=== PATIENT | male | born 1995 ===

== ENCOUNTER 2019-06-23 15:45 | Inpatient (IN) | payer BC ==
[~2019-06-23] VITALS: Ht 190.5 cm; Wt 93.1 kg
[2019-06-23] MEDS ORDERED: acetaminophen 325mg tablet PO PRN (18:25)
[2019-06-23] MEDS ORDERED: LORazepam 1 MG tablet PO PRN (18:25)
[2019-06-23] MEDS ORDERED: loperamide 2mg capsule PO PRN (18:25)
[2019-06-23] MEDS ORDERED: diphenhydrAMINE 25mg capsule PO PRN (18:25)
[2019-06-23] MEDS ORDERED: haloperidol 5mg tablet PO PRN (18:25)
[2019-06-23] MEDS ORDERED: mag hydrox/Alum hydrox/simeth 30ml oral suspension PO PRN (18:25)
[2019-06-23 19:04] VITALS: BP 134/78
[2019-06-23] MEDS ORDERED: TRAM50TA2 PO (19:26)
[2019-06-23] MEDS ORDERED: LURA60TA2 PO (19:26)
[2019-06-23] MEDS ORDERED: TRAZ-256 PO (19:26)
[2019-06-23] MEDS ORDERED: IBUP-1984 PO (19:26)
[2019-06-23] MEDS: acetaminophen 325mg tablet PO PRN (19:33)
[2019-06-23] MEDS ORDERED: traMADol 50MG tablet PO PRN (20:00)
[2019-06-23] MEDS: traZODone 50mg tablet PO SCH ×2 (20:42→21:25)
[2019-06-23] MEDS: lurasidone 60mg tablet PO SCH (20:42)
[2019-06-23] MEDS ORDERED: oxyCODONE IR 5mg (immed. release) tablet PO ONE (22:20)
--- NOTE | 2019-06-23 23:59 | NUR ---
Admission note: Pt admitted to [facility] on 5150 for DTS at 1800. Pt was transferred from [facility] where he was in the ICU for several days due to overdose on Wellbutrin. Apparently he took about 3000mg of this medication. He also has self-inflected lacerations to his wrists bilaterally. According to notes from [facility] medical records, they had to be surgically repaired and there was some nerve and tendon damage. Dressing has been changed and pictures are in his chart. Pt states that this is his first suicidal attempt but was diagnosed with depression in 2016. Pt states feeling "out of it, and just very depressed and hopeless." Pt also states he believes he is bipolar but no diagnoses has been made. There is no other medical history. Pt was oriented to the unit and his personal belonging were inventoried and stored by Mario COLON.
[2019-06-24] MEDS ORDERED: ibuprofen tablet 400 MG TABLET PO SCH
[2019-06-24] MEDS: lurasidone 60mg tablet PO SCH (07:38)
[2019-06-24] MEDS: oxyCODONE IR 5mg (immed. release) tablet PO PRN ×2 (07:39→21:08)
[2019-06-24 07:40] LABS: HEMOGLOBIN A1C 5.1 % (4.5-6.2)
[2019-06-24 07:54] LABS: CHOL/HDL RATIO 4.1 (0.00-4.99); CHOLESTEROL 128 MG/DL (0-200); HDL CHOLESTEROL 31 MG/DL (35-60); LDL CHOLESTEROL 86 MG/DL (50-100); TRIGLYCERIDES 101 MG/DL (20-135)
[2019-06-24 08:00] VITALS: BP 153/57
[2019-06-24] MEDS ORDERED: ondansetron 4mg rapidly disintigrating tab PO PRN (08:20)
[2019-06-24] MEDS: traMADol 50MG tablet PO PRN (10:36)
[2019-06-24] MEDS: ibuprofen tablet 400 MG TABLET PO PRN (14:33)
[2019-06-24] MEDS: LORazepam 1 MG tablet PO PRN (14:33)
[2019-06-24] MEDS: acetaminophen 325mg tablet PO PRN (14:33)
--- NOTE | 2019-06-24 15:55 | NUR ---
PSYCHOSOCIAL ASSESSMENT Pascual is a 24 y/o single male who was placed on 5150 for danger to self. He had been visiting his uncle and cousins in [facility] and began to experience extreme anxiety which led to suicidal ideation. He cut both wrists laterally which resulted in nerve and ligament damage which required surgery. He also overdosed on Wellbutrin. He reported he cut himself and overdosed in an attempt to end his life. He reported he called 911 himself. He ended up in the ICU due to the overdose. Pascual reported he was hospitalized at [facility] for 11 days in 2018 due to a psychotic episode. He described this episode as he was hearing voices, was paranoid, not sleeping, and was struggling with living on his own and going to college. He reported he was hospitalized again at [facility] 3-4 months ago for 3 days due to erratic behavior. He presented as significantly depressed and hopeless. He indicated feeling hopeless about his current physical limitations due to injuries to both arms. He reported he is still having suicidal ideation. He currently sees a psychiatrist, Dr Zaragoza, at [facility] and sees a therapist, [facility], weekly. TERRENCE Resendiz Addendum: 06/24/19 at 1556 by Milagros Lai Amended: Links added.
--- NOTE | 2019-06-24 16:10 | NUR ---
NURSING PROGRESS NOTE Legal hold: 5150 Client on involuntary status for DTS Report received from BARAK Mahoney with use of SBAR Why are they here: Pt admitted to [facility] on 5150 for DTS. Pt was transferred from [facility] where he was in the ICU for several days due to overdose on 3000mg Wellbutrin. He also has self-inflicted lacerations with sutures to bilateral wrists with tendon and nerve damage. Pt states that this is his first suicidal attempt and was diagnosed with depression in 2016. Pt states feeling "out of it, and just very depressed and hopeless." Assessment What has happened this shift: Asleep at change of shift. Depressed mood, flat affect. Bilateral forearms in splints/wraps. Has multiple LAC's with suturing per wound pictures and c/o pain, burning and some numbness to left fingers. Medicated for pain with Oxy ER, Ultram, Motrin and Tylenol. C/O nausea and obtained order for Zofran. The patient also was given Ativan 1mg for anxiety. He was up on the unit and watching TV briefly. Was able to lay down in afternoon and fall asleep. States he feels severely depressed and hopeless and is having suicidal thoughts. Wound consult was ordered and hospitalist visited patient today. Medication compliant and eating meals. Due to difficulty in cutting food diet order changed to chopped foods. Needs help with ADL's and positioning support pillows due to wounds. S/I, H/I: suicidal thoughts A/VH: denies Sleep: napped ADL's: needs assistance due to splints Group attendance: N/A Were meds taken: yes Any med S/E: none Mental Status Exam Appearance: street clothes, disheveled Eye contact: fair Behavior: cooperative Speech: slow, soft Mood: depressed Affect: flat, hopeless Thought process: linear Thought Content: hopelessness Cognition: alert Insight: poor Judgment: poor Interventions PRN's used: Oxy ER, Zofran, Ultram, Motrin, Tylenol, Ativan Therapeutic interventions: 1:1 assessment, established rapport, active listening, medication administration/education/monitoring, encouragement to participate in milieu, maintained q15m safety checks. Restraints/seclusion/emergency medication: None Justification of Continued Inpatient Treatment: Requires interruption of current crisis, medication adjustments, and a safe and supportive environment to prevent readmission.
[2019-06-24] MEDS ORDERED: gabapentin 300mg capsule PO STA (20:00)
[2019-06-24 20:19] VITALS: BP 118/79
[2019-06-24] MEDS ORDERED: lurasidone 60mg tablet PO ONE (20:45)
[2019-06-24] MEDS: traZODone 50mg tablet PO SCH (21:01)
--- NOTE | 2019-06-25 00:30 | NUR ---
NURSING PROGRESS NOTE Legal hold: 5150 Client on involuntary status for DTS Report received from BARAK Mixon with use of SBAR Why are they here: Pt admitted to [facility] on 5150 for DTS. Pt was transferred from [facility] where he was in the ICU for several days due to overdose on 3000mg Wellbutrin. He also has self-inflicted lacerations with sutures to bilateral wrists with tendon and nerve damage. Pt states that this is his first suicidal attempt and was diagnosed with depression in 2016. Pt states feeling "out of it, and just very depressed and hopeless." Assessment What has happened this shift: Pt was in his room during shift change and appeared to be sleeping comfortably. He is till complaining of significant pain to his hands. He was started on Gabapentin and per provider order, first dose was given today and his dose of midnight will be held. He also received Oxy IR 5mg for a 6/10 pain. Pt states that this helps him sleep as well and reports some pain relief from this medication. There was other medication adjustment made, including some changes with his Latuda. He was cooperative during 1:1 physical assessment and took his HS meds. He states that he feels better and his main complain is his pain. He denies any anxiety however, still appears pretty hopeless and depressed. Pt is still endorsing some suicidal thoughts. He remains isolative to his room for most of the evening and night. S/I, H/I: passive S/I, denies H/I A/VH: Denies Sleep: Currently sleeping, see sleep assessment for total hours ADL's: mostly independent, needs some assistance due to splints Group attendance: None during tax analyst Were meds taken: yes Any med S/E: none observed or reported Mental Status Exam Appearance: Appropriate, wearing personal clothing Eye contact: Direct Behavior: cooperative, guarded, isolative Speech: Normal rate and rhythm Mood: pt states he is feeling better but still appears very depressed Affect: Flat Thought process: linear Thought Content: Managing his pain, medication, being able to sleep at night Cognition: Alert and oriented X4 Insight: poor Judgment: poor Interventions PRN's used: Oxy IR 5mg X1 Therapeutic interventions: 1:1 assessment, established rapport, active listening, medication administration/education/monitoring, encouragement to participate in milieu, maintained q15m safety checks. Restraints/seclusion/emergency medication: None Justification of Continued Inpatient Treatment: Requires interruption of current crisis, medication adjustments, and a safe and supportive environment to prevent readmission.
[2019-06-25 08:00] VITALS: BP 101/55
[2019-06-25] MEDS: ibuprofen tablet 400 MG TABLET PO PRN ×2 (08:09→16:14)
[2019-06-25] MEDS: gabapentin 300mg capsule PO SCH ×3 (08:09→16:14)
[2019-06-25] MEDS: oxyCODONE IR 5mg (immed. release) tablet PO PRN ×2 (08:10→17:35)
[2019-06-25] MEDS: docusate sod 100mg capsule PO SCH ×2 (08:12→20:19)
[2019-06-25] MEDS: lurasidone 60mg tablet PO SCH ×2 (12:17→17:35)
[2019-06-25] MEDS: traMADol 50MG tablet PO PRN ×2 (12:45→20:27)
--- NOTE | 2019-06-25 14:31 | NUR ---
NURSING PROGRESS NOTE Legal hold: 5150 Client on involuntary status for DTS Report received from ROSALBA Man, with use of SBAR Why are they here: Pt admitted to [facility] on 5150 for DTS. Pt was transferred from [facility] where he was in the ICU for several days due to overdose on 3000mg Wellbutrin. He also has self-inflicted lacerations with sutures to bilateral wrists with tendon and nerve damage. Pt states that this is his first suicidal attempt and was diagnosed with depression in 2016. Pt states feeling "out of it, and just very depressed and hopeless." Assessment What has happened this shift: Asleep at change of shift. Depressed mood, flat affect. Eating meals and medication compliant. Pain to bilat wrists injuries. Given OXY ER, Ultram and Motrin. also now has order for gabapentin which seems to be helping. Wound care nurse evaluated patient today and placed new wound care orders. Splints are to stay on for 6-8 weeks. Patient was up to shower with assist and had BM today. Education provided regarding disease process ad managing and living with mental illness which was well received. Smiling a bit today. Wounds cleansed and dressed today, splints remain in place. S/I, H/I: denies A/VH: denies Sleep: napped ADL's: needs assistance due to splints Group attendance: N/A Were meds taken: yes Any med S/E: none Mental Status Exam Appearance: Eye contact: fair Behavior: cooperative Speech: slow, soft Mood: depressed Affect: flat Thought process: linear Thought Content: the past and future Cognition: alert Insight: poor Judgment: poor Interventions PRN's used: Oxy ER, Ultram, Motrin Therapeutic interventions: 1:1 assessment, established rapport, active listening, medication administration/education/monitoring, encouragement to participate in milieu, maintained q15m safety checks. Restraints/seclusion/emergency medication: None Justification of Continued Inpatient Treatment: Requires interruption of current crisis, medication adjustments, and a safe and supportive environment to prevent readmission.
--- NOTE | 2019-06-25 15:17 | NUR ---
PHONE CALL W/MOM Spoke to Pascual's mom, Joycelyn (ph# [phone]) multiple times. Answered questions and requested she bring Pascual a few clothing items and books that he requested. [employer] Offbearer encouraged Pascual to call his therapist, [facility], to schedule a time to talk to him next week. Joycelyn requested we talk to Pascual's psychiatrist Dr Zaragoza to coordinate care. Dr Zaragoza: ph# [phone] (6 to reach minute clerk) ext: [phone] Zaragoza's respiratory care assistant, TERRENCE Monreal
[2019-06-25] MEDS: acetaminophen 325mg tablet PO PRN (16:15)
[2019-06-25] MEDS ORDERED: ondansetron 4mg rapidly disintigrating tab PO PRN (18:30)
[2019-06-25 20:05] VITALS: BP 124/67
[2019-06-25] MEDS: traZODone 50mg tablet PO SCH (20:19)
--- NOTE | 2019-06-26 00:42 | NUR ---
NURSING PROGRESS NOTE Legal hold: 5150 Client on involuntary status for DTS Report received from BARAK Mixon with use of SBAR Why are they here: Pt admitted to [facility] on 5150 for DTS. Pt was transferred from [facility] where he was in the ICU for several days due to overdose on 3000mg Wellbutrin. He also has self-inflicted lacerations with sutures to bilateral wrists with tendon and nerve damage. Pt states that this is his first suicidal attempt and was diagnosed with depression in 2016. Pt states feeling "out of it, and just very depressed and hopeless." Assessment What has happened this shift: Pt was in his room during shift change wearing green unit scrubs. He says he had a good day as he talked to his therapist a and his mom so that was nice. Pt is still complaining of a 7/10 pain, even after taking Oxy. He states that it doesnt really help much with the pain it just makes him not care as much. Pt states that he would like to go to bed early. There was no wound dressing change done as this is a once a day order. Pt states that he feels a little bit better but still not too good. He is endorsing S/I not right now but often times through out the day. When asked about anxiety he states that he is having a little bit, just from being here. Although there has been some improvement in patients mood, as he was socializing and smiling with other patients, he still presents as depressed. Tramadol was given at patients request with good effect. S/I, H/I: passive S/I, denies H/I A/VH: Denies Sleep: Currently sleeping, see sleep assessment for total hours ADL's: mostly independent, needs some assistance due to splints Group attendance: None during night auditor Were meds taken: yes Any med S/E: none observed or reported Mental Status Exam Appearance: Appropriate, green unit scrubs Eye contact: Direct Behavior: cooperative, calm, interacting with other patients in the unit Speech: Normal rate and rhythm Mood: Depressed Affect: Flat Thought process: linear Thought Content: Managing his pain, depression and anxiety. Cognition: Alert and oriented X4 Insight: poor Judgment: poor Interventions PRN's used: Tramadol X1 Therapeutic interventions: 1:1 assessment, established rapport, active listening, medication administration/education/monitoring, encouragement to participate in milieu, maintained q15m safety checks. Restraints/seclusion/emergency medication: None Justification of Continued Inpatient Treatment: Requires interruption of current crisis, medication adjustments, and a safe and supportive environment to prevent readmission.
[2019-06-26 07:25] VITALS: BP 135/66
[2019-06-26] MEDS: gabapentin 300mg capsule PO SCH ×3 (08:06→16:01)
[2019-06-26] MEDS: docusate sod 100mg capsule PO SCH ×2 (08:06→20:19)
[2019-06-26] MEDS: lurasidone 60mg tablet PO SCH ×2 (12:27→17:39)
[2019-06-26] MEDS: oxyCODONE IR 5mg (immed. release) tablet PO PRN ×2 (12:40→20:19)
--- NOTE | 2019-06-26 16:33 | NUR ---
PT here for consult with pt. Per PT pt should keep Right wrist as straight as possible at all times. With his Left hand he should do simple finger stretches through the day. PT will come every day to work with him as well.
--- NOTE | 2019-06-26 17:24 | NUR ---
NURSING PROGRESS NOTE Legal hold: 5150 Client on involuntary status for DTS Report received from ROSALBA Man with use of SBAR Why are they here: Pt admitted to [facility] on 5150 for DTS. Pt was transferred from [facility] where he was in the ICU for several days due to overdose on 3000mg Wellbutrin. He also has self-inflicted lacerations with sutures to bilateral wrists with tendon and nerve damage. Pt states that this is his first suicidal attempt and was diagnosed with depression in 2016. Pt states feeling "out of it, and just very depressed and hopeless." Assessment What has happened this shift: Pt was in bed at beginning of shift. He ate breakfast and took medications. He denies SI/HI/ AH/VH, states ok for now and when asked about anxiety and depression he states not yet. Pt bilateral splints in tact. He then slept for the morning. Bilateral Dressing changes and wound care as per instruction done after lunch. Cap refill <3 with + motion. Decreased sensation bilaterally but Left more than right. He remained in bed most of the day sleeping. PT came for consult. S/I, H/I: Denies A/VH: Denies Sleep: 8.5h per noc assessment ADL's: Independent with some assist for bilateral splints Group attendance: No groups at this time. Were meds taken: Yes Any med S/E: None Mental Status Exam Appearance: Wearing his own shirt and green scrub pants. Eye contact: Direct Behavior: Quiet, depressed Speech: WNL Mood: Ok Affect: Congruent to mood Thought process: Circumstantial Thought Content: Concerned about extent of damage to upper extremities Cognition: Alert and oriented X4 Insight: poor Judgment: poor Interventions PRN's used: Oxy IR Therapeutic interventions: 1:1 assessment, established rapport, active listening, medication administration/education/monitoring, encouragement to participate in milieu, maintained q15m safety checks. Restraints/seclusion/emergency medication: None Justification of Continued Inpatient Treatment: Requires interruption of current crisis, medication adjustments, and a safe and supportive environment to prevent readmission.
[2019-06-26] MEDS: ibuprofen tablet 400 MG TABLET PO PRN (18:48)
[2019-06-26 19:36] VITALS: BP 138/89
[2019-06-26] MEDS: traZODone 50mg tablet PO SCH (20:18)
--- NOTE | 2019-06-27 00:01 | NUR ---
NURSING PROGRESS NOTE Legal hold: 5150 Client on involuntary status for DTS Report received from ROSALBA Mixon with use of SBAR Why are they here: Pt admitted to [facility] on 5150 for DTS. Pt was transferred from [facility] where he was in the ICU for several days due to overdose on 3000mg Wellbutrin. He also has self-inflicted lacerations with sutures to bilateral wrists with tendon and nerve damage. Pt states that this is his first suicidal attempt and was diagnosed with depression in 2016. Pt states feeling "out of it, and just very depressed and hopeless." Assessment: What has happened this shift: Pt in room at start of shift. A+Ox4 Guarded, affect blunted, minimal answers to questions. Does not volunteer information. Given Motrin for pain per request, also given Oxy IR when due at 21:00. Pt declined Dressing change "done already today only supposed to be done once a day" States he is depressed which he rates 6/10 which he says is better than he has been. Admits to , asked if he has a plan "Not really" Pt came briefly to group room sat in the corner interacted with another pt who approached him then returned to room. S/I, H/I: Denies A/VH: Denies Sleep: asleep ADL's: Independent with some assist for bilateral splints Group attendance: No groups at this time. Were meds taken: Yes Any med S/E: None Mental Status Exam Appearance: Wearing his own shirt and green scrub pants. Eye contact: Direct Behavior: Quiet, depressed Speech: WNL Mood: Ok Affect: Congruent to mood Thought process: Circumstantial Thought Content: Concerned about extent of damage to upper extremities Cognition: Alert and oriented X4 Insight: poor Judgment: poor Interventions PRN's used: Oxy IR, Motrin Therapeutic interventions: 1:1 assessment, established rapport, active listening, medication administration/education/monitoring, encouragement to participate in milieu, maintained q15m safety checks. Restraints/seclusion/emergency medication: None Justification of Continued Inpatient Treatment: Requires interruption of current crisis, medication adjustments, and a safe and supportive environment to prevent readmission.
[2019-06-27] MEDS: gabapentin 300mg capsule PO SCH ×4 (07:39→20:22)
[2019-06-27] MEDS: docusate sod 100mg capsule PO SCH ×2 (07:39→20:21)
[2019-06-27 07:49] VITALS: BP 105/63
[2019-06-27] MEDS: oxyCODONE IR 5mg (immed. release) tablet PO PRN ×2 (07:57→20:21)
[2019-06-27] MEDS: ibuprofen tablet 400 MG TABLET PO PRN (13:14)
[2019-06-27] MEDS: lurasidone 60mg tablet PO SCH ×2 (13:14→18:06)
--- NOTE | 2019-06-27 16:13 | NUR ---
NURSING PROGRESS NOTE Legal hold: 5150 Client on involuntary status for DTS Report received from Alexandra Maharaj RN with use of SBAR Why are they here: Pt admitted to [facility] on 5150 for DTS. Pt was transferred from [facility] where he was in the ICU for several days due to overdose on 3000mg Wellbutrin. He also has self-inflicted lacerations with sutures to bilateral wrists with tendon and nerve damage. Pt states that this is his first suicidal attempt and was diagnosed with depression in 2016. Pt states feeling "out of it, and just very depressed and hopeless." Assessment What has happened this shift: Pt was resting in bed peacefully at change of shift. He denies SI/HI/ AH/VH, states "I regret what I did. I am in pain". PRN pain medication and scheduled gabapentin were administered. He took his medications without incident and ate his meals in his room. He was seen up and socializing with peers periodically throughout the day. Bilateral Dressing changes and wound care as per instruction done after lunch. Cap refill <3 with + motion. Decreased sensation bilaterally but Left more than right. Right hand and fingers cold to the touch, but no cyanosis or discoloration noted. He is pleasant and cooperative with care. S/I, H/I: Denies A/VH: Denies, does not appear to be responding to internal stimuli Sleep: naps intermittently before lunch ADL's: Independent with some assist for bilateral splints and covering dressings to bathe Group attendance: No groups at this time. Were meds taken: Yes Any med S/E: None Mental Status Exam Appearance: Wearing his own shirt and shorts Eye contact: Direct Behavior: withdrawn, depressed Speech: normal rate and cyn Mood: "I am alright", appears depressed Affect: Congruent to mood Thought process: Circumstantial Thought Content: Concerned about extent of damage to upper extremities, wondering if PT will visit today. in pain Cognition: Alert and oriented X4 Insight: poor Judgment: poor Interventions PRN's used: Oxy IR, motrin Therapeutic interventions: 1:1 assessment, established rapport, active listening, medication administration/education/monitoring, encouragement to participate in milieu, maintained q15m safety checks. Restraints/seclusion/emergency medication: None Justification of Continued Inpatient Treatment: Requires interruption of current crisis, medication adjustments, and a safe and supportive environment to prevent readmission.
[2019-06-27 19:50] VITALS: BP 134/68
[2019-06-27] MEDS: traZODone 50mg tablet PO SCH (20:21)
--- NOTE | 2019-06-27 23:24 | NUR ---
NURSING PROGRESS NOTE Legal hold: 5150 Client on involuntary status for DTS Report received from Alexandra Mixon RN with use of SBAR Why are they here: Pt admitted to [facility] on 5150 for DTS. Pt was transferred from [facility] where he was in the ICU for several days due to overdose on 3000mg Wellbutrin. He also has self-inflicted lacerations with sutures to bilateral wrists with tendon and nerve damage. Pt states that this is his first suicidal attempt and was diagnosed with depression in 2016. Pt states feeling "out of it, and just very depressed and hopeless." Assessment What has happened this shift: Pt up on unit at change of shift. He watched a movie in group room with other pts. PRN pain medication and scheduled gabapentin for bilateral arm pain rated 7 by pt. He is pleasant and cooperative with care. Pt affect is depressed he reports his depression has improved since admit he says he has "occasional" suicidal thoughts but no plan. Bilateral Dressings CD+I . Decreased sensation bilaterally but Left more than right. Right hand and fingers cooler than left to the touch, but pink with good capillary refill. S/I, H/I: Denies A/VH: Denies, does not appear to be responding to internal stimuli Sleep: asleep at this time ADL's: Independent with some assist for bilateral splints and covering dressings to bathe Group attendance: No groups at this time. Were meds taken: Yes Any med S/E: None Mental Status Exam Appearance: Wearing his own shirt and shorts Eye contact: Direct Behavior: withdrawn, depressed Speech: normal rate and cyn Mood: "I am alright", appears depressed Affect: Congruent to mood Thought process: Circumstantial Thought Content: Concerned about extent of damage to upper extremities, wondering if PT will visit today. in pain Cognition: Alert and oriented X4 Insight: poor Judgment: poor Interventions PRN's used: Oxy IR, motrin Therapeutic interventions: 1:1 assessment, established rapport, active listening, medication administration/education/monitoring, encouragement to participate in milieu, maintained q15m safety checks. Restraints/seclusion/emergency medication: None Justification of Continued Inpatient Treatment: Requires interruption of current crisis, medication adjustments, and a safe and supportive environment to prevent readmission.
[2019-06-28 08:00] VITALS: BP 118/66
[2019-06-28] MEDS: docusate sod 100mg capsule PO SCH ×2 (08:03→19:30)
[2019-06-28] MEDS: ibuprofen tablet 400 MG TABLET PO PRN (08:03)
[2019-06-28] MEDS: gabapentin 300mg capsule PO SCH ×3 (08:03→19:31)
[2019-06-28] MEDS: oxyCODONE IR 5mg (immed. release) tablet PO PRN ×2 (10:29→17:35)
--- NOTE | 2019-06-28 11:05 | NUR ---
Initial: Pt admit on 5150 w/ SI, bilateral wrist lacerations currently sutured and intact without signs of infection per WOC, and r/o schizoaffective bipolar disorder per PA note. S/p L median nerve repair since laceration damage from SI per EMR. PO 75-100% avg regular diet meeting needs; Edward shake BIDBD added to meals given wounds. PA notified. LBM 06/25. No nutrition concerns at this time. Will continue to monitor. Rec: 1. continue regular diet 2. Edward shake BIDBD 3. routine bowel care 4. wt per rx Addendum: 06/28/19 at [address] Amended: Links added.
[2019-06-28] MEDS: lurasidone 60mg tablet PO SCH ×2 (12:15→17:31)
[2019-06-28] MEDS: traMADol 50MG tablet PO PRN ×2 (12:15→19:31)
[2019-06-28] MEDS: magnesium hydroxide 30ml (MOM) UD suspension PO PRN (13:01)
--- NOTE | 2019-06-28 14:44 | NUR ---
NURSING PROGRESS NOTE Legal hold: 5150 Client on involuntary status for DTS Report received from Alexandra Maharaj RN with use of SBAR Why are they here: Pt admitted to [place] [facility] on 5150 for DTS. Pt was transferred from [facility] where he was in the ICU for several days due to overdose on 3000mg Wellbutrin. He also has self-inflicted lacerations with sutures to bilateral wrists with tendon and nerve damage. Pt states that this is his first suicidal attempt and was diagnosed with depression in 2016. Pt states feeling "out of it, and just very depressed and hopeless." Assessment What has happened this shift: Pt was resting in bed peacefully at change of shift. He is pleasant and cooperative with care and takes his medications without incident. Patient reports that his pain in his arms, especially in his right are getting worse since his surgery. Patient was seen by Dr. He and per Dr. He, patient will now need assistance with feeding to rest his bilateral upper extremities. He received PRN Motrin, Tramadol and oxycodone. Dressings changed and are currently CDI with bilateral splints in place to limit ROM and usage. He currently denies SI/HI, A/VH and has had some moments of brightening, smiling at this RN during conversation, however, he remains distant and blunted. Spoke to patient's mother, Joycelyn ([phone]), who is very supportive of patient and states that the patient was becoming increasingly more depressed as he was tapering off of the olanzapine. She reports that the patient was on Wellbutrin for approximately 5 days when he had his attempt. Patient's mother is hoping to speak to Dr. He at some point, but Dr. He had left the unit prior to the conversation with patient's mother. S/I, H/I: Denies A/VH: Denies, does not appear to be responding to internal stimuli Sleep: naps intermittently before lunch ADL's: Independent with some assist for bilateral splints and covering dressings to bathe Group attendance: No groups at this time. Were meds taken: Yes Any med S/E: None Mental Status Exam Appearance: Wearing his own shirt and shorts Eye contact: Direct Behavior: withdrawn, depressed Speech: normal rate and cyn Mood: "I am alright", appears depressed Affect: Congruent to mood Thought process: Circumstantial Thought Content: Concerned about extent of damage to upper extremities, wondering if PT will visit today. in pain Cognition: Alert and oriented X4 Insight: poor Judgment: poor Interventions PRN's used: Oxy IR, motrin Therapeutic interventions: 1:1 assessment, established rapport, active listening, medication administration/education/monitoring, encouragement to participate in milieu, maintained q15m safety checks. Restraints/seclusion/emergency medication: None Justification of Continued Inpatient Treatment: Requires interruption of current crisis, medication adjustments, and a safe and supportive environment to prevent readmission.
[2019-06-28] MEDS: JUVEN Shake w/Arg/Glut/Ca2+Bmb (Juven 19.3gm) pkt 240ml PO SCH (17:30)
[2019-06-28 20:00] VITALS: BP 131/80
[2019-06-28] MEDS: traZODone 50mg tablet PO SCH (20:03)
--- NOTE | 2019-06-28 21:25 | NUR ---
NURSING PROGRESS NOTE Legal hold: 5150 Client on involuntary status for DTS Report received from Alexandra Maharaj RN with use of SBAR Why are they here: Pt admitted to [place] [facility] on 5150 for DTS. Pt was transferred from [facility] where he was in the ICU for several days due to overdose on 3000mg Wellbutrin. He also has self-inflicted lacerations with sutures to bilateral wrists with tendon and nerve damage. Pt states that this is his first suicidal attempt and was diagnosed with depression in 2016. Pt states feeling "out of it, and just very depressed and hopeless." Assessment What has happened this shift: Pt was in the sutton at change of shift, reports he just finished dinner and appetite is good. pt requested assistance with brushing his teeth and changing his rubber bands on his braces. Pt continues to have pain in his arms and ultram was provided with evening meds. He states he would like to go to bed early and was assisted with getting into bed. S/I, H/I: Denies A/VH: Denies, does not appear to be responding to internal stimuli Sleep: reports sleeping well at night ADL's: Independent with some assist for bilateral splints and covering dressings to bathe, also needs help brushing teeth, getting into bed and eating Group attendance: No groups at this time. Were meds taken: Yes Any med S/E: None Mental Status Exam Appearance: Wearing his own shirt and shorts Eye contact: Direct Behavior: withdrawn, depressed Speech: normal rate and rhythm Mood: pt reports hes feeling "better" Affect: Congruent to mood Thought process: Circumstantial Thought Content: Pain and wanting to go to sleep early Cognition: Alert and oriented X4 Insight: poor Judgment: poor Interventions PRN's used: ultram Therapeutic interventions: 1:1 assessment, established rapport, active listening, medication administration/education/monitoring, encouragement to participate in milieu, maintained q15m safety checks. Restraints/seclusion/emergency medication: None Justification of Continued Inpatient Treatment: Requires interruption of current crisis, medication adjustments, and a safe and supportive environment to prevent readmission.
[2019-06-29] MEDS: JUVEN Shake w/Arg/Glut/Ca2+Bmb (Juven 19.3gm) pkt 240ml PO SCH ×2 (07:30→17:30)
[2019-06-29 08:00] VITALS: BP 116/83
[2019-06-29] MEDS: gabapentin 300mg capsule PO SCH ×2 (08:26→13:31)
[2019-06-29] MEDS: docusate sod 100mg capsule PO SCH ×2 (08:26→20:04)
[2019-06-29] MEDS: traMADol 50MG tablet PO PRN ×2 (08:34→19:02)
[2019-06-29] MEDS: oxyCODONE IR 5mg (immed. release) tablet PO PRN ×2 (12:11→20:04)
[2019-06-29] MEDS: lurasidone 60mg tablet PO SCH ×2 (12:49→17:53)
[2019-06-29] MEDS: ibuprofen tablet 400 MG TABLET PO PRN (13:31)
--- NOTE | 2019-06-29 17:39 | NUR ---
NURSING PROGRESS NOTE Legal hold: 5150 Client on involuntary status for DTS Report received from ROSALBA Mahoney with use of SBAR Why are they here: Pt admitted to [place] [facility] on 5150 for DTS. Pt was transferred from [facility] where he was in the ICU for several days due to overdose on 3000mg Wellbutrin. He also has self-inflicted lacerations with sutures to bilateral wrists with tendon and nerve damage. Pt states that this is his first suicidal attempt and was diagnosed with depression in 2016. Pt states feeling "out of it, and just very depressed and hopeless." Assessment What has happened this shift: Pt sleeping at start of shift. Pt awoke for breakfast. During his morning assessment pt c/o pain 7/10 bilateral wrists. Provided Tylenol then followed up w/Oxycodone. Pt later given Motrin. Pt came out and joined peers for a movie socializing some w/both staff and peers. Provided assistance with drinking, eating and brushing his teeth. S/I, H/I: Denies A/VH: Denies Sleep: Napped in AM ADL's: Max assist Group attendance: N/A. Were meds taken: Yes Any med S/E: None Mental Status Exam Appearance: Wears his own clothing Eye contact: Direct Behavior: withdrawn, depressed Speech: Clear, normal rate and rhythm Mood: Appears depressed Affect: Congruent to mood Thought process: Circumstantial Thought Content: He is concerned about the damage to his arms Cognition: A/Ox4 Insight: Fair Judgment: Poor Interventions PRN's used: Oxy IR, Motrin, Tylenol Therapeutic interventions: 1:1 assessment, established rapport, active listening, medication administration/education/monitoring, encouragement to participate in milieu, maintained q15m safety checks. Restraints/seclusion/emergency medication: None Justification of Continued Inpatient Treatment: Requires interruption of current crisis, medication adjustments, and a safe and supportive environment to prevent readmission.
[2019-06-29] MEDS: LORazepam 1 MG tablet PO PRN (18:00)
[2019-06-29 20:00] VITALS: BP 147/81
[2019-06-29] MEDS: gabapentin 400mg capsule PO SCH ×2 (20:04→21:00)
[2019-06-29] MEDS: traZODone 50mg tablet PO SCH (20:04)
--- NOTE | 2019-06-29 23:46 | NUR ---
NURSING PROGRESS NOTE Legal hold: 5150 Client on involuntary status for DTS Report received from ROSALBA Spear with use of SBAR Why are they here: Pt admitted to [place] [facility] on 5150 for DTS. Pt was transferred from [facility] where he was in the ICU for several days due to overdose on 3000mg Wellbutrin. He also has self-inflicted lacerations with sutures to bilateral wrists with tendon and nerve damage. Pt states that this is his first suicidal attempt and was diagnosed with depression in 2016. Pt states feeling "out of it, and just very depressed and hopeless." Assessment What has happened this shift: Pt was sitting in his room at change of shift. He c/o breakthrough pain 8/10 in bilateral wrists. Pt was given ultram PRN but states it doesn't help much with his pain and he would like his meds as early as possible because he wants to go to sleep. Pt requested more pain meds about an hour later. Pt took prn oxy with evening meds. Pt reports feeling depressed about 4/10, he explains that during the late afternoon of most days his depression increases to a 7/10 before it goes back down. Pt reports appetite is good. Pt did not want his dressing changed tonight states he is tired. Dressings are currently CDI. S/I, H/I: Denies A/VH: Denies Sleep: states he is tired and wants to go to bed. ADL's: Needs assistance with eating, brushing his teeth, due to arm pain. Group attendance: N/A. Were meds taken: Yes Any med S/E: None Mental Status Exam Appearance: Wears his own clothing Eye contact: Direct Behavior: withdrawn, depressed Speech: Clear, normal rate and rhythm Mood: Depressed Affect: Congruent to mood Thought process: Circumstantial Thought Content: He is concerned about the damage to his arms Cognition: A/Ox4 Insight: Fair Judgment: Poor Interventions PRN's used: Oxy IR, ultram Therapeutic interventions: 1:1 assessment, established rapport, active listening, medication administration/education/monitoring, encouragement to participate in milieu, maintained q15m safety checks. Restraints/seclusion/emergency medication: None Justification of Continued Inpatient Treatment: Requires interruption of current crisis, medication adjustments, and a safe and supportive environment to prevent readmission.
[2019-06-30] MEDS: JUVEN Shake w/Arg/Glut/Ca2+Bmb (Juven 19.3gm) pkt 240ml PO SCH ×2 (07:30→17:30)
[2019-06-30 08:00] VITALS: BP 122/70
[2019-06-30] MEDS: docusate sod 100mg capsule PO SCH ×2 (08:00→20:06)
[2019-06-30] MEDS: gabapentin 400mg capsule PO SCH ×4 (08:00→20:06)
[2019-06-30] MEDS: acetaminophen 325mg tablet PO PRN ×2 (08:27→20:08)
[2019-06-30] MEDS: oxyCODONE IR 5mg (immed. release) tablet PO PRN ×2 (10:39→17:36)
[2019-06-30] MEDS: lurasidone 60mg tablet PO SCH ×2 (12:27→17:44)
--- NOTE | 2019-06-30 15:27 | NUR ---
NURSING PROGRESS NOTE Legal hold: 5150 Client on involuntary status for DTS Report received from ROSALBA Mahoney with use of SBAR Why are they here: Pt admitted to [place] [facility] on 5150 for DTS. Pt was transferred from [facility] where he was in the ICU for several days due to overdose on 3000mg Wellbutrin. He also has self-inflicted lacerations with sutures to bilateral wrists with tendon and nerve damage. Pt states that this is his first suicidal attempt and was diagnosed with depression in 2016. Pt states feeling "out of it, and just very depressed and hopeless." Assessment What has happened this shift: Provided 1:1 assessment at bedside. Pt stresses he does not want his parents to provide personal care for him when he goes home. He shared he would prefer to go to a rehab or have a home health nurse come in his home to help with his care. Pt given PRN's for pain as requested. He was observed watching TV and walking in the halls socializing w/peers a few times today. S/I, H/I: Denies A/VH: Denies Sleep: Napped in AM ADL's: Max assist Group attendance: N/A Were Meds taken: Yes Any med S/E: None Mental Status Exam Appearance: Wears his own clothing Eye contact: Direct Behavior: Calm, cooperative w/treatment Speech: Clear, normal rate and rhythm Mood: Appears depressed Affect: dysphoric, restricted Thought process: Linear Thought Content: Shared thoughts of his grandfather Cognition: A/Ox4 Insight: Fair Judgment: Poor Interventions PRN's used: Oxy IR, Tylenol Therapeutic interventions: Provided 1:1 assessment w/therapeutic communication and active listening, medication administration/education/monitoring, encouragement to participate in milieu, maintained q15m safety checks. Restraints/seclusion/emergency medication: None Justification of Continued Inpatient Treatment: Requires interruption of current crisis, medication adjustments, and a safe and supportive environment to prevent readmission.
[2019-06-30] MEDS: ibuprofen tablet 400 MG TABLET PO PRN (16:26)
[2019-06-30] MEDS: LORazepam 1 MG tablet PO PRN (17:36)
[2019-06-30 20:00] VITALS: BP 125/67
[2019-06-30] MEDS: traZODone 50mg tablet PO SCH (20:07)
[2019-06-30] MEDS: traMADol 50MG tablet PO PRN (20:09)
--- NOTE | 2019-07-01 00:28 | NUR ---
NURSING PROGRESS NOTE Legal hold: 5250 Client on involuntary status for DTS Report received from ROSALBA Spear with use of SBAR Why are they here: Pt admitted to [place] [facility] on 5150 for DTS. Pt was transferred from [facility] where he was in the ICU for several days due to overdose on 3000mg Wellbutrin. He also has self-inflicted lacerations with sutures to bilateral wrists with tendon and nerve damage. Pt states that this is his first suicidal attempt and was diagnosed with depression in 2016. Pt states feeling "out of it, and just very depressed and hopeless." Assessment What has happened this shift: Pt sitting in room and reading majority if shift. Pt states recent attempt was stresses from the pandemic and school. Pt vela snot elaborate much on his condition but states he has a good family and sees a therapist. "I don't like talking to my parents about my problems." Pt states depression is 6/10. Pt having breakthrough pain and given additional PRNs per mar to good effect. Pt compliant with medications. S/I, H/I: Denies "not really" A/VH: Denies Sleep: See Sleep Assessment ADL's: Needs assistance with eating, brushing his teeth, due to arm pain. Group attendance: N/A Were meds taken: Yes Any med S/E: None Mental Status Exam Appearance: Clean, wearing personal clothing Eye contact: Direct Behavior: Withdrawn, depressed, reading the bible Speech: Clear, normal rate and rhythm Mood: Depressed Affect: Flat Thought process: Linear Thought Content: wanting to sleep Cognition: A/Ox4 Insight: Fair Judgment: Poor Interventions PRN's used: Ultram, Tylenol Therapeutic interventions: 1:1 assessment, established rapport, active listening, medication administration/education/monitoring, encouragement to participate in milieu, maintained q15m safety checks. Restraints/seclusion/emergency medication: None Justification of Continued Inpatient Treatment: Requires interruption of current crisis, medication adjustments, and a safe and supportive environment to prevent readmission.
[2019-07-01] MEDS: JUVEN Shake w/Arg/Glut/Ca2+Bmb (Juven 19.3gm) pkt 240ml PO SCH ×2 (07:30→17:36)
[2019-07-01] MEDS: docusate sod 100mg capsule PO SCH ×2 (07:56→20:07)
[2019-07-01] MEDS: gabapentin 400mg capsule PO SCH ×4 (07:56→20:09)
[2019-07-01 09:18] VITALS: BP 108/65
[2019-07-01] MEDS: oxyCODONE IR 5mg (immed. release) tablet PO PRN ×2 (10:45→19:30)
[2019-07-01] MEDS: lurasidone 60mg tablet PO SCH (12:31)
[2019-07-01] MEDS: traMADol 50MG tablet PO PRN (12:32)
--- NOTE | 2019-07-01 16:45 | NUR ---
RN left a Message for Ortho Surgeon Kolby Robertson in [place] to find out when patients' sutures need to be removed. RN left the office phone number to call back and ask for charge nurse since RN is not working tomorrow. RN spoke to Physical Therapist who is working with patient. Patient's right splint needs to stay on for 4-5 weeks. Patient's left splint for 2 weeks.
--- NOTE | 2019-07-01 17:00 | NUR ---
NURSING PROGRESS NOTE Legal hold: 5150 Client on involuntary status for DTS Report received from ROSALBA Mahoney with use of SBAR Why are they here: Pt admitted to [place] [facility] on 5150 for DTS. Pt was transferred from [place] where he was in the ICU for several days due to overdose on 3000mg Wellbutrin. He also has self-inflicted lacerations with sutures to bilateral wrists with tendon and nerve damage. Pt states that this is his first suicidal attempt and was diagnosed with depression in 2016. Pt states feeling "out of it, and just very depressed and hopeless." Assessment What has happened this shift: Patient was asleep at change of shift and up for breakfast. Patient still needs help with eating and cleaning himself. Patient states to RN in Community room that he has been depressed for a while. Patient denies trauma in his life and says he has made some bad choices and is depressed. Patient states his depression gets worse in the afternoon. Patient is also having a lot of break through pain. Patient is an introvert and said he doesn't have a lot of maximiliano in his life. Patient lives with his parents, brothers and cousin in [place]. His konstantin has helped him. Patient feels bad/guilty for making such a mess of his life with the damage he has done to both of his wrists. Patient said the quarantine contributed to his depression. [facility] S/I, H/I: Denies A/VH: Denies Sleep: Napped in AM ADL's: Max assist Group attendance: N/A Were Meds taken: Yes Any med S/E: None Mental Status Exam Appearance: Wears his own clothing Eye contact: Direct Behavior: Calm, cooperative w/treatment Speech: Clear, normal rate and rhythm Mood: Appears depressed Affect: depressed Thought process: Linear Thought Content: feeling overwhelmed with his injuries Cognition: A/Ox4 Insight: Fair Judgment: Poor Interventions PRN's used: Oxy IR, Tylenol, Motrin Therapeutic interventions: Provided 1:1 assessment w/therapeutic communication and active listening, medication administration/education/monitoring, encouragement to participate in milieu, maintained q15m safety checks. Restraints/seclusion/emergency medication: None Justification of Continued Inpatient Treatment: Requires interruption of current crisis, medication adjustments, and a safe and supportive environment to prevent readmission.
[2019-07-01] MEDS: ibuprofen tablet 400 MG TABLET PO PRN (17:14)
--- NOTE | 2019-07-01 18:15 | NUR ---
Sutures need to be removed on 07/02/19 by RN. Message left from Dr. Kolby Robertson, Ortho Surgeon.
[2019-07-01] MEDS: acetaminophen 325mg tablet PO PRN (19:30)
[2019-07-01] MEDS: traZODone 50mg tablet PO SCH (20:05)
[2019-07-01] MEDS: lithium carbonate 150mg capsule PO SCH (20:08)
[2019-07-01] MEDS ORDERED: lurasidone 20mg tablet PO ONE (21:00)
[2019-07-01] MEDS ORDERED: lurasidone 20mg tablet PO SCH (21:00)
--- NOTE | 2019-07-02 01:20 | NUR ---
NURSING PROGRESS NOTE Legal hold: 5250 Client on involuntary status for DTS Report received from ROSALBA Maharaj with use of SBAR Why are they here: Pt admitted to [place] [facility] on 5150 for DTS. Pt was transferred from [facility] where he was in the ICU for several days due to overdose on 3000mg Wellbutrin. He also has self-inflicted lacerations with sutures to bilateral wrists with tendon and nerve damage. Pt states that this is his first suicidal attempt and was diagnosed with depression in 2016. Pt states feeling "out of it, and just very depressed and hopeless." Assessment What has happened this shift: Pt outside of his room majority of this shift and observed to be watching a movie. Pt still wanting to go to sleep, and wanted information regarding his medication changes. Pt endorses depression and anxiety, but denies SI. RN and pt discussed the state of his arms, and RN encouraged pt to seek help for his feelings before he reaches a critical peak, pt looked away teary eyed and then said "yes". Pt is guarded when discussing his mental health and minimizes the situation, redirecting the conversation or providing only minimal answers.Pt discussed prognosis being up in the air for his arms, but that he is managing okay and looking forward to the sutures being removed. Pt compliant with medications. S/I, H/I: Denies A/VH: Denies Sleep: See Sleep Assessment ADL's: Needs assistance with eating, brushing his teeth, due to arm pain. Group attendance: N/A Were meds taken: Yes Any med S/E: None reported nor observed Mental Status Exam Appearance: Clean, wearing personal clothing Eye contact: Intermittent Behavior: attended snack, watched a movie, pleasant, cooperative Speech: Clear, normal rate and rhythm Mood: Depressed and anxious Affect: Flat Thought process: Linear Thought Content: wanting to sleep, questions about medication changes Cognition: A/Ox4 Insight: Fair Judgment: Poor Interventions PRN's used: Oxy IR, Tylenol Therapeutic interventions: 1:1 assessment, established rapport, active listening, medication administration/education/monitoring, encouragement to participate in milieu, maintained q15m safety checks. Restraints/seclusion/emergency medication: None Justification of Continued Inpatient Treatment: Requires interruption of current crisis, medication adjustments, and a safe and supportive environment to prevent readmission.
[2019-07-02 07:30] VITALS: BP 130/61
[2019-07-02] MEDS: JUVEN Shake w/Arg/Glut/Ca2+Bmb (Juven 19.3gm) pkt 240ml PO SCH ×2 (08:12→17:53)
[2019-07-02] MEDS: venlafaxine XR 37.5mg cap (Q24H) PO SCH (08:12)
[2019-07-02] MEDS: lithium carbonate 150mg capsule PO SCH ×2 (08:13→20:04)
[2019-07-02] MEDS: docusate sod 100mg capsule PO SCH ×2 (08:13→20:04)
[2019-07-02] MEDS: gabapentin 400mg capsule PO SCH ×2 (08:13→12:54)
[2019-07-02] MEDS: oxyCODONE IR 5mg (immed. release) tablet PO PRN ×2 (10:31→20:05)
[2019-07-02] MEDS: traMADol 50MG tablet PO PRN (12:54)
--- NOTE | 2019-07-02 17:39 | NUR ---
NURSING PROGRESS NOTE Legal hold: 525 Client on involuntary status for DTS Report received from ROSALBA Wheatley with use of SBAR Why are they here: Pt admitted to [place] [facility] on 5150 for DTS. Pt was transferred from [facility] where he was in the ICU for several days due to overdose on 3000mg Wellbutrin. He also has self-inflicted lacerations with sutures to bilateral wrists with tendon and nerve damage. Pt states that this is his first suicidal attempt and was diagnosed with depression in 2016. Pt states feeling "out of it, and just very depressed and hopeless." Assessment What has happened this shift: Pt. asleep at start of shift. Pt. awake for medications and breakfast. Pt. took all medications and ate all meals with assistance from staff due to inability to grasp silverware. 1:1 done ate bedside. Pt. states, "I feel much more awake this morning. I think it might be the medication." Pt. denies SI/HI, A/V hallucinations. Pt. reports 05/03 depression. Pt. states, "I'm depressed because I know the depression will come back". Pt. seen out in milieu watching TV in community room. Pt. seen talking with staff and peers in hallway. Wounds cleansed and rinsed with NS, sutures removed and steri-strips applied and wound wrapped with kerlex and KAY bandage. Wound is well approximated with scant dry sero-sangeounous drainage. No S&S of infection Pt. received Oxy IR and Ultram x1 for bilateral arms pain with moderate effect. noted. S/I, H/I: Denies A/VH: Denies Sleep: Pt. did not nap during day shift. ADL's: Needs assistance with eating, brushing his teeth, due to bandaged arms Group attendance: N/A Were meds taken: Yes Any med S/E: None reported nor observed Mental Status Exam Appearance: Clean, wearing personal clothing Eye contact: Intermittent Behavior: less-isolative, watched a movie, cooperative, more social with staff and peers Speech: Clear, normal rate and rhythm Mood: Depressed and anxious Affect: Flat Thought process: Linear Thought Content: Depression Cognition: A/Ox4 Insight: Fair Judgment: Poor Interventions PRN's used: Oxy IR, Ultram x1 Therapeutic interventions: 1:1 assessment, established rapport, active listening, medication administration/education/monitoring, encouragement to participate in milieu, maintained q15m safety checks. Restraints/seclusion/emergency medication: None Justification of Continued Inpatient Treatment: Requires interruption of current crisis, medication adjustments, and a safe and supportive environment to prevent readmission.
[2019-07-02] MEDS: gabapentin 100mg capsule PO SCH ×2 (17:49→20:04)
[2019-07-02] MEDS ORDERED: lurasidone 20mg tablet PO SCH ×3 (18:00→21:00)
[2019-07-02] MEDS: LORazepam 1 MG tablet PO PRN (18:28)
[2019-07-02 19:44] VITALS: BP 161/91
[2019-07-02] MEDS: traZODone 50mg tablet PO SCH (20:03)
--- NOTE | 2019-07-03 04:55 | NUR ---
NURSING PROGRESS NOTE Legal hold: 5250 Client on involuntary status for DTS Report received from BARAK Maharaj with use of SBAR Why are they here: Pt admitted to [place] [facility] on 5150 for DTS. Pt was transferred from [facility] where he was in the ICU for several days due to overdose on 3000mg Wellbutrin. He also has self-inflicted lacerations with sutures to bilateral wrists with tendon and nerve damage. Pt states that this is his first suicidal attempt and was diagnosed with depression in 2016. Pt states feeling "out of it, and just very depressed and hopeless." Assessment What has happened this shift: Patient laying in bed awake at the beginning of shift. Briefly came out of his bedroom to request pain medication. PRN Oxycodone provided; compliant with all scheduled medication. Pleasant and cooperative with care. Patient denies SI, HI, A/VH this shift. Bandages to bilateral arms remain CDI; no s/s of infection. S/I, H/I: Denies A/VH: Denies Sleep: Refer to sleep assessment ADL's: Needs assistance with eating, brushing his teeth, d/t bilateral arm injury. Group attendance: N/A Were meds taken: Yes Any med S/E: None reported nor observed Mental Status Exam Appearance: Clean, wearing personal clothing Eye contact: Fair Behavior: Pleasant, cooperative, isolative to room Speech: Clear, normal rate and rhythm, minimal Mood: Depressed Affect: Constricted Thought process: Linear Thought Content: Wants to sleep Cognition: A/Ox4 Insight: Fair Judgment: Poor Interventions PRN's used: Oxy IR Therapeutic interventions: 1:1 assessment, established rapport, active listening, medication administration/education/monitoring, encouragement to participate in milieu, maintained q15m safety checks. Restraints/seclusion/emergency medication: None Justification of Continued Inpatient Treatment: Requires interruption of current crisis, medication adjustments, and a safe and supportive environment to prevent readmission.
[2019-07-03 08:00] VITALS: BP 122/79
[2019-07-03] MEDS: venlafaxine XR 37.5mg cap (Q24H) PO SCH (08:12)
[2019-07-03] MEDS: lithium carbonate 150mg capsule PO SCH ×2 (08:12→20:20)
[2019-07-03] MEDS: docusate sod 100mg capsule PO SCH ×2 (08:13→20:20)
[2019-07-03] MEDS: gabapentin 100mg capsule PO SCH ×4 (08:24→20:20)
[2019-07-03] MEDS: JUVEN Shake w/Arg/Glut/Ca2+Bmb (Juven 19.3gm) pkt 240ml PO SCH ×2 (08:30→17:34)
[2019-07-03] MEDS: traMADol 50MG tablet PO PRN ×2 (08:31→15:01)
[2019-07-03] MEDS: oxyCODONE IR 5mg (immed. release) tablet PO PRN ×2 (12:30→20:28)
--- NOTE | 2019-07-03 17:35 | NUR ---
NURSING PROGRESS NOTE Legal hold: 5250 Client on involuntary status for DTS Report received from ROSALBA Rose with use of SBAR Why are they here: Pt admitted to [place] [facility] on 5150 for DTS. Pt was transferred from [facility] where he was in the ICU for several days due to overdose on 3000mg Wellbutrin. He also has self-inflicted lacerations with sutures to bilateral wrists with tendon and nerve damage. Pt states that this is his first suicidal attempt and was diagnosed with depression in 2016. Pt states feeling "out of it, and just very depressed and hopeless." Assessment What has happened this shift: Patient was asleep at change of shift and up for breakfast. Patient has flat affect and looks depressed though patient denies depression and suicidal ideation. Patient denies hearing voices. Patient says he is feeling better today. Patient had physical therapy today. RN changed patient's dressings. No drainage Patient has good approximation. Steri-strips in place. Patient had some pain when RN changed dressings. Patient isolates most of the day but did spend some time in the T.V. room with a peer. Patient naps and spends time reading his Bible. S/I, H/I: Denies A/VH: Denies Sleep: Napped ADL's: Max assist Group attendance: N/A Were Meds taken: Yes Any med S/E: None Mental Status Exam Appearance: Wears his own clothing, showered today Eye contact: Direct Behavior: Calm, cooperative w/treatment Speech: Clear, normal rate and rhythm Mood: Appears depressed Affect: Flat Thought process: Linear Thought Content: feeling overwhelmed with his injuries Cognition: A/Ox4 Insight: Fair Judgment: Fair Interventions PRN's used: Oxy IR, Tramadol. Therapeutic interventions: Provided 1:1 assessment w/therapeutic communication and active listening, medication administration/education/monitoring, encouragement to participate in milieu, maintained q15m safety checks. Restraints/seclusion/emergency medication: None Justification of Continued Inpatient Treatment: Requires interruption of current crisis, medication adjustments, and a safe and supportive environment to prevent readmission.
[2019-07-03 20:00] VITALS: BP 121/88
[2019-07-03] MEDS: lurasidone 20mg tablet PO SCH (20:20)
[2019-07-03] MEDS: traZODone 50mg tablet PO SCH (20:22)
--- NOTE | 2019-07-04 04:33 | NUR ---
NURSING PROGRESS NOTE Legal hold: 525 Client on involuntary status for DTS Report received from BARAK Maharaj with use of SBAR Why are they here: Pt admitted to [place] [facility] on 5150 for DTS. Pt was transferred from [facility] where he was in the ICU for several days due to overdose on 3000mg Wellbutrin. He also has self-inflicted lacerations with sutures to bilateral wrists with tendon and nerve damage. Pt states that this is his first suicidal attempt and was diagnosed with depression in 2016. Pt states feeling "out of it, and just very depressed and hopeless." Assessment What has happened this shift: Patient on the unit and socializing with peers at the beginning of shift. Pleasant and cooperative with all care; compliant with all medication. PRN Oxy for pain with positive effect. Patient denies SI, HI, A/VH and does not appear internally preoccupied. Patient reports feeling, "much better," with a grin. 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 CBC,/DIFF, CMP, and [place] levels ordered for 07/07. S/I, H/I: Denies A/VH: Denies Sleep: Refer to sleep assessment ADL's: Needs assistance d/t bilateral arm injury. Group attendance: N/A Were meds taken: Yes Any med S/E: None reported nor observed Mental Status Exam Appearance: Neat, clean, wearing personal clothing Eye contact: Fair Behavior: Pleasant, cooperative, socializing Speech: Clear, normal rate and rhythm Mood: "much better" Affect: Constricted Thought process: Linear Thought Content: Increased ROM Cognition: A/Ox4 Insight: Fair Judgment: Poor Interventions PRN's used: Oxy IR Therapeutic interventions: 1:1 assessment, established rapport, active listening, medication administration/education/monitoring, encouragement to participate in milieu, maintained q15m safety checks. Restraints/seclusion/emergency medication: None Justification of Continued Inpatient Treatment: Requires interruption of current crisis, medication adjustments, and a safe and supportive environment to prevent readmission.
[2019-07-04] MEDS: JUVEN Shake w/Arg/Glut/Ca2+Bmb (Juven 19.3gm) pkt 240ml PO SCH ×2 (08:25→17:36)
[2019-07-04] MEDS: gabapentin 100mg capsule PO SCH ×4 (08:28→20:12)
[2019-07-04] MEDS: lithium carbonate 150mg capsule PO SCH ×2 (08:29→20:13)
[2019-07-04] MEDS: venlafaxine XR 37.5mg cap (Q24H) PO SCH (08:29)
[2019-07-04] MEDS: docusate sod 100mg capsule PO SCH ×2 (08:29→20:13)
[2019-07-04 08:46] VITALS: BP 131/66
[2019-07-04] MEDS: oxyCODONE IR 5mg (immed. release) tablet PO PRN ×2 (12:15→20:14)
[2019-07-04] MEDS: traMADol 50MG tablet PO PRN (16:26)
--- NOTE | 2019-07-04 17:47 | NUR ---
NURSING PROGRESS NOTE Legal hold: 5250 Client on involuntary status for DTS Report received from ROSALBA Collins with use of SBAR Why are they here: Pt admitted to [place] for [facility] on 5150 for DTS. Pt was transferred from [facility] where he was in the ICU for several days due to overdose on 3000mg Wellbutrin. He also has self-inflicted lacerations with sutures to bilateral wrists with tendon and nerve damage. Pt states that this is his first suicidal attempt and was diagnosed with depression in 2016. Pt states feeling "out of it, and just very depressed and hopeless." Assessment What has happened this shift: Pt. asleep at start of shift. Pt. took medications and ate all meals. 1:1 done at bedside. Pt. reports feeling unsure about the future. Pt. reports wanting to get and have a family but feels lost with moving forward regarding school and work. Pt. 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 Pt. discussed how his family is very competitive when it comes to sports and school and that his father and siblings are successful. Pt. states, I hope things work out in the future for me. Pt. appears depressed but affect is brightening. Pt. given Oxy IR x1 and Ultram x1 with minimal effect. S/I, H/I: Denies A/VH: Denies Sleep: Napped ADL's: Max assist Group attendance: N/A Were Meds taken: Yes Any med S/E: None Mental Status Exam Appearance: Wears his own clothing, disheveled, clean. Eye contact: Direct Behavior: Calm, cooperative w/treatment, withdrawn. Speech: Clear, normal rate and rhythm Mood: depressed Affect: Flat Thought process: Linear Thought Content: Overwhelmed regarding future. Cognition: A/Ox4 Insight: Fair Judgment: Fair Interventions PRN's used: Oxy IR, Tramadol. Therapeutic interventions: Provided 1:1 assessment w/therapeutic communication and active listening, medication administration/education/monitoring, encouragement to participate in milieu, maintained q15m safety checks. Restraints/seclusion/emergency medication: None Justification of Continued Inpatient Treatment: Requires interruption of current crisis, medication adjustments, and a safe and supportive environment to prevent readmission.
[2019-07-04 20:00] VITALS: BP 132/80
[2019-07-04] MEDS: lurasidone 20mg tablet PO SCH (20:12)
[2019-07-04] MEDS: traZODone 50mg tablet PO SCH (20:14)
--- NOTE | 2019-07-04 23:50 | NUR ---
NURSING PROGRESS NOTE Legal hold: 5250 Client on involuntary status for DTS Report received from ROSALBA Maharaj with use of SBAR Why are they here: Pt admitted to [place] [facility] on 5150 for DTS. Pt was transferred from [facility] where he was in the ICU for several days due to overdose on 3000mg Wellbutrin. He also has self-inflicted lacerations with sutures to bilateral wrists with tendon and nerve damage. Pt states that this is his first suicidal attempt and was diagnosed with depression in 2016. Pt states feeling "out of it, and just very depressed and hopeless." Assessment What has happened this shift: Pt was awake sitting in his room at the start of the shift. He was reading and had a gimmes of pain. Asked if he was hurting and he said a little and asked for his pain medication. It was to early for his medication so he stated that I'll walk till it's time for meds. He paced the sutton talking with peers till med pass. Prn oxy given and was helpful and Pt was able to go to sleep. S/I, H/I: Denies A/VH: Denies Sleep: Napped ADL's: Max assist Group attendance: N/A Were Meds taken: Yes Any med S/E: None Mental Status Exam Appearance: Wears his own clothing, disheveled, clean. Eye contact: Direct Behavior: Calm, cooperative w/treatment, withdrawn. Speech: Clear, normal rate and rhythm Mood: depressed Affect: Flat Thought process: Linear Thought Content: Overwhelmed regarding future. Cognition: A/Ox4 Insight: Fair Judgment: Fair Interventions PRN's used: Oxy IR, Therapeutic interventions: Provided 1:1 assessment w/therapeutic communication and active listening, medication administration/education/monitoring, encouragement to participate in milieu, maintained q15m safety checks. Restraints/seclusion/emergency medication: None Justification of Continued Inpatient Treatment: Requires interruption of current crisis, medication adjustments, and a safe and supportive environment to prevent readmission.
[2019-07-05 08:00] VITALS: BP 112/61
[2019-07-05] MEDS: JUVEN Shake w/Arg/Glut/Ca2+Bmb (Juven 19.3gm) pkt 240ml PO SCH ×2 (08:00→18:23)
[2019-07-05] MEDS: docusate sod 100mg capsule PO SCH ×2 (08:09→19:35)
[2019-07-05] MEDS: venlafaxine XR 37.5mg cap (Q24H) PO SCH (08:10)
[2019-07-05] MEDS: lithium carbonate 150mg capsule PO SCH ×2 (08:10→19:35)
[2019-07-05] MEDS: gabapentin 100mg capsule PO SCH ×4 (08:12→19:33)
[2019-07-05] MEDS: oxyCODONE IR 5mg (immed. release) tablet PO PRN ×2 (11:01→19:35)
--- NOTE | 2019-07-05 11:01 | NUR ---
DISCHARGE PLANNING Called [facility] to inquire about referral process. Was informed that Pascual does not meet criteria for acute in-patient rehab because he is able to walk. Pascual can access out-patient physical therapy after discharge. Called Pascual's mom, Joycelyn ([phone]# [phone]) to apprise her that Pascual is NOT able to access in-patient rehab. She seemed rather fearful of Pascual returning home when the 5250 expires. Explained 5270 process. Apprised Pascual as well and he seemed disappointed yet accepting of this. TERRENCE Resendiz
[2019-07-05] MEDS: magnesium hydroxide 30ml (MOM) UD suspension PO PRN (13:00)
--- NOTE | 2019-07-05 18:02 | NUR ---
NURSING PROGRESS NOTE Legal hold: 5250 Client on involuntary status for DTS Report received from ROSALBA Iglesias with use of SBAR Why are they here: Pt admitted to [place] for [facility] on 5150 for DTS. Pt was transferred from [facility] where he was in the ICU for several days due to overdose on 3000mg Wellbutrin. He also has self-inflicted lacerations with sutures to bilateral wrists with tendon and nerve damage. Pt states that this is his first suicidal attempt and was diagnosed with depression in 2016. Pt states feeling "out of it, and just very depressed and hopeless." Assessment What has happened this shift: Pt. asleep at start of shift. Pt cooperative with assessment and compliant with medication administration. Pt states, Feel alright now. He denied depression, SI, and A/V H. Pt treats others respectfully and considerately. He indicated that last night he did not sleep well and he woke up early. Pt talked about his goal to go to college, but feels he is not successful in school. Therapeutic listening offered. He requested to be allowed to sleep after breakfast. Pt reports 7/10 throbbing, sharp pain in his L hand partially relieved by Oxycontin. He indicated he had not had a BM for three days and Milk of Mag administered at lunch. Physical therapy worked with the patient in the afternoon. Dressing changes performed on bilateral lower arm wounds. Wounds well approximated, healing, no drainage or redness noted. Pt tolerated wound care well. Pt encouraged to elevate lower arms at night, additional pillows provided to pt. S/I, H/I: Denies A/VH: Denies Sleep: Napped ADL's: Max assist Group attendance: N/A Were Meds taken: Yes Any med S/E: None reported or observed Mental Status Exam Appearance: Neat and clean. Eye contact: Good Behavior: Calm, cooperative w/treatment, withdrawn. Speech: Normal rate and rhythm Mood: depressed Affect: Constricted Thought process: Linear Thought Content: Concerned about how long it will take for his arms to heal. Cognition: A/Ox4 Insight: Fair Judgment: Fair Interventions PRN's used: Oxy IR Therapeutic interventions: Provided 1:1 assessment w/therapeutic communication and active listening, medication administration/education/monitoring, encouragement to participate in milieu, maintained q15m safety checks. Restraints/seclusion/emergency medication: None Justification of Continued Inpatient Treatment: Requires interruption of current crisis, medication adjustments, and a safe and supportive environment to prevent readmission.
[2019-07-05] MEDS: traZODone 50mg tablet PO SCH (19:34)
[2019-07-05] MEDS: lurasidone 20mg tablet PO SCH (19:35)
[2019-07-05 20:24] VITALS: BP 189/90
--- NOTE | 2019-07-06 00:11 | NUR ---
NURSING PROGRESS NOTE Legal hold: 5250 Client on involuntary status for DTS Report received from ROSALBA Maharaj with use of SBAR Why are they here: Pt admitted to [place] [facility] on 5150 for DTS. Pt was transferred from [facility] where he was in the ICU for several days due to overdose on 3000mg Wellbutrin. He also has self-inflicted lacerations with sutures to bilateral wrists with tendon and nerve damage. Pt states that this is his first suicidal attempt and was diagnosed with depression in 2016. Pt states feeling "out of it, and just very depressed and hopeless." Assessment What has happened this shift: Pt. up and in his room reading at start of shift. Pt stated that he had a good day but was starting to hurt. Asked for his prn Oxy. Pt states that it only helps for about 4 hrs then starts to hurt again but realizes that he can not have it that often. He states he reads or walks the sutton and talks to peers to keep his mind off the pain. He states that he is thankful for the help he gets here and looking toward getting his life back together. S/I, H/I: Denies A/VH: Denies Sleep: Napped ADL's: Max assist Group attendance: N/A Were Meds taken: Yes Any med S/E: None reported or observed Mental Status Exam Appearance: Neat and clean. Eye contact: Good Behavior: Calm, cooperative w/treatment, withdrawn. Speech: Normal rate and rhythm Mood: depressed Affect: Constricted Thought process: Linear Thought Content: Concerned about how long it will take for his arms to heal. Cognition: A/Ox4 Insight: Fair Judgment: Fair Interventions PRN's used: Oxy IR Therapeutic interventions: Provided 1:1 assessment w/therapeutic communication and active listening, medication administration/education/monitoring, encouragement to participate in milieu, maintained q15m safety checks. Restraints/seclusion/emergency medication: None Justification of Continued Inpatient Treatment: Requires interruption of current crisis, medication adjustments, and a safe and supportive environment to prevent readmission.
[2019-07-06] MEDS: JUVEN Shake w/Arg/Glut/Ca2+Bmb (Juven 19.3gm) pkt 240ml PO SCH ×2 (07:30→18:02)
[2019-07-06 08:00] VITALS: BP 124/69
[2019-07-06] MEDS: docusate sod 100mg capsule PO SCH ×2 (08:43→19:26)
[2019-07-06] MEDS: venlafaxine XR 37.5mg cap (Q24H) PO SCH (08:43)
[2019-07-06] MEDS: lithium carbonate 150mg capsule PO SCH ×2 (08:43→19:26)
[2019-07-06] MEDS: gabapentin 100mg capsule PO SCH ×4 (08:44→20:18)
[2019-07-06] MEDS: oxyCODONE IR 5mg (immed. release) tablet PO PRN ×2 (08:45→19:26)
[2019-07-06] MEDS: traMADol 50MG tablet PO PRN (11:54)
--- NOTE | 2019-07-06 12:58 | NUR ---
Nursing Progress Note: Legal hold: 5250 Client on involuntary status for DTS Report received from nurse with use of SBAR: ROSALBA Mahoney Why are they here: Pt admitted to [place] [facility] on 5150 for DTS. Pt was transferred from [facility] where he was in the ICU for several days due to overdose on 3000mg Wellbutrin. He also has self-inflicted lacerations with sutures to bilateral wrists with tendon and nerve damage. Pt states that this is his first suicidal attempt and was diagnosed with depression in 2016. Pt states feeling "out of it, and just very depressed and hopeless." Assessment What has happened this shift: Received pt. in bed sleeping at the beginning of the shift, awoke to administer AM medications. 1:1 completed at bedside, pt. denies S/I, however reports ongoing depression, states, "I'll have ups and downs throughout the day." Pt. presents with a constricted affect and hopelessness. When questioned by this service writer regarding his future plans, pt. reports he has a great relationship with his mother and she is very supportive, however she works during the day and he is aware that he will need more help at home with ADLs than she would be able to give him. Pt. states, "I was going to go to rehab, but then that fell through." Pt. admits that he is having decreased pain and he feels his mobility is improving, physical therapy received this shift. Pt. reports that he does feel that his medications are helping with his depression, but is aware that his medications continue to be adjusted, states, "I just don't want to leave too soon and relapse." Wound care completed today to bilateral arms by wound treatment nurse. Pt. up interacting minimally with others throughout the shift. S/I, H/I: Denies A/VH: Denies, does not appear internally preoccupied Sleep: Pt. reports he slept well, sleep hours are 7.5 ADL's: Pt. continues to be non weight bearing to bilateral wrists and splints will remain in place for 6-8 weeks. Pt. requires full assistance with all ADLs requiring use of bilateral arms Group attendance: N/A Were meds taken: Yes Any med S/E: None Mental Status Exam Appearance: Neat and appropriately dressed Eye contact: Good Behavior: Cooperative, withdrawn, and guarded Speech: Soft and WNL Mood: Depressed and withdrawn Affect: Constricted Thought process: Poverty of thought Thought Content: Continued depression and chronic pain Cognition: A&O X4 Insight: Fair Judgment: Fair Interventions PRN's used: Oxycodone and Ultram Therapeutic interventions: Introduced self and established rapport, ensured contract for safety, maintained a safe and therapeutic environment, monitored pain and need for intervention, ensured daily dressing change to bilateral arms completed, provided assistance with ADLs r/t non-weight bearing order, and maintained Q 15min safety checks. Restraints/seclusion/emergency medication: N/A Justification of Continued Inpatient Treatment: Per Dr. He, due to ongoing s/s, pt. remains a high risk for discharge.
--- NOTE | 2019-07-06 18:21 | NUR ---
Nursing Note: Per pharmacy, pt's Rexulti scheduled for HS tonight is unavailable and they would like to substitute with Abilify. This television writer spoke to Dr. He via telephone, and he does not wish to substitute with Abilify. Per Dr. He, hold medication tonight and he will address tomorrow, will endorse to NOC shift.
--- NOTE | 2019-07-06 18:59 | NUR ---
Spoke with pharmacy about Dr Morrow desire to use rexulti, ordered d/c'd until he can speak with pharmacy about obtaining.
[2019-07-06 19:27] VITALS: BP 152/86
[2019-07-06] MEDS: traZODone 50mg tablet PO SCH (20:18)
[2019-07-06] MEDS: lurasidone 20mg tablet PO SCH (20:23)
--- NOTE | 2019-07-06 22:23 | NUR ---
Nursing Progress Note: Legal hold: 525 Client on involuntary status for DTS Report received from nurse with use of SBAR: ROSALBA Maharaj Why are they here: Pt admitted to [place] [facility] on 5150 for DTS. Pt was transferred from [facility] where he was in the ICU for several days due to overdose on 3000mg Wellbutrin. He also has self-inflicted lacerations with sutures to bilateral wrists with tendon and nerve damage. Pt states that this is his first suicidal attempt and was diagnosed with depression in 2016. Pt states feeling "out of it, and just very depressed and hopeless." Assessment What has happened this shift: Pt was sitting in his room reading his bible at change of shift. Pt requests pain meds as soon as I entered his room then apologized for asking me for meds before talking about anything else. Pt states he just wants to take his meds and go to sleep because it helps w/his pain, He states his arm pain is improving and he feels he is healing. He states he understands his protein shakes are helping him to heal. Pt reports he still is feeling depressed at times during the day. S/I, H/I: Denies A/VH: Denies, did not appear to be responding to internal stimuli Sleep: see sleep hours ADL's: Pt. continues to be non weight bearing to bilateral wrists and splints will remain in place for 6-8 weeks. Pt. requires full assistance with all ADLs requiring use of bilateral arms Group attendance: N/A Were meds taken: Yes Any med S/E: None Mental Status Exam Appearance: Neat and appropriately dressed Eye contact: Good Behavior: Cooperative, withdrawn, and guarded Speech: Soft and WNL Mood: Depressed and withdrawn Affect: Constricted Thought process: Poverty of thought Thought Content: talking about pain in his arms Cognition: A&O X4 Insight: Fair Judgment: Fair Interventions PRN's used: Oxycodone Therapeutic interventions: Introduced self and established rapport, ensured contract for safety, maintained a safe and therapeutic environment, monitored pain and need for intervention, ensured daily dressing change to bilateral arms completed, provided assistance with ADLs r/t non-weight bearing order, and maintained Q 15min safety checks. Restraints/seclusion/emergency medication: N/A Justification of Continued Inpatient Treatment: Per Dr. He, due to ongoing s/s, pt. remains a high risk for discharge.
[2019-07-07] MEDS: JUVEN Shake w/Arg/Glut/Ca2+Bmb (Juven 19.3gm) pkt 240ml PO SCH ×2 (07:30→18:01)
[2019-07-07] MEDS: venlafaxine XR 37.5mg cap (Q24H) PO SCH (08:10)
[2019-07-07] MEDS: docusate sod 100mg capsule PO SCH ×2 (08:10→20:11)
[2019-07-07] MEDS: lithium carbonate 150mg capsule PO SCH ×2 (08:11→20:11)
[2019-07-07] MEDS: gabapentin 100mg capsule PO SCH ×3 (08:11→18:02)
[2019-07-07 08:13] VITALS: BP 117/61
[2019-07-07] MEDS: oxyCODONE IR 5mg (immed. release) tablet PO PRN (12:29)
--- NOTE | 2019-07-07 15:33 | NUR ---
Nursing Progress Note: Legal hold: 5250 Client on involuntary status for DTS Report received from RN with use of SBAR Why are they here: Pt admitted to [place] [facility] on 5150 for DTS. Pt was transferred from [facility] where he was in the ICU for several days due to overdose on 3000mg Wellbutrin. He also has self-inflicted lacerations with sutures to bilateral wrists with tendon and nerve damage. Pt states that this is his first suicidal attempt and was diagnosed with depression in 2016. Pt states feeling "out of it, and just very depressed and hopeless." Assessment What has happened this shift: Received pt. in bed sleeping w/o distress at the beginning of the shift. He awoke for vitals and was cooperative. Pt woke again for breakfast and took AM meds w/o issue. Pt needs assistance to eat meals and is very appreciative. Pt tolerated and engaged in assessments willingly. Pt appears depressed and affect is constricted. He denies SI but uncertain about discharge as environment will be the same. We discussed his plans for therapy and other supports to change himself and how he reacts to others. Pt disappointed that rehab fell thru and fears falling back deeper into a depression if he leaves too soon. He believes meds are helping and reports he will stay on them after discharge. Pt interacted with other Pts moderately and was very patient with the intrusiveness of other Pts. Pt showered in afternoon and wound care provided to bilateral wrists. Pt received oxycocdone after c/o pain to wrists with good effect. S/I, H/I: Denies A/VH: Denies Sleep: Pt. napped in AM ADL's: Pt. continues to be non weight bearing to bilateral wrists and splints will remain in place for 6-8 weeks. Pt. requires full assistance with all ADLs requiring use of bilateral arms Group attendance: N/A Were meds taken: Yes Any med S/E: None Mental Status Exam Appearance: Neat and appropriately dressed Eye contact: Good Behavior: Cooperative, withdrawn, and isolative Speech: Soft and WNL Mood: Depressed and withdrawn Affect: Constricted Thought process: Poverty of thought Thought Content: Depression, pain, fear of returning to same environment Cognition: A&O X4 Insight: Fair Judgment: Fair Interventions PRN's used: Oxycodone Therapeutic interventions: Introduced self and established rapport, ensured contract for safety, maintained a safe and therapeutic environment, monitored pain and need for intervention, ensured daily dressing change to bilateral arms completed, provided assistance with ADLs r/t non-weight bearing order, and maintained Q 15min safety checks. Restraints/seclusion/emergency medication: N/A Justification of Continued Inpatient Treatment: Per Dr. He, due to ongoing s/s, pt. remains a high risk for discharge.
[2019-07-07 19:32] VITALS: BP 133/84
[2019-07-07] MEDS: traZODone 50mg tablet PO SCH (20:11)
[2019-07-07] MEDS: lurasidone 20mg tablet PO SCH (20:11)
[2019-07-07] MEDS: gabapentin 400mg capsule PO SCH (20:15)
[2019-07-07 20:51] LABS: ALBUMIN 4.1 G/DL (3.4-5.0); ANION GAP 6 (8-16); BLOOD UREA NITROGEN 19 MG/DL (7-18); BUN/CREATININE RATIO 16.1 (5.4-32.0); CALCIUM 9.5 MG/DL (8.5-10.1); CHLORIDE 104 MMOL/L (99-107); CREATININE 1.18 MG/DL (0.60-1.10); GLUCOSE 95 MG/DL (70-104); SODIUM 141 MMOL/L (135-145); TOTAL CARBON DIOXIDE 31.1 MMOL/L (24-32); eGFR 77 ML/MIN
--- NOTE | 2019-07-07 22:33 | NUR ---
Nursing Progress Note: Legal hold: 5250 Client on involuntary status for DTS Report received from RN with use of SBAR Why are they here: Pt admitted to [place] [facility] on 5150 for DTS. Pt was transferred from [facility] where he was in the ICU for several days due to overdose on 3000mg Wellbutrin. He also has self-inflicted lacerations with sutures to bilateral wrists with tendon and nerve damage. Pt states that this is his first suicidal attempt and was diagnosed with depression in 2016. Pt states feeling "out of it, and just very depressed and hopeless." Assessment What has happened this shift: Pt was in room at change of shift reading. pt requests help with ADLs. Splint was not in place at change of shift and pt states he was told splint is to be removed periodically. Pts splint on left arm was put back in place using kathryn bandage. Dressing is CDI and pt reports his pain has been improving. He did not request prn for pain this evening. Pt continues to have depression in the late afternoon but he denies s/i and denies having any plan to harm himself. S/I, H/I: Denies A/VH: Denies Sleep: Pt. napped in AM ADL's: Pt. continues to be non weight bearing to bilateral wrists and splints will remain in place for 6-8 weeks. Pt. requires full assistance with all ADLs requiring use of bilateral arms Group attendance: N/A Were meds taken: Yes Any med S/E: None Mental Status Exam Appearance: Neat and appropriately dressed Eye contact: Good Behavior: Cooperative, withdrawn, and isolative Speech: Soft and WNL Mood: Depressed and withdrawn Affect: Constricted Thought process: Poverty of thought Thought Content: Depression, pain, fear of returning to same environment Cognition: A&O X4 Insight: Fair Judgment: Fair Interventions PRN's used: none Therapeutic interventions: Introduced self and established rapport, ensured contract for safety, maintained a safe and therapeutic environment, monitored pain and need for intervention, ensured daily dressing change to bilateral arms completed, provided assistance with ADLs r/t non-weight bearing order, and maintained Q 15min safety checks. Restraints/seclusion/emergency medication: N/A Justification of Continued Inpatient Treatment: Per Dr. He, due to ongoing s/s, pt. remains a high risk for discharge.
[2019-07-08 06:59] LABS: BASOPHILS # (AUTO) 0.1 X10'3 (0-0.2); BASOPHILS % (AUTO) 1.3 % (0-1); EOSINOPHILS # (AUTO) 0.1 X10'3 (0-0.9); HEMATOCRIT 38.4 % (42.0-52.0); HEMOGLOBIN 13.3 g/dl (14.0-17.9); LYMPHOCYTES # (AUTO) 1.9 X10'3 (1.1-4.8); LYMPHOCYTES % (AUTO) 42.8 % (21-51); MEAN CORPUSCULAR HEMOGLOBIN 30.4 PG (27.0-31.0); MEAN CORPUSCULAR HGB CONC 34.6 g/dL (33.0-36.5); MEAN PLATELET VOLUME 7.8 FL (7.4-10.4); MONOCYTES # (AUTO) 0.4 X10'3 (0-0.9); MONOCYTES % (AUTO) 9.8 % (2-12); NEUTROPHILS % (AUTO) 44.1 % (42-75); PLATELET COUNT 154 X10'3 (140-440); RED BLOOD COUNT 4.36 X10'6 (4.70-6.10); RED CELL DISTRIBUTION WIDTH 12.4 % (11.5-14.5); WHITE BLOOD COUNT 4.5 X10'3 (4.5-11.0)
[2019-07-08 07:11] LABS: GLUCOSE 99 MG/DL (70-104)
[2019-07-08 07:12] LABS: ALANINE AMINOTRANSFERASE 23 U/L (12-78); ALBUMIN 3.7 G/DL (3.4-5.0); ALBUMIN/GLOBULIN RATIO 1.3 (1.1-1.5); ALKALINE PHOSPHATASE 68 IU/L (46-116); ANION GAP 2 (8-16); ASPARTATE AMINO TRANSFERASE 15 U/L (10-37); BILIRUBIN,TOTAL 0.5 MG/DL (0.1-1.0); BLOOD UREA NITROGEN 15 MG/DL (7-18); BUN/CREATININE RATIO 13.8 (5.4-32.0); CALCIUM 9.3 MG/DL (8.5-10.1); CHLORIDE 108 MMOL/L (99-107); CREATININE 1.09 MG/DL (0.60-1.10); POTASSIUM 4.2 MMOL/L (3.5-5.1); SODIUM 142 MMOL/L (135-145); TOTAL CARBON DIOXIDE 32.3 MMOL/L (24-32); TOTAL PROTEIN 6.6 G/DL (6.4-8.2); eGFR 85 ML/MIN
[2019-07-08] MEDS: JUVEN Shake w/Arg/Glut/Ca2+Bmb (Juven 19.3gm) pkt 240ml PO SCH ×2 (07:30→17:30)
[2019-07-08 07:54] VITALS: BP 111/66
[2019-07-08] MEDS: venlafaxine XR 37.5mg cap (Q24H) PO SCH (08:35)
[2019-07-08] MEDS: lithium carbonate 150mg capsule PO SCH ×2 (08:35→20:17)
[2019-07-08] MEDS: gabapentin 400mg capsule PO SCH ×3 (08:35→20:17)
[2019-07-08] MEDS: docusate sod 100mg capsule PO SCH ×2 (08:35→20:17)
[2019-07-08] MEDS: oxyCODONE IR 5mg (immed. release) tablet PO PRN ×2 (08:39→19:09)
--- NOTE | 2019-07-08 12:05 | NUR ---
1:1 with Pascual. He reported he did not sleep well last night and attributed this partly due to his roommate snoring loudly. Pascual reported he continues to feel depressed. He does seem brighter and has been observed to be socializing more with peers. He reported he had thoughts of suicide this morning. He noted he envisioned himself stabbing himself with a kitchen knife. He reported he had not had SI for the 2 days prior. Validated and listened to his concerns. Discussed coping skills and plans for when he discharges. He talked about his living situation and how that contributes to his depressed mood. Reminded him that he has his phone counseling session with his therapist, [facility], today at 4 PM. TERRENCE Resendiz
--- NOTE | 2019-07-08 17:05 | NUR ---
Nursing Progress Note: Legal hold: 5250 Client on involuntary status for DTS Report received from RN with use of SBAR: ROSALBA Mahoney Why are they here: Pt admitted to [place] on 5150 for DTS. Pt was transferred from [facility] where he was in the ICU for several days due to overdose on 3000mg Wellbutrin. He also has self-inflicted lacerations with sutures to bilateral wrists with tendon and nerve damage. Pt states that this is his first suicidal attempt and was diagnosed with depression in 2016. Pt states feeling "out of it, and just very depressed and hopeless." Assessment What has happened this shift: Pt was in room at change of shift reading. pt requests help with ADLs. Left wrist kathryn bandage replaced after it was removed by MD for assessment. Dressing is CDI and pt reports his pain has been improving. Oxycodone given this AM for pain to wrists. Pt continues to have depression in the late afternoon but he denies s/i and denies having any plan to harm himself. S/I, H/I: Denies A/VH: Denies Sleep: Pt slept all night ADL's: Pt. continues to be non weight bearing to bilateral wrists and splints will remain in place for 6-8 weeks. Pt. requires full assistance with all ADLs requiring use of bilateral arms Group attendance: yes Were meds taken: Yes Any med S/E: None Mental Status Exam Appearance: Neat and appropriately dressed Eye contact: Good Behavior: Cooperative, withdrawn, and isolative Speech: Soft and WNL Mood: Depressed and withdrawn Affect: Constricted Thought process: Poverty of thought Thought Content: Depression, pain, fear of returning to same environment Cognition: A&O X4 Insight: Fair Judgment: Fair Interventions PRN's used: none Therapeutic interventions: Introduced self and established rapport, ensured contract for safety, maintained a safe and therapeutic environment, monitored pain and need for intervention, ensured daily dressing change to bilateral arms completed, provided assistance with ADLs r/t non-weight bearing order, and maintained Q 15min safety checks. Restraints/seclusion/emergency medication: N/A Justification of Continued Inpatient Treatment: Per Dr. He, due to ongoing s/s, pt. remains a high risk for discharge.
[2019-07-08 19:00] VITALS: BP 170/115
[2019-07-08] MEDS: lurasidone 20mg tablet PO SCH (20:17)
[2019-07-08] MEDS: traZODone 50mg tablet PO SCH (20:17)
[2019-07-08 20:30] VITALS: BP 129/69
--- NOTE | 2019-07-08 22:36 | NUR ---
Nursing Progress Note: Legal hold: 525 Client on involuntary status for DTS Report received from RN with use of SBAR: ROSALBA Mixon Why are they here: Pt admitted to [facility] on 5150 for DTS. Pt was transferred from [facility] where he was in the ICU for several days due to overdose on 3000mg Wellbutrin. He also has self-inflicted lacerations with sutures to bilateral wrists with tendon and nerve damage. Pt states that this is his first suicidal attempt and was diagnosed with depression in 2016. Pt states feeling "out of it, and just very depressed and hopeless." Assessment What has happened this shift: Pt was sitting in his room talking on the phone at change of shift. He requests prn for 9/10 pain in his wrists. He was given prn w/good effect. Pt is socializing more with peers and smiling and joking with staff. Spent more time out of his room talking with other patients but stays near his room and spends time reading when he is not outside his door talking. Pt endorses depression but states "it isnt as bad as it has been." S/I, H/I: Denies A/VH: Denies Sleep: Pt sleeps well at night ADL's: Pt. continues to be non weight bearing to bilateral wrists and splints will remain in place for 6-8 weeks. Pt. requires full assistance with all ADLs requiring use of bilateral arms Group attendance: yes Were meds taken: Yes Any med S/E: None Mental Status Exam Appearance: Neat and appropriately dressed Eye contact: Good Behavior: Cooperative, withdrawn, and isolative Speech: Soft and WNL Mood: Depressed and withdrawn Affect: Constricted Thought process: Poverty of thought Thought Content: Depression, pain Cognition: A&O X4 Insight: Fair Judgment: Fair Interventions PRN's used: none Therapeutic interventions: Introduced self and established rapport, ensured contract for safety, maintained a safe and therapeutic environment, monitored pain and need for intervention, ensured daily dressing change to bilateral arms completed, provided assistance with ADLs r/t non-weight bearing order, and maintained Q 15min safety checks. Restraints/seclusion/emergency medication: N/A Justification of Continued Inpatient Treatment: Per Dr. He, due to ongoing s/s, pt. remains a high risk for discharge.
[2019-07-09 08:00] VITALS: BP 102/58
[2019-07-09] MEDS: venlafaxine XR 37.5mg cap (Q24H) PO SCH (08:02)
[2019-07-09] MEDS: lithium carbonate 150mg capsule PO SCH ×2 (08:02→20:29)
[2019-07-09] MEDS: docusate sod 100mg capsule PO SCH ×2 (08:03→20:29)
[2019-07-09] MEDS: gabapentin 400mg capsule PO SCH ×3 (08:03→20:29)
[2019-07-09] MEDS: JUVEN Shake w/Arg/Glut/Ca2+Bmb (Juven 19.3gm) pkt 240ml PO SCH ×2 (08:08→17:44)
[2019-07-09] MEDS: oxyCODONE IR 5mg (immed. release) tablet PO PRN ×2 (08:32→19:12)
--- NOTE | 2019-07-09 17:43 | NUR ---
Nursing Progress Note: Legal hold: 5250 Client on involuntary status for DTS Report received from RN with use of SBAR: ROSALBA Bobo Why are they here: Pt admitted to [facility] on 5150 for DTS. Pt was transferred from [facility] where he was in the ICU for several days due to overdose on 3000mg Wellbutrin. He also has self-inflicted lacerations with sutures to bilateral wrists with tendon and nerve damage. Pt states that this is his first suicidal attempt and was diagnosed with depression in 2016. Pt states feeling "out of it, and just very depressed and hopeless." Assessment What has happened this shift: Pt. asleep at start of shift. Pt. took all medications and ate all meals in the community room. 1:1 done at bedside. Pt. denies SI/HI, A/V hallucinations. Pt. reports feeling depressed and anxious about the future, but is difficult for him to pinpoint what exactly about the future is bothering him. Pt. reports talking with therapist yesterday and being able to express the despair he feels. RN discussed mindfulness with the patient. Pt seen pacing halls and talking with peer. Pt. seen by PT today and encouraged to do fine motor exercises over the weekend (Equipment is in patient's locker). RN changed pt.'s dressings which were CDI. Wounds were cleaned and dressed per wound nurse orders. No S&S of infection noted. S/I, H/I: Denies A/VH: Denies Sleep: Pt. napped for 1 hr on day shift. ADL's: Pt. continues to be non weight bearing to bilateral wrists and splints will remain in place for 6-8 weeks. Pt. requires full assistance with all ADLs requiring use of bilateral arms Group attendance: yes Were meds taken: Yes Any med S/E: None Mental Status Exam Appearance: disheveled hair, but appropriately dressed in street clothes. Eye contact: Good Behavior: Cooperative, withdrawn, and isolative Speech: Soft and WNL Mood: Depressed and withdrawn Affect: Constricted Thought process: Catastrophizes. Thought Content: Depression, pain, fear of the future. Cognition: A&O X4 Insight: Fair Judgment: Fair Interventions PRN's used: Oxy IR x1 Therapeutic interventions: Introduced self and established rapport, ensured contract for safety, maintained a safe and therapeutic environment, monitored pain and need for intervention, ensured daily dressing change to bilateral arms completed, provided assistance with ADLs r/t non-weight bearing order, and maintained Q 15min safety checks. Restraints/seclusion/emergency medication: N/A Justification of Continued Inpatient Treatment: Per Dr. He, due to ongoing s/s, pt. remains a high risk for discharge.
[2019-07-09 19:00] VITALS: BP 119/76
[2019-07-09] MEDS: traZODone 50mg tablet PO SCH (20:29)
[2019-07-09] MEDS: lurasidone 20mg tablet PO SCH (20:29)
--- NOTE | 2019-07-10 00:42 | NUR ---
Nursing Progress Note: Legal hold: 525 Client on involuntary status for DTS Report received from RN with use of SBAR: ROSALBA Mixon Why are they here: Pt admitted to [facility] on 5150 for DTS. Pt was transferred from [facility] where he was in the ICU for several days due to overdose on 3000mg Wellbutrin. He also has self-inflicted lacerations with sutures to bilateral wrists with tendon and nerve damage. Pt states that this is his first suicidal attempt and was diagnosed with depression in 2016. Pt states feeling "out of it, and just very depressed and hopeless." Assessment What has happened this shift: Pt was in his room during shift change. Pt states that he feels better but still feeling pretty nervous about going home and is hoping to stay here a couple more days. Pt was cooperative during 1:1 physical assessment and took all his meds without any issues. He states that he feel anxious sometimes. Sometimes when he wakes up and gets really bad thoughts Evil thoughts Asked him if they were thoughts about hurting himself and states that he does gets those too but not right now. Pt states that he is grateful that his parents are supportive and thats why he doesnt understand why he came up to take the actions that he took. He states that he thinks that being more independent and having his own place would be a more ideal situation but he acknowledges that this is not a realistic goal for him as he doest have a job and means to support himself. He states that he talked on phone with them for about 45 minutes and that made him feel good. Pt retired to bed a short while after medication pass. S/I, H/I: Denies, does have passive intrusive thoughts about hurting himself. A/VH: Denies Sleep: Currently sleeping, see sleep assessment for total hours ADL's: Pt. continues to be non weight bearing to bilateral wrists and splints will remain in place for 6-8 weeks. Pt. 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 Still appears depressed and hopeless Affect: Blunted Thought process: Poverty of thought Thought Content: Depression, pain, not feeling ready to go home yet, getting more help, family. Cognition: A&O X4 Insight: Fair Judgment: Fair Interventions PRN's used: none Therapeutic interventions: Introduced self and established rapport, ensured contract for safety, maintained a safe and therapeutic environment, monitored pain and need for intervention, ensured daily dressing change to bilateral arms completed, provided assistance with ADLs r/t non-weight bearing order, and maintained Q 15min safety checks. Restraints/seclusion/emergency medication: N/A Justification of Continued Inpatient Treatment: Per Dr. He, due to ongoing s/s, pt. remains a high risk for discharge.
[2019-07-10] MEDS: JUVEN Shake w/Arg/Glut/Ca2+Bmb (Juven 19.3gm) pkt 240ml PO SCH ×2 (07:59→17:39)
[2019-07-10 08:00] VITALS: BP 109/60
[2019-07-10] MEDS: docusate sod 100mg capsule PO SCH ×2 (08:00→20:42)
[2019-07-10] MEDS: lithium carbonate 150mg capsule PO SCH ×2 (08:01→20:42)
[2019-07-10] MEDS: venlafaxine XR 37.5mg cap (Q24H) PO SCH (08:01)
[2019-07-10] MEDS: gabapentin 400mg capsule PO SCH ×3 (08:02→20:41)
[2019-07-10] MEDS: oxyCODONE IR 5mg (immed. release) tablet PO PRN ×2 (09:29→19:02)
--- NOTE | 2019-07-10 17:53 | NUR ---
Nursing Progress Note: Legal hold: 525 Client on involuntary status for DTS Report received from BARAK Haddad with use of SBAR: Why are they here: Pt admitted to [facility] on 5150 for DTS. Pt was transferred from [facility] where he was in the ICU for several days due to overdose on 3000mg Wellbutrin. He also has self-inflicted lacerations with sutures to bilateral wrists with tendon and nerve damage. Pt states that this is his first suicidal attempt and was diagnosed with depression in 2016. Pt states feeling "out of it, and just very depressed and hopeless." Assessment What has happened this shift: Pt is sleeping at beginning of shift. He came to breakfast and then requested a shower. His bilateral splints were wrapped by RN and shower assisted by PCT. When shower complete RN re-dressed and wrapped bilateral splints. Bilateral Cap refill <2, + motion to fingers, but WB restricted per PT order, Sensation decreased on Left. Pt assisted with meals, dressing, and eating as per PT limitation orders. NWB. Pt talks with RN during 1:1 and states feeling depressed but hopeful to start college again. He admits hearing dark voices. He socialized with pts and his roommate. He was pleasant and kind and engaging in conversation with RN. PT here in the afternoon to work with pt. He walked the halls with another resident. S/I, H/I: Denies A/VH: Admits hearing dark voices. Sleep: 7.75 h per sleep assessment ADL's: Requires full assistance as he is NWB restrictions per PT order. Group attendance: Yes Were meds taken: Yes Any med S/E: None Mental Status Exam Appearance: Showered today. Wearing his own clothes. Neat, clean and appropriate Eye contact: Direct Behavior: Cooperative, pleasant, some socialization. Speech: WNL Mood: Depressed but hopeful Affect: Blunted Thought process: Poverty of thought Thought Content: Circumstantial Cognition: A&O X4 Insight: Fair Judgment: Fair Interventions PRN's used: Oxy IR Therapeutic interventions: Introduced self and established rapport, ensured contract for safety, maintained a safe and therapeutic environment, monitored pain and need for intervention, ensured daily dressing change to bilateral arms completed, provided assistance with ADLs r/t non-weight bearing order, and maintained Q 15min safety checks. Restraints/seclusion/emergency medication: N/A Justification of Continued Inpatient Treatment: Per Dr. He, due to ongoing s/s, pt. remains a high risk for discharge.
[2019-07-10 19:49] VITALS: BP 134/77
[2019-07-10] MEDS: traZODone 50mg tablet PO SCH (20:41)
[2019-07-10] MEDS: lurasidone 20mg tablet PO SCH (20:42)
--- NOTE | 2019-07-10 23:58 | NUR ---
Nursing Progress Note: Legal hold: 5270 Client on involuntary status for DTS Report received from RN with use of SBAR: ROSALBA Mixon Why are they here: Pt admitted to [facility] on 5150 for DTS. Pt was transferred from [facility] where he was in the ICU for several days due to overdose on 3000mg Wellbutrin. He also has self-inflicted lacerations with sutures to bilateral wrists with tendon and nerve damage. Pt states that this is his first suicidal attempt and was diagnosed with depression in 2016. Pt states feeling "out of it, and just very depressed and hopeless." Assessment What has happened this shift: Pt requested some pain medication right at shift change. His pain level was 6/10. Oxy IR was given with good effect. Pt spent some time in TV room socializing appropriately with other patients. He was cooperative during 1:1 physical assessment and took all his meds. He denies any S/I, or H/I and when asked about how he feels about his current hold he states that it went the direction he wanted it to go as he doesnt think that he is ready to go home yet. Pt states that it was a little hard reading the report from the hold but feels better now. Does not believe that this will change how he communicates with his providers and plans to be as honest as he has been. Assured pt that all the information recorded is confidential and this put him more at ease. Pt appears to be improving as his affect does not appear as flat, he also jokes with this RN and with other patients a little more. He is hopeful that staying here longer will help him. Pt retired to bed after medication pass. S/I, H/I: Denies A/VH: Denies Sleep: Currently sleeping, see sleep assessment for total hours ADL's: Pt. continues to be non weight bearing to bilateral wrists and splints will remain in place for 6-8 weeks. Pt. 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 Speech: Soft and WNL Mood: appears less depressed, he states he is doing better and hopeful Affect: Constricted with intermittent brightening Thought process: Linear Thought Content: Depression, pain, content with his current hold change, family, sikhism. Cognition: A&O X4 Insight: Fair Judgment: Fair Interventions PRN's used: Oxy IR X1 Therapeutic interventions: Introduced self and established rapport, ensured contract for safety, maintained a safe and therapeutic environment, monitored pain and need for intervention, ensured daily dressing change to bilateral arms completed, provided assistance with ADLs r/t non-weight bearing order, and maintained Q 15min safety checks. Restraints/seclusion/emergency medication: N/A Justification of Continued Inpatient Treatment: Per Dr. He, due to ongoing s/s, pt. remains a high risk for discharge.
[2019-07-11] MEDS: gabapentin 400mg capsule PO SCH ×3 (07:25→21:01)
[2019-07-11] MEDS: venlafaxine XR 37.5mg cap (Q24H) PO SCH (07:25)
[2019-07-11] MEDS: lithium carbonate 150mg capsule PO SCH ×2 (07:26→21:00)
[2019-07-11] MEDS: oxyCODONE IR 5mg (immed. release) tablet PO PRN ×2 (07:26→18:49)
[2019-07-11] MEDS: JUVEN Shake w/Arg/Glut/Ca2+Bmb (Juven 19.3gm) pkt 240ml PO SCH ×2 (07:30→17:46)
[2019-07-11] MEDS: docusate sod 100mg capsule PO SCH ×2 (07:31→21:00)
[2019-07-11 08:00] VITALS: BP 110/57
[2019-07-11] MEDS: traMADol 50MG tablet PO PRN (13:08)
--- NOTE | 2019-07-11 15:25 | NUR ---
Nursing Progress Note: Legal hold: 5270 Client on involuntary status for DTS Report received from RN with use of SBAR: Why are they here: Pt admitted to [facility] on 5150 for DTS. Pt was transferred from [facility] where he was in the ICU for several days due to overdose on 3000mg Wellbutrin. He also has self-inflicted lacerations with sutures to bilateral wrists with tendon and nerve damage. Pt states that this is his first suicidal attempt and was diagnosed with depression in 2016. Pt states feeling "out of it, and just very depressed and hopeless." Assessment What has happened this shift: Patient was resting in bed peacefully at change of shift. He eats his meals in the group room and takes his medications as ordered. He is seen ambulating in the halls and socializing with peers. He reports to PT during therapy that he is having "popping" and "increasing pain" in the left hand since last night. Pt states she would like to request to the MD to have an MRI done of the left wrist prior to performing therapy on the left hand as she is concerned for a ligament tear. MD notified. Splint removed from left arm by this RN and replaced by PT. He denies SI/HI, visual hallucinations. He does endorse intrusive thoughts of "dark voices". He is pleasant and cooperative with care and received PRN Tramadol and Oxy IR this shift for pain. S/I, H/I: Denies A/VH: Admits hearing dark voices. denies VH Sleep: up for the duration of the shift ADL's: Requires full assistance as he is NWB restrictions in BUE per PT order. Group attendance: Yes Were meds taken: Yes Any med S/E: None Mental Status Exam Appearance: Wearing his own clothes. Neat, clean and appropriate Eye contact: Direct Behavior: Cooperative, pleasant, social. Speech: WNL Mood: Depressed but hopeful Affect: Blunted Thought process: Poverty of thought, linear Thought Content: Circumstantial, talking about the bible Cognition: A&O X4 Insight: Fair Judgment: Fair Interventions PRN's used: Oxy IR, tramadol Therapeutic interventions: Introduced self and established rapport, ensured contract for safety, maintained a safe and therapeutic environment, monitored pain and need for intervention, ensured daily dressing change to bilateral arms completed, provided assistance with ADLs r/t non-weight bearing order, and maintained Q 15min safety checks. Restraints/seclusion/emergency medication: N/A Justification of Continued Inpatient Treatment: Per Dr. He, due to ongoing s/s, pt. remains a high risk for discharge.
[2019-07-11 20:09] VITALS: BP 137/82
[2019-07-11] MEDS: lurasidone 20mg tablet PO SCH (21:01)
[2019-07-11] MEDS: traZODone 50mg tablet PO SCH (21:01)
--- NOTE | 2019-07-12 01:19 | NUR ---
Nursing Progress Note: Legal hold: 5270 Client on involuntary status for DTS Report received from RN with use of SBAR: ROSALBA Mixon Why are they here: Pt admitted to [place] [facility] on 5150 for DTS. Pt was transferred from [facility] where he was in the ICU for several days due to overdose on 3000mg Wellbutrin. He also has self-inflicted lacerations with sutures to bilateral wrists with tendon and nerve damage. Pt states that this is his first suicidal attempt and was diagnosed with depression in 2016. Pt states feeling "out of it, and just very depressed and hopeless." Assessment What has happened this shift: The patient was walking the halls at shift change with another client. He immediately stopped and asked for pain medication. "Something happened to my wrist. It popped in there, and I can feel it in my fingers. He was medicated with Oxy IR, then continued to pace. The patient is cooperative with care, and compliant with medications. The patient understands he's not ready to go home yet. He spent most of the evening talking to other clients, then went to be after HS med pass. S/I, H/I: Denies A/VH: Denies Sleep: See sleep assessment ADL's: Pt. continues to be non weight bearing to bilateral wrists and splints will remain in place for 6-8 weeks. Pt. requires full assistance with all ADLs requiring use of bilateral arms Group attendance: None during night nurse Were meds taken: Yes Any med S/E: None observed or reported Mental Status Exam Appearance: Neat and appropriately dressed Eye contact: Good, direct Behavior: Cooperative, calm, socializing with other patients, friendly. Speech: Soft but normal rate/rhythm Mood: Depressed Affect: Constricted. Thought process: Linear Thought Content: Depression, pain, family. Cognition: A&O X4 Insight: Fair Judgment: Fair Interventions PRN's used: Oxy IR X1 Therapeutic interventions: Introduced self and established rapport, ensured contract for safety, maintained a safe and therapeutic environment, monitored pain and need for intervention, ensured daily dressing change to bilateral arms completed, provided assistance with ADLs r/t non-weight bearing order, and maintained Q 15min safety checks. Restraints/seclusion/emergency medication: N/A Justification of Continued Inpatient Treatment: Per Dr. He, due to ongoing s/s, pt. remains a high risk for discharge.
[2019-07-12] MEDS: JUVEN Shake w/Arg/Glut/Ca2+Bmb (Juven 19.3gm) pkt 240ml PO SCH ×3 (07:30→18:04)
[2019-07-12] MEDS: lithium carbonate 150mg capsule PO SCH ×2 (07:53→20:43)
[2019-07-12] MEDS: docusate sod 100mg capsule PO SCH ×2 (07:53→20:41)
[2019-07-12] MEDS: gabapentin 400mg capsule PO SCH ×3 (07:53→20:41)
[2019-07-12] MEDS: venlafaxine XR 37.5mg cap (Q24H) PO SCH (07:53)
[2019-07-12 08:00] VITALS: BP 115/60
[2019-07-12] MEDS: oxyCODONE IR 5mg (immed. release) tablet PO PRN ×2 (09:17→18:11)
--- NOTE | 2019-07-12 10:06 | NUR ---
Reassessment: Pt PO 75-100% avg meals/Edward shakes BID meeting needs. LBM 07/09. No nutrition concerns at this time. Will continue to monitor. Rec: 1. continue regular diet 2. Edward shake BIDBD 3. routine bowel care 4. wt per rx Addendum: 07/12/19 at [address] Amended: Links added.
--- NOTE | 2019-07-12 17:59 | NUR ---
Nursing Progress Note: Legal hold: 5270 Client on involuntary status for DTS Report received from Anne NAVARRETE with use of SBAR: Why are they here: Pt admitted to [place] [facility] on 5150 for DTS. Pt was transferred from [facility] where he was in the ICU for several days due to overdose on 3000mg Wellbutrin. He also has self-inflicted lacerations with sutures to bilateral wrists with tendon and nerve damage. Pt states that this is his first suicidal attempt and was diagnosed with depression in 2016. Pt states feeling "out of it, and just very depressed and hopeless." Assessment What has happened this shift: Pt. asleep at start of shift. Pt. took all medications and ate all meals in the community room. 1:1 done at bedside. Pt. reports that every other day he has suicidal thoughts and images in his head seeing himself commit suicide in different ways such as cutting his wrist, jumping off a building, or hanging himself. Pt. reports that he also sometimes has regrets of failing in his suicide attempt. Pt. denies current SI. Pt. reports that dark thoughts come when he is alone or when he is trying to fall asleep. Pt. reports that this is why hi make sure he stays awake during the day. Pt. talked about childhood activities such as visits to his grandparents. RN called surgeon who performed pt.s wrist surgeries. Regarding pt.s c/o of hearing and feeling a pop in his left wrist this past Friday and experiencing symptoms of burning and numbness in his left hand, Dr. Galeano informed RN that its possible that pt.s symptoms could be caused by loosening scar tissue and recommended ultrasound. Order for ultra sound obtained by Dr. He, however, RN informed that ultra sound not possible of median nerve. RN called Dr. Galeano back who informed this RN that an MRI is acceptable also. Ordered for MRI obtained from Dr. He, however, pt. has concerns over the costs of MRI if his insurance must pay. Physical therapy stopped until MRI can be obtained. Pt. observed pacing halls with peer and socializing. S/I, H/I: Denies current SI but reports every other day he has suicidal thoughts and images in his head seeing himself commit suicide in different ways such as cutting his wrist, jumping off a building, or hanging himself. Pt. reports that he also sometimes has regrets of failing in his suicide attempt. A/VH: Denies Sleep: Pt. did not nap. ADL's: Requires full assistance as he is NWB restrictions in BUE per PT order. Group attendance: Yes Were meds taken: Yes Any med S/E: None Mental Status Exam Appearance: Wearing his own clothes. Disheveled, but clean and appropriate Eye contact: Direct Behavior: Cooperative, pleasant, social. Speech: WNL Mood: Depressed Affect: Blunted Thought process: Linear Thought Content: Getting better Cognition: A&O X4 Insight: Fair Judgment: Fair Interventions PRN's used: Oxy IR x1 Therapeutic interventions: Introduced self and established rapport, ensured contract for safety, maintained a safe and therapeutic environment, monitored pain and need for intervention, ensured daily dressing change to bilateral arms completed, provided assistance with ADLs r/t non-weight bearing order, and maintained Q 15min safety checks. Restraints/seclusion/emergency medication: N/A Justification of Continued Inpatient Treatment: Per Dr. He, due to ongoing s/s, pt. remains a high risk for discharge.
[2019-07-12 20:00] VITALS: BP 133/82
[2019-07-12] MEDS: lurasidone 20mg tablet PO SCH (20:41)
[2019-07-12] MEDS: traZODone 50mg tablet PO SCH (20:41)
--- NOTE | 2019-07-13 03:18 | NUR ---
Nursing Progress Note: Legal hold: 5270 Client on involuntary status for DTS Report received ROSALBA Mixon with use of SBAR Why are they here: Pt admitted to [place] [facility] on 5150 for DTS. Pt was transferred from [facility] where he was in the ICU for several days due to overdose on 3000mg Wellbutrin. He also has self-inflicted lacerations with sutures to bilateral wrists with tendon and nerve damage. Pt states that this is his first suicidal attempt and was diagnosed with depression in 2016. Pt states feeling "out of it, and just very depressed and hopeless." Assessment What has happened this shift: The patient was seen walking the halls. He walks slowly, looks depressed, and appears quite fatigued. 1:1 at bedside. He reports having suicidal thoughts that can be quite persistent. "Sometimes I'll just be sitting somewhere, and all of a sudden, these thoughts come, and won't go away. I even start wishing that I had completed the suicide. Now my parents are afraid of me." He really appeared to be struggling with his intrusive thoughts tonight, but was compliant with medications, and went to bed right after HS med pass. S/I, H/I: Endorses suicidal thoughts A/VH: Denies Sleep: See sleep assessment ADL's: Pt. continues to be non weight bearing to bilateral wrists and splints will remain in place for 6-8 weeks. Pt. requires full assistance with all ADLs requiring use of bilateral arms Group attendance: None during fast food shift supervisor Were meds taken: Yes Any med S/E: None observed or reported Mental Status Exam Appearance: Neat and appropriately dressed in street clothes Eye contact: Good, direct Behavior: Cooperative, calm, socializing with other patients, friendly. Speech: Soft but normal rate/rhythm Mood: Depressed Affect: Constricted. Thought process: Linear Thought Content: Depression, pain, family. Cognition: A&O X4 Insight: Fair Judgment: Fair Interventions PRN's used: None Therapeutic interventions: Introduced self and established rapport, ensured contract for safety, maintained a safe and therapeutic environment, monitored pain and need for intervention, ensured daily dressing change to bilateral arms completed, provided assistance with ADLs r/t non-weight bearing order, and maintained Q 15min safety checks. Restraints/seclusion/emergency medication: N/A Justification of Continued Inpatient Treatment: Per Dr. He, due to ongoing s/s, pt. remains a high risk for discharge.
[2019-07-13] MEDS: docusate sod 100mg capsule PO SCH ×2 (07:45→20:58)
[2019-07-13] MEDS: venlafaxine XR 37.5mg cap (Q24H) PO SCH (07:45)
[2019-07-13] MEDS: lithium carbonate 150mg capsule PO SCH ×2 (07:46→20:58)
[2019-07-13] MEDS: gabapentin 400mg capsule PO SCH ×3 (07:47→20:58)
[2019-07-13] MEDS: JUVEN Shake w/Arg/Glut/Ca2+Bmb (Juven 19.3gm) pkt 240ml PO SCH ×2 (07:48→17:44)
[2019-07-13 08:00] VITALS: BP 121/60
--- NOTE | 2019-07-13 09:20 | NUR ---
This Clinician provided individual therapy to Client within the setting of the medical milieu in his room on 07/13/19. As this was an initial introduction, this Clinician introduced himself to Client. Client was reading out of the New Testament in the [place] of [place], and indicated that his spirituality was important to him. This Clinician asked Client about his hobbies and interests in order to establish initial rapport. This Clinician asked him a scaling question regarding his current level of depression with 1 being low and 10 being high. Client indicated that his depression was around a 5-6, but it was considerably higher before he entered the unit during his suicide attempt. Client endorsed experiencing more depression now. However, he reported feelings of anxiety, depression, paranoia and hopelessness during his recent suicide attempt when he cut his wrists. This Clinician encouraged Client to engage in thinking that could result in more feelings of hopefulness and positivity that he could use to make an attempt to lower his current level of depression from a 5-6 down to a "3-4." As a suggestion, this Clinician mentioned that he could focus on positive interactions that he had with others in the medical milieu, or upon fascinating and hopeful ideas that he was learning from the Bible, which are in line with Client's spiritual tradition. Babak Guevara MA, DIRECTOR OF COMPLIANCE Addendum: 07/13/19 at 0936 by Babak Guevara SS Amended: Links added.
[2019-07-13] MEDS: LORazepam 1 MG tablet PO PRN (09:32)
[2019-07-13] MEDS: oxyCODONE IR 5mg (immed. release) tablet PO PRN ×2 (10:27→18:30)
[2019-07-13] MEDS: magnesium hydroxide 30ml (MOM) UD suspension PO PRN (12:48)
--- NOTE | 2019-07-13 17:56 | NUR ---
Nursing Progress Note: Legal hold: 5270 Client on involuntary status for DTS Report received from Maru NAVARRETE with use of SBAR: Why are they here: Pt admitted to [place] [facility] on 5150 for DTS. Pt was transferred from [facility] where he was in the ICU for several days due to overdose on 3000mg Wellbutrin. He also has self-inflicted lacerations with sutures to bilateral wrists with tendon and nerve damage. Pt states that this is his first suicidal attempt and was diagnosed with depression in 2016. Pt states feeling "out of it, and just very depressed and hopeless." Assessment What has happened this shift: Pt. asleep at start of shift. Pt. awake for medications and breakfast. Pt. ate all meals in community room. Pt. reports he slept well. 1:1 done at bedside. Pt. reports thinking of suicide, intrusive thoughts of cutting his wrist. Pt. reports today he had the new idea of overdosing on laundry detergent pods. Pt. states he heard that someone once from that. Pt. reports 4/10 depression and 6/10 anxiety. Pt. is concerned about the future but is unable to express his concerns. Pt. also c/o constipation and received milk of magnesia once today. Pt. had MRI of his left median nerve to rule out tear and the impression was no evidence for a median nerve tear. Pt. seen talking with his roommate as well as peers in the hallway. Dressings not changed as they were changed yesterday because There are two interventions from the wound care nurse, one says to change dressing every 3 days and one says every shift. RN attempted to clarify order and left message with wound care. The wounds continue to be well approximated, have no drainage, and show no S&S of infection. S/I, H/I: Denies current SI but reports every other day he has suicidal thoughts and images in his head seeing himself commit suicide in different ways such as cutting his wrist and overdosing on laundry detergent pods. A/VH: Denies Sleep: Pt. did not nap. ADL's: Requires full assistance as he is NWB restrictions in BUE per PT order. Group attendance: Yes Were meds taken: Yes Any med S/E: None Mental Status Exam Appearance: Wearing his own clothes. Disheveled, but clean and appropriate Eye contact: Direct Behavior: Cooperative, pleasant, social. Speech: WNL Mood: Depressed Affect: Blunted Thought process: Linear Thought Content: Angst over future. Suicidal thoughts. Cognition: A&O X4 Insight: Fair Judgment: Fair Interventions PRN's used: Oxy IR and MOM x1 Therapeutic interventions: Introduced self and established rapport, ensured contract for safety, maintained a safe and therapeutic environment, monitored pain and need for intervention, ensured daily dressing change to bilateral arms completed, provided assistance with ADLs r/t non-weight bearing order, and maintained Q 15min safety checks. Restraints/seclusion/emergency medication: N/A Justification of Continued Inpatient Treatment: Per Dr. He, due to ongoing s/s, pt. remains a high risk for discharge. Pt. has intrusive suicidal thoughts and images.
[2019-07-13 20:37] VITALS: BP 148/87
[2019-07-13] MEDS: traZODone 50mg tablet PO SCH (20:58)
--- NOTE | 2019-07-14 01:04 | NUR ---
Nursing Progress Note: Legal hold: 5270 Client on involuntary status for DTS Report received ROSALBA Mixon with use of SBAR Why are they here: Pt admitted to [place] [facility] on 5150 for DTS. Pt was transferred from [facility] where he was in the ICU for several days due to overdose on 3000mg Wellbutrin. He also has self-inflicted lacerations with sutures to bilateral wrists with tendon and nerve damage. Pt states that this is his first suicidal attempt and was diagnosed with depression in 2016. Pt states feeling "out of it, and just very depressed and hopeless." Assessment What has happened this shift: The patient was seen at bedside for 1:1. The patient states that he believes nothing will change, "Am I always going to be like this?" He confirms that his depression is still bad, and he's still having persistent SI. "Not always, but the thoughts pop up ant time. Sometimes I wish I had been able to pull it off." The patient continues to be depressed, hopeless, and doesn't see light at the end of the tunnel. He spent the evening walking with another client. He made no c/o pain, but stated he still feels burning in his hand. S/I, H/I: Endorses occasional suicidal thoughts A/VH: Denies Sleep: See sleep assessment ADL's: Pt. continues to be non weight bearing to bilateral wrists and splints will remain in place for 6-8 weeks. Pt. requires full assistance with all ADLs requiring use of bilateral arms Group attendance: None during night worker Were meds taken: Yes Any med S/E: None observed or reported Mental Status Exam Appearance: Neat and appropriately dressed in street clothes Eye contact: Good, direct Behavior: Cooperative, calm, socializing with other patients, friendly. Speech: Soft but normal rate/rhythm Mood: Depressed Affect: Constricted. Thought process: Linear Thought Content: Depression, pain, family. Cognition: A&O X4 Insight: Fair Judgment: Fair Interventions PRN's used: None Therapeutic interventions: Introduced self and established rapport, ensured contract for safety, maintained a safe and therapeutic environment, monitored pain and need for intervention, ensured daily dressing change to bilateral arms completed, provided assistance with ADLs r/t non-weight bearing order, and maintained Q 15min safety checks. Restraints/seclusion/emergency medication: N/A Justification of Continued Inpatient Treatment: Per Dr. He, due to ongoing s/s, pt. remains a high risk for discharge.
[2019-07-14] MEDS: JUVEN Shake w/Arg/Glut/Ca2+Bmb (Juven 19.3gm) pkt 240ml PO SCH ×2 (07:30→18:14)
[2019-07-14 08:00] VITALS: BP 105/63
[2019-07-14] MEDS: docusate sod 100mg capsule PO SCH ×2 (09:00→20:30)
[2019-07-14] MEDS: lithium carbonate 150mg capsule PO SCH ×2 (09:00→20:30)
[2019-07-14] MEDS: venlafaxine XR 37.5mg cap (Q24H) PO SCH (09:00)
[2019-07-14] MEDS: oxyCODONE IR 5mg (immed. release) tablet PO PRN ×2 (09:01→18:32)
[2019-07-14] MEDS: gabapentin 400mg capsule PO SCH ×3 (09:01→20:30)
--- NOTE | 2019-07-14 10:00 | NUR ---
Process Group: This Clinicians goal in providing this process group was to: (1) orient the Patients to this Clinicians rules and expectations for group conduct. (2) engage in personal introductions in order to develop rapport with patients in the group milieu, (3) and encourage Patients to process their thoughts and feelings regarding their time on the unit and the resumption of group therapy on the unity. More specifically, this Clinician emphasized the importance of maintaining patients confidentiality in the group milieu. Also this Clinician encourage the use of I statements, when expressing frustration instead of specifically referencing other patients in the group as the potential source of their frustration in order to avoid unnecessary conflict. This Clinician asked Patients to share their name and something about them that they would feel comfortable sharing with the group. The majority of time was spent processing Clients thoughts and feelings regarding their individual experiences in the medical milieu and their thoughts and feelings about the resumption of therapy in the group setting. Patient presented as open and cooperative within the group milieu. Patient identified himself to the group and noted that some of his hobbies were riding his bike and reading his Bible. Patient presented as subdued during group process and did not speak unless called upon by this Clinician. When asked by this Clinician interventions that he might be able to utilize to reduce his symptoms of stress, anxiety and depression while being on the unit floor in the medical milieu, Patient responded that he enjoys listening to music and reading in order to calm down. Babak Guevara MA, TERRENCE Addendum: 07/15/19 at 0844 by Babak Guevara SS Amended: Links added.
[2019-07-14] MEDS: traMADol 50MG tablet PO PRN ×2 (13:38→20:29)
--- NOTE | 2019-07-14 15:46 | NUR ---
Nursing Progress Note: Legal hold: 5270 Client on involuntary status for DTS Report received from nurse with use of SBAR: ROSALBA Mahoney Why are they here: Pt admitted to [place] [facility] on 5150 for DTS. Pt was transferred from [facility] where he was in the ICU for several days due to overdose on 3000mg Wellbutrin. He also has self-inflicted lacerations with sutures to bilateral wrists with tendon and nerve damage. Pt states that this is his first suicidal attempt and was diagnosed with depression in 2016. Pt states feeling "out of it, and just very depressed and hopeless." Assessment What has happened this shift: Received pt. in bed sleeping at the beginning of the shift, he awoke for breakfast and presents as cooperative and pleasant, however withdrawn. 1:1 completed at bedside, pt. denies S/I, however reports that he has felt more "Depressed and down over the last few days." When questioned further by this engineering writer, pt. admits that his increased depression was possibly r/t his increased pain in bilateral arms, however he is feeling better today. Pt. then states, "I just have a lot of unresolved things I have to face when I go home." He talks about college, and all of the the class work he has to catch up on in order to finish his major. Pt. then admits that he has been majoring in engineering, but is unsure if he really wants to become an tugboat engineer. This engineering writer suggested that pt. possibly try an vertical punch operator program to see if he really enjoys engineering, however he reported that he had previously tried to enroll in one, but had been denied. Pt. admits that he is having decreased pain, and continues to enjoy participating in physical therapy. He is observed throughout the shift to be in his room reading, or up interacting minimally with others throughout the shift. S/I, H/I: Denies A/VH: Denies, does not appear internally preoccupied Sleep: Pt. reports he slept well, sleep hours are 7.5 ADL's: Pt. continues to be non weight bearing to bilateral wrists and splints will remain in place for 6-8 weeks. Pt. requires full assistance with all ADLs requiring use of bilateral arms Group attendance: Yes Were meds taken: Yes Any med S/E: None Mental Status Exam Appearance: Neat and appropriately dressed Eye contact: Good Behavior: Cooperative, withdrawn, and guarded Speech: Soft and WNL Mood: Depressed and withdrawn Affect: Constricted Thought process: Poverty of thought Thought Content: Continued depression and hopelessness Cognition: A&O X4 Insight: Fair Judgment: Fair Interventions PRN's used: Oxycodone and Ultram Therapeutic interventions: Ensured contract for safety, maintained a safe and therapeutic environment, monitored pain and need for intervention, ensured dressing change to bilateral arms completed and attempted to clarify order whether needs to be daily or Q3 days, provided assistance with ADLs r/t non-weight bearing order, and maintained Q 15min safety checks. Restraints/seclusion/emergency medication: N/A Justification of Continued Inpatient Treatment: Per Dr. He, pt. remains a high risk for discharge r/t his continued depression, decreased energy, and inability to perform ADLs independently.
--- NOTE | 2019-07-14 16:10 | NUR ---
Wound Care: Left a message to clarify with Wound Care whether pt's dressing change needs to be done daily or Q 3 days.
[2019-07-14 19:32] VITALS: BP 142/93
[2019-07-14] MEDS: traZODone 50mg tablet PO SCH (20:30)
--- NOTE | 2019-07-14 23:07 | NUR ---
Nursing Progress Note: Legal hold: 5270 Client on an involuntary old for being a danger to himself Report received from Raul NAVARRETE with use of SBAR Why are they here: The patient is a 24 year old male who was admitted on a 5150 hold after being medically treated following a suicide attempt by overdosing on Wellbutrin and cutting both his arms with a saw. He has a history of being in psychiatric hospitals in the past. Current diagnosis is Bipolar 1 disorder with depression severe. Unspecified psychosis Assessment What has happened this shift: The patient has been withdrawn from peers. He was observed up in the hallway outside his room talking on the phone. He is very pleasant and polite when approached for the evening assessment. He reports, "I still don't feel great in the head or emotionally" He stated that 90% of his thinking is negative. He pointed to his head and stated, "My head is a mess" He reports continued suicidal thinking and stated he thinks of numerous ways he could kill himself. He did state he believes he can be safe here on the unit. He stated he is having difficulty finding reasons to live. He also stated that he has no motivation or will to make things happen in his life. S/I, H/I: Continued suicidal thoughts A/VH: the patient does not appear to be responding to internal stimuli ADL's: Appears clean and well groomed Were meds taken: The patient is med compliant Any med S/E none reported or observed Mental Status Exam Appearance: Appears clean and well groomed Eye contact: Appropriate Behavior: withdrawn from peers but friendly when approached Speech: spontaneous, moderate rate and rhythm Mood: Depressed Affect: congruent to stated mood Thought process: racing thoughts Thought Content: negative thoughts, feelings of hopelessness. Suicidal thoughts Cognition: Alert and oriented Insight: Fair Judgment: Fair Interventions PRN's used: Ultram at HS Therapeutic interventions: One to one with the patient to assess severity of depressive symptoms and self harm risk. He is on q 15 minute safety checks. Encouraged patient to talk about how he is feeling. Justification of Continued Inpatient Treatment: The patient is continuing to report that he is having suicidal thoughts.
[2019-07-15] MEDS: lithium carbonate 150mg capsule PO SCH ×2 (08:17→20:30)
[2019-07-15] MEDS: venlafaxine XR 37.5mg cap (Q24H) PO SCH (08:17)
[2019-07-15] MEDS: JUVEN Shake w/Arg/Glut/Ca2+Bmb (Juven 19.3gm) pkt 240ml PO SCH ×2 (08:17→17:31)
[2019-07-15] MEDS: docusate sod 100mg capsule PO SCH ×2 (08:17→20:28)
[2019-07-15] MEDS: gabapentin 400mg capsule PO SCH ×3 (08:17→20:32)
[2019-07-15 08:38] LABS: ALBUMIN 4.1 G/DL (3.4-5.0); ANION GAP 8 (8-16); BLOOD UREA NITROGEN 15 MG/DL (7-18); BUN/CREATININE RATIO 11.8 (5.4-32.0); CALCIUM 9.5 MG/DL (8.5-10.1); CHLORIDE 105 MMOL/L (99-107); CREATININE 1.27 MG/DL (0.60-1.10); GLUCOSE 111 MG/DL (70-104); POTASSIUM 4.1 MMOL/L (3.5-5.1); SODIUM 142 MMOL/L (135-145); eGFR 71 ML/MIN
[2019-07-15 08:48] VITALS: BP 101/50
[2019-07-15] MEDS: ibuprofen tablet 400 MG TABLET PO PRN (09:00)
[2019-07-15] MEDS: oxyCODONE IR 5mg (immed. release) tablet PO PRN ×2 (09:00→19:23)
--- NOTE | 2019-07-15 10:00 | NUR ---
Group Therapy: Process Group This Clinicians goals for this process group were as follows: (1) Provide psychoeducation about emotional escalation as it relates to both thoughts and bodily sensations. (2) Teach patients to identify on a scale from 1-10 (1 low, 10 high) their level of emotional escalation as it relates to several different symptoms and feelings states. (3) Ask Client to identify and say out loud their identified number as it relates to anxiety, depression, and irritability. (4) Provide psychoeducation on the importance of practicing mindfulness to both identify ones number in an effort to begin emotionally self-soothing before a crisis episode occurs. (5) Process Patients reflections on the before-mentioned principles. Patient presented as open and cooperative within the group milieu. Patient identified experiencing the following levels of anxiety, depression, and anger/irritability while present in the group milieu. Anxiety: 05/03 Depression: 07/03 Anger irritability: -04/05 Patient presented as cooperative, but subdued during the group process, only making comments when called upon by this Clinician. Patient frequently shut his eyes in group; however, he appeared to track with the discussion, per this Clinician's impression. When asked by this Clinician, Patient was able to describe what his anger/irritability symptoms felt like as they presented as thoughts in his head and sensations in his body when he was at a "2." More specifically, he noted that when his anger is at a "2" he feels more tense, anxious, and irritable in his mind; however, those sensations do not equate to any bodily tension or sensations that he was aware of. Babak Guevara MA, [employer] Addendum: 07/16/19 at 0827 by Babak Guevara Amended: Links added.
--- NOTE | 2019-07-15 14:58 | NUR ---
Wound Care Orders It was verified with wound care nurse dressing changes are q3d.
--- NOTE | 2019-07-15 15:00 | NUR ---
NURSING PROGRESS NOTE Legal hold: [id number] Client on involuntary status for DTS Report received from ROSALBA Mahoney with use of SBAR Why are they here: Pt admitted to [place] for [facility] on 5150 for DTS. Pt was transferred from [facility] where he was in the ICU for several days due to overdose on 3000mg Wellbutrin. He also has self-inflicted lacerations with sutures to bilateral wrists with tendon and nerve damage. Pt states that this is his first suicidal attempt and was diagnosed with depression in 2016. Pt states feeling "out of it, and just very depressed and hopeless." Assessment What has happened this shift: Asleep at change of shift. Got up to breakfast, eating well. Brighter affect today but still feeling hopeless and overwhelmed. Reports feeling apprehensive about going home to his parents house in [place] because, "I'm afraid everything will be the same and I won't be able to handle it." States he has "unresolved issues at home." Also states when he talks to his relatives or friends they act like nothing ever happened. Educated patient that our loved ones also feel traumatized over events and they may not know how to react or talk to him, or what to say, so they just act like they always have. Suggested he be honest and open with his loved ones about his own feelings and needs. Patient reports having repetitive negative thoughts that overwhelm him. Discussed possible ways to help with negative thought patterns and patient was open to the idea of perhaps CBT or some other treatment. (This was reported to the SW) When asked if he "hears voices or sees things" he stated "No, it's just my own thoughts, I don't hear a strange voice." Depressed, flat and withdrawn but polite and cooperative. S/I, H/I: passive SI at times A/VH: Denies, does not appear internally preoccupied Sleep: Napped ADL's: Pt. continues to be non weight bearing to bilateral wrists and splints will remain in place for 6-8 weeks. Pt. requires full assistance with all ADLs requiring use of bilateral arms Group attendance: Yes Were meds taken: Yes Any med S/E: None Mental Status Exam Appearance: Neat and appropriately dressed Eye contact: Good Behavior: Cooperative, withdrawn Speech: clear and soft Mood: Depressed and withdrawn Affect: flat, distressed Thought process: linear Thought Content: discharge plans are creating anxiety Cognition: A&O X4 Insight: Fair Judgment: Fair Interventions PRN's used: Oxycodone and Motrin Therapeutic interventions: Ensured contract for safety, maintained a safe and therapeutic environment, monitored pain and need for intervention, provided assistance with ADLs r/t non-weight bearing order, and maintained Q 15min safety checks. Restraints/seclusion/emergency medication: N/A Justification of Continued Inpatient Treatment: Per Dr. He, pt. remains a high risk for discharge r/t his continued depression, decreased energy, and inability to perform ADLs independently.
[2019-07-15 19:00] VITALS: BP 122/80
[2019-07-15] MEDS: traZODone 50mg tablet PO SCH (20:30)
--- NOTE | 2019-07-16 01:16 | NUR ---
NURSING PROGRESS NOTE Legal hold: [id number] Client on involuntary status for DTS Report received from ROSALBA Maharaj with use of SBAR Why are they here: Pt admitted to [place] for [facility] on 5150 for DTS. Pt was transferred from [facility] where he was in the ICU for several days due to overdose on 3000mg Wellbutrin. He also has self-inflicted lacerations with sutures to bilateral wrists with tendon and nerve damage. Pt states that this is his first suicidal attempt and was diagnosed with depression in 2016. Pt states feeling "out of it, and just very depressed and hopeless." Assessment What has happened this shift: This patient was socializing with others after shift change. Patient had eaten a full dinner. This patient is oriented X4, W/D, he has good color. 1:1 interview was conducted in patients room. This patient does not make eye contact for the first few minutes of conversation, he then makes intermittent contact. The patient denies S/I at this time but states he had negative thoughts earlier, "the thoughts were chirping at me." Patient denies any hallucinations. He describes feeling hopelessness, "I'm a failure." This patient describes depression over the past few years. 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 Patient states his only adult experience without depression was when he went to a [employer] for three months. 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 The patient experienced pain in his left palm earlier which was treated successfully with pain medication.The patients wrist splint was put back into place at 2100 hours and secured with an kathryn wrap. Good distal CSM's post spint replacement. The patient is medication compliant. He is reminded that he is in a safe place. The patient was therapeutic re-assurance that things will improve. The patient retired to sleep. S/I, H/I: Patient states S/I during day, not on 1:1 interview. A/VH: Denies. Sleep: Will tally at 0500 hrs. ADL's: Pt. continues to be non weight bearing to bilateral wrists and splints will remain in place for 6-8 weeks. Pt. requires full assistance with all ADLs requiring use of bilateral arms. Group attendance: Attended group on day shift. Were med's taken: Yes, patient is medication compliant. Any med S/E: None. Mental Status Exam Appearance: Well groomed and well dressed. Eye contact: Poor, improved with conversation. Behavior: Cooperative, quiet. Speech: Soft voice, regular rhythm. Mood: Depressed and withdrawn, mild anxiety. Affect: Flat. Thought process: Linear. Thought Content: Depression, hopeless, I'm a failure. Cognition: A&O X4 Insight: Fair. Judgment: Fair. Interventions PRN's used: Oxycodone. Therapeutic interventions: Ensured contract for safety, maintained a safe and therapeutic environment, monitored pain and need for intervention, provided assistance with ADLs r/t non-weight bearing order, and maintained Q 15min safety checks. Restraints/seclusion/emergency medication: N/A Justification of Continued Inpatient Treatment: Per Dr. He, pt. remains a high risk for discharge r/t his continued depression, decreased energy, and inability to perform ADLs independently.
[2019-07-16 08:00] VITALS: BP 101/50
[2019-07-16] MEDS: venlafaxine XR 37.5mg cap (Q24H) PO SCH (08:12)
[2019-07-16] MEDS: gabapentin 400mg capsule PO SCH ×3 (08:13→20:29)
[2019-07-16] MEDS: lithium carbonate 150mg capsule PO SCH ×2 (08:13→20:29)
[2019-07-16] MEDS: docusate sod 100mg capsule PO SCH ×2 (08:13→20:29)
[2019-07-16] MEDS: JUVEN Shake w/Arg/Glut/Ca2+Bmb (Juven 19.3gm) pkt 240ml PO SCH ×3 (08:14→20:35)
[2019-07-16] MEDS: oxyCODONE IR 5mg (immed. release) tablet PO PRN ×2 (11:20→16:46)
[2019-07-16] MEDS: ibuprofen tablet 400 MG TABLET PO PRN (11:20)
--- NOTE | 2019-07-16 14:36 | NUR ---
NURSING PROGRESS NOTE Legal hold: [id number] Client on involuntary status for DTS Report received from ROSALBA Kaplan with use of SBAR Why are they here: Pt admitted to [place] for [facility] on 5150 for DTS. Pt was transferred from [facility] where he was in the ICU for several days due to overdose on 3000mg Wellbutrin. He also has self-inflicted lacerations with sutures to bilateral wrists with tendon and nerve damage. Pt states that this is his first suicidal attempt and was diagnosed with depression in 2016. Pt states feeling "out of it, and just very depressed and hopeless." Assessment What has happened this shift: Asleep at change of shift. Up for breakfast looking very tired, stated, "I didn't sleep very well last night." Up and about on unit today later in the day looking brighter. Smiling at times. Talking at length with roommate. PT came to work with patient. Depressed, blunted affect, calm ,polite, and cooperative. Med compliant. Medicated for pain with OXY and Motrin. Denies suicidal thoughts today. Denies hallucinations and does not appear to be RIS. S/I, H/I: denies A/VH: Denies, does not appear internally preoccupied Sleep: Napped ADL's: Pt. continues to be non weight bearing to bilateral wrists and splints will remain in place for 6-8 weeks. Pt. requires full assistance with all ADLs requiring use of bilateral arms Group attendance: Yes Were meds taken: Yes Any med S/E: None Mental Status Exam Appearance: Neat and appropriately dressed Eye contact: Good Behavior: Cooperative, withdrawn Speech: clear and soft Mood: Depressed Affect: blunted with some bright moments Thought process: linear Thought Content: discharge plans are creating anxiety Cognition: A&O X4 Insight: Fair Judgment: Fair Interventions PRN's used: Oxycodone and Motrin Therapeutic interventions: Ensured contract for safety, maintained a safe and therapeutic environment, monitored pain and need for intervention, provided assistance with ADLs r/t non-weight bearing order, and maintained Q 15min safety checks. Restraints/seclusion/emergency medication: N/A Justification of Continued Inpatient Treatment: Per Dr. He, pt. remains a high risk for discharge r/t his continued depression, decreased energy, and inability to perform ADLs independently.
[2019-07-16 19:00] VITALS: BP 114/84
[2019-07-16] MEDS: traZODone 50mg tablet PO SCH (20:29)
--- NOTE | 2019-07-17 04:02 | NUR ---
NURSING PROGRESS NOTE Legal hold: [id number] Client on involuntary status for DTS Report received from BARAK Maharaj with use of SBAR Why are they here: Pt admitted to [place] for [facility] on 5150 for DTS. Pt was transferred from [facility] where he was in the ICU for several days due to overdose on 3000mg Wellbutrin. He also has self-inflicted lacerations with sutures to bilateral wrists with tendon and nerve damage. Pt states that this is his first suicidal attempt and was diagnosed with depression in 2016. Pt states feeling "out of it, and just very depressed and hopeless." Assessment What has happened this shift: Patient socializing with roommate at the beginning of shift. Pleasant and cooperative with all care; complaint with medication. Patient reported pain this shift but refused pain medication at the time. Patient dressing to bilateral lower arms CDI; splint placed on L arm and wrapped with KAY wrap. He denies SI, HI, A/VH but reports feeling "hopeless." "I was just sitting in the hallway chair earlier and it just... comes upon me." Patient participated in HS snack and shortly after receiving medications retired to bed. S/I, H/I: Denies A/VH: Denies Sleep: Refer to sleep assessment ADL's: Pt. continues to be non weight bearing to bilateral wrists and splints will remain in place for 6-8 weeks. Pt. requires full assistance with all ADLs requiring use of bilateral arms. Group attendance: No groups this shift Were med's taken: Yes Any med S/E: None observed or reported Mental Status Exam Appearance: Neat, clean, wearing appropriate attire Eye contact: Fair Behavior: Cooperative, socializing with roommate Speech: Soft, clear, regular rate/rhythm. Mood: "hopeless Affect: Constricted Thought process: Linear Thought Content: Hopelessness Cognition: A&O X4 Insight: Fair. Judgment: Fair. Interventions PRN's used: None Therapeutic interventions: Ensured contract for safety, maintained a safe and therapeutic environment, monitored pain and need for intervention, provided assistance with ADLs r/t non-weight bearing order, and maintained Q 15min safety checks. Restraints/seclusion/emergency medication: N/A Justification of Continued Inpatient Treatment: Per Dr. He, pt. remains a high risk for discharge r/t his continued depression, decreased energy, and inability to perform ADLs independently.
[2019-07-17 08:00] VITALS: BP 110/61
[2019-07-17] MEDS: gabapentin 400mg capsule PO SCH ×3 (08:05→20:23)
[2019-07-17] MEDS: ibuprofen tablet 400 MG TABLET PO PRN ×2 (08:05→16:15)
[2019-07-17] MEDS: magnesium hydroxide 30ml (MOM) UD suspension PO SCH (08:05)
[2019-07-17] MEDS: lithium carbonate 150mg capsule PO SCH ×2 (08:06→20:34)
[2019-07-17] MEDS: venlafaxine XR 37.5mg cap (Q24H) PO SCH (08:07)
[2019-07-17] MEDS: oxyCODONE IR 5mg (immed. release) tablet PO PRN ×4 (08:07→20:24)
[2019-07-17] MEDS: docusate sod 100mg capsule PO SCH ×2 (08:07→20:23)
--- NOTE | 2019-07-17 14:50 | NUR ---
1:1 session: Met with pt today continued struggles with depression but denies any current suicidal thoughts.Participated in process group earlier. Using a squeeze ball in his left hand to strengthen.Stated he is currently looking at possible options to return back to [place] with his uncle and aunt or back home to [place] with his parents. Stated he has struggled with depression for many years and was feeling confused about his life that he did not have direction and Covid 19 exacerbated that sense of feeling lost and already feeling like a failure as a young adult and in college at [place]. Assistes in validating and developing a sense of direction which revolves focusing on his care needs and deciding if [place] or [place] would be easier for him to focus on self and eventually realizing [place] is probably the best place for him. Pt now realizes he needs to establish out pt svs and develope support other than family. CECIL Velásquez
--- NOTE | 2019-07-17 15:17 | NUR ---
NURSING PROGRESS NOTE Legal hold: [id number] Client on involuntary status for DTS Report received from LAMAR Taylor with use of SBAR Why are they here: Pt admitted to [place] for [facility] on 5150 for DTS. Pt was transferred from [facility] where he was in the ICU for several days due to overdose on 3000mg Wellbutrin. He also has self-inflicted lacerations with sutures to bilateral wrists with tendon and nerve damage. Pt states that this is his first suicidal attempt and was diagnosed with depression in 2016. Pt states feeling "out of it, and just very depressed and hopeless." Assessment What has happened this shift: Asleep at change of shift, got up for breakfast, eating well. Bright, intelligent, and wanting to understand his circumstances. States he has waves of hopelessness that wash over him and he feels it as "a pit in my stomach." Obsessive thoughts about failures, and "if he will fail again." Encouraged to develop support system and to learn to manage his own illness, follow his own passions. Depressed, hopeless at times with some bright moments. Small smile when asked about suicidal thoughts and states, "it triggers me and spirals my thoughts when you guys ask me that, everyone asks me about that, it bothers me." Explained why in this setting and based on recent suicide attempt we monitor his thoughts and emotions carefully to be able to intervene. Patient understood. S/I, H/I: once in awhile has thoughts A/VH: Denies, does not appear internally preoccupied Sleep: Napped ADL's: needs help Group attendance: Yes Were meds taken: Yes Any med S/E: None Mental Status Exam Appearance: Neat and appropriately dressed Eye contact: Good Behavior: Cooperative Speech: clear and soft Mood: Depressed Affect: blunted with some bright moments Thought process: linear Thought Content: fears of failing again Cognition: A&O X4 Insight: Fair Judgment: Fair Interventions PRN's used: Oxycodone and Motrin Therapeutic interventions: Ensured contract for safety, maintained a safe and therapeutic environment, monitored pain and need for intervention, provided assistance with ADLs r/t non-weight bearing order, and maintained Q 15min safety checks. Restraints/seclusion/emergency medication: N/A Justification of Continued Inpatient Treatment: Per Dr. He, pt. remains a high risk for discharge r/t his continued depression, decreased energy, and inability to perform ADLs independently.
[2019-07-17] MEDS: JUVEN Shake w/Arg/Glut/Ca2+Bmb (Juven 19.3gm) pkt 240ml PO SCH (17:31)
--- NOTE | 2019-07-17 17:32 | NUR ---
DRESSING CHANGE 07/17/19 @1700 Dressings were changed today at 1700. Wounds are CD&I with no s/s of infection. Well approximated.
[2019-07-17 20:00] VITALS: BP 126/74
[2019-07-17] MEDS: traZODone 50mg tablet PO SCH (20:23)
--- NOTE | 2019-07-18 05:38 | NUR ---
NURSING PROGRESS NOTE Legal hold: 5270 Client on involuntary status for DTS Report received from BARAK Maharaj with use of SBAR Why are they here: Pt admitted to [place] for [facility] on 5150 for DTS. Pt was transferred from [facility] where he was in the ICU for several days due to overdose on 3000mg Wellbutrin. He also has self-inflicted lacerations with sutures to bilateral wrists with tendon and nerve damage. Pt states that this is his first suicidal attempt and was diagnosed with depression in 2016. Pt states feeling "out of it, and just very depressed and hopeless." Assessment What has happened this shift: Patient observed sitting on his bed at the beginning of shift. Pleasant and cooperative with all care; compliant with all medication. PRN Oxy provided for pain upon request with positive effect. Patient denies SI, HI, A/VH but continues to express hopelessness. Patient observed briefly on the unit to request medication and immediately back in his bedroom. Splint placed on his L arm upon request; he reports "extra relief and protection" when laying in bed. S/I, H/I: Denies A/VH: Denies Sleep: Refer to sleep assessment ADL's: Pt. continues to be non weight bearing to bilateral wrists and splints will remain in place for 6-8 weeks. Pt. requires full assistance with all ADLs requiring use of bilateral arms. Group attendance: No groups this shift Were med's taken: Yes Any med S/E: None observed or reported Mental Status Exam Appearance: Neat, clean, wearing appropriate attire Eye contact: Fair Behavior: Cooperative, socializing with roommate, isolative Speech: Soft, clear, regular rate/rhythm. Mood: "hopeless" Affect: Constricted Thought process: Linear Thought Content: Hopelessness Cognition: A&O X4 Insight: Fair. Judgment: Fair. Interventions PRN's used: Oxy Therapeutic interventions: Ensured contract for safety, maintained a safe and therapeutic environment, monitored pain and need for intervention, provided assistance with ADLs r/t non-weight bearing order, and maintained Q 15min safety checks. Restraints/seclusion/emergency medication: N/A Justification of Continued Inpatient Treatment: Per Dr. He, pt. remains a high risk for discharge r/t his continued depression, decreased energy, and inability to perform ADLs independently.
[2019-07-18] MEDS: JUVEN Shake w/Arg/Glut/Ca2+Bmb (Juven 19.3gm) pkt 240ml PO SCH ×2 (07:30→17:30)
[2019-07-18 08:00] VITALS: BP 115/59
[2019-07-18] MEDS: magnesium hydroxide 30ml (MOM) UD suspension PO SCH (08:00)
[2019-07-18] MEDS: docusate sod 100mg capsule PO SCH ×2 (08:49→20:13)
[2019-07-18] MEDS: venlafaxine XR 37.5mg cap (Q24H) PO SCH (08:49)
[2019-07-18] MEDS: gabapentin 400mg capsule PO SCH ×3 (08:50→20:13)
[2019-07-18] MEDS: lithium carbonate 150mg capsule PO SCH ×2 (08:50→20:12)
[2019-07-18] MEDS: oxyCODONE IR 5mg (immed. release) tablet PO PRN ×2 (13:45→18:15)
[2019-07-18] MEDS: ibuprofen tablet 400 MG TABLET PO PRN (13:45)
[2019-07-18] MEDS: magnesium hydroxide 30ml (MOM) UD suspension PO PRN (13:45)
--- NOTE | 2019-07-18 16:44 | NUR ---
Nursing Progress Note: Legal hold: 5270 Client on involuntary status for DTS Report received from RN with use of SBAR Why are they here: Pt admitted to [place] for [facility] on 5150 for DTS. Pt was transferred from [facility] where he was in the ICU for several days due to overdose on 3000mg Wellbutrin. He also has self-inflicted lacerations with sutures to bilateral wrists with tendon and nerve damage. Pt states that this is his first suicidal attempt and was diagnosed with depression in 2016. Pt states feeling "out of it, and just very depressed and hopeless." Assessment What has happened this shift: Received pt. in bed sleeping w/o distress at the beginning of the shift. He awoke for vitals and was cooperative and pleasant. Pt smiling a lot today and able to joke with this RN and laugh, Pt took AM meds except for MoM which he wanted to take at lunch time. Pt ate meals well on own, needing minor assistance to open packaging at times. Pt tolerated and engaged in assessments willingly. Pt has intermittent moments of hopelessness and thoughts of SI. At other times, he is hopeful about future plans and is active in restoring function to his hands. Pt received Oxycodone X2 this shift and also motrin for pain in wrists and hands. He had a long telephone conversation with aunt, uncle and cousin while they waved from outside. He was happy to see them thru the window and talk. S/I, H/I: Denies A/VH: Denies Sleep: Pt. napped in AM ADL's: With assistance Group attendance: N/A Were meds taken: Yes Any med S/E: None Mental Status Exam Appearance: Neat and appropriately dressed Eye contact: Good Behavior: Cooperative, withdrawn, and isolative Speech: Soft and WNL Mood: Depressed and withdrawn Affect: Constricted Thought process: Poverty of thought Thought Content: Depression, pain, fear of returning to same environment Cognition: A&O X4 Insight: Fair Judgment: Fair Interventions PRN's used: Oxycodone, MoM, Motrin Therapeutic interventions: Introduced self and established rapport, ensured contract for safety, maintained a safe and therapeutic environment, monitored pain and need for intervention, ensured daily dressing change to bilateral arms completed, provided assistance with ADLs r/t non-weight bearing order, and maintained Q 15min safety checks. Restraints/seclusion/emergency medication: N/A Justification of Continued Inpatient Treatment: Per Dr. He, due to ongoing s/s, pt. remains a high risk for discharge.
[2019-07-18 20:09] VITALS: BP 130/89
[2019-07-18] MEDS: traZODone 50mg tablet PO SCH (20:13)
--- NOTE | 2019-07-19 00:09 | NUR ---
Nursing Progress Note: Legal hold: 5270 Client on involuntary status for DTS Report received from RN with use of SBAR Why are they here: Pt admitted to [place] for [facility] on 5150 for DTS. Pt was transferred from [facility] where he was in the ICU for several days due to overdose on 3000mg Wellbutrin. He also has self-inflicted lacerations with sutures to bilateral wrists with tendon and nerve damage. Pt states that this is his first suicidal attempt and was diagnosed with depression in 2016. Pt states feeling "out of it, and just very depressed and hopeless." Assessment What has happened this shift: Pt in his room talking with his roommate at the start of shift. Went to the day room at snack time and ate snack and watched tv. Pt states he is feeling better not hurting as much. States depression at time but has no SI. Pt left splint reapplied and went to bed. S/I, H/I: Denies A/VH: Denies Sleep: Pt. napped in AM ADL's: With assistance Group attendance: N/A Were meds taken: Yes Any med S/E: None Mental Status Exam Appearance: Neat and appropriately dressed Eye contact: Good Behavior: Cooperative, withdrawn, and isolative Speech: Soft and WNL Mood: Depressed and withdrawn Affect: Constricted Thought process: Poverty of thought Thought Content: Depression, pain, fear of returning to same environment
[2019-07-19 07:30] VITALS: BP 113/67
[2019-07-19] MEDS: lithium carbonate 150mg capsule PO SCH ×2 (08:23→20:24)
[2019-07-19] MEDS: venlafaxine XR 37.5mg cap (Q24H) PO SCH (08:23)
[2019-07-19] MEDS: gabapentin 400mg capsule PO SCH ×3 (08:24→20:22)
[2019-07-19] MEDS: docusate sod 100mg capsule PO SCH ×2 (08:24→20:23)
[2019-07-19] MEDS: magnesium hydroxide 30ml (MOM) UD suspension PO SCH (08:25)
[2019-07-19] MEDS: JUVEN Shake w/Arg/Glut/Ca2+Bmb (Juven 19.3gm) pkt 240ml PO SCH ×2 (08:26→17:30)
[2019-07-19] MEDS: oxyCODONE IR 5mg (immed. release) tablet PO PRN ×3 (08:38→18:46)
[2019-07-19] MEDS: ibuprofen tablet 400 MG TABLET PO PRN (14:39)
--- NOTE | 2019-07-19 17:49 | NUR ---
Nursing Progress Note: Legal hold: 5270 Client on involuntary status for DTS Report received from Nicko NAVARRETE with use of SBAR Why are they here: Pt admitted to [facility] on 5150 for DTS. Pt was transferred from [facility] where he was in the ICU for several days due to overdose on 3000mg Wellbutrin. He also has self-inflicted lacerations with sutures to bilateral wrists with tendon and nerve damage. Pt states that this is his first suicidal attempt and was diagnosed with depression in 2016. Pt states feeling "out of it, and just very depressed and hopeless." Assessment What has happened this shift: Received pt. in bed sleeping w/o distress at the beginning of the shift. He awoke for vitals and was cooperative and pleasant. Pt.'s affect is brighter although he still appears depressed. Pt. took AM medications and ate all his meals in the community room. 1:1 done at bedside. Pt. continues to report intrusive suicidal thoughts. Pt. continue to report anxiety over the future. Pt. states, "It's been 4 years since I graduated from high school and I should be farther along than I am... What if I don't make it? What if I fail?" Pt. kishor HI and A/V hallucinations. Pt. was seen out in the mileu talking with other patients as well as in his room reading and talking with his roommate. Pt. had a large, formed BM today. Pt. had PT today working on fine motor skills with fingers. Pt. received Oxy IR x2, Motrinx1 S/I, H/I: Denies A/VH: Denies Sleep: Pt. napped about 45 minutes on day shift. ADL's: With assistance Group attendance: N/A Were meds taken: Yes Any med S/E: None Mental Status Exam Appearance: Neat and appropriately dressed Eye contact: Good Behavior: Cooperative, social, reading in his room. Speech: Soft and WNL Mood: Depressed and withdrawn Affect: Constricted Thought process: Linear but catastrophizes Thought Content: Intrusive suicidal thoughts, fear of the future. Cognition: A&O X4 Insight: Fair Judgment: Fair Interventions PRN's used: Oxycodone x2, Motrin x1 Therapeutic interventions: Introduced self and established rapport, ensured contract for safety, maintained a safe and therapeutic environment, monitored pain and need for intervention, ensured daily dressing change to bilateral arms completed, provided assistance with ADLs r/t non-weight bearing order, and maintained Q 15min safety checks. Restraints/seclusion/emergency medication: N/A Justification of Continued Inpatient Treatment: Per Dr. He, due to ongoing s/s, pt. remains a high risk for discharge.
[2019-07-19] MEDS: traZODone 50mg tablet PO SCH (20:23)
[2019-07-19 20:24] VITALS: BP 145/79
--- NOTE | 2019-07-20 01:10 | NUR ---
Nursing Progress Note: Legal hold: 5270 Client on involuntary status for DTS Report received from Nicko NAVARRETE with use of SBAR Why are they here: Pt admitted to [facility] on 5150 for DTS. Pt was transferred from [facility] where he was in the ICU for several days due to overdose on 3000mg Wellbutrin. He also has self-inflicted lacerations with sutures to bilateral wrists with tendon and nerve damage. Pt states that this is his first suicidal attempt and was diagnosed with depression in 2016. Pt states feeling "out of it, and just very depressed and hopeless." Assessment What has happened this shift: Patient continues to talk about his perceived short comings. States he has anxiety about where his life is going. He is becoming more social with peers and less isolative. He is participating in his therapy and med compliant. S/I, H/I: Denies A/VH: Denies Sleep: Pt. napped about 45 minutes on day shift. ADL's: With assistance Group attendance: N/A Were meds taken: Yes Any med S/E: None Mental Status Exam Appearance: Neat and appropriately dressed Eye contact: Good Behavior: Cooperative, social, reading in his room. Speech: Soft and WNL Mood: Depressed and withdrawn Affect: Constricted Thought process: Linear but catastrophizes Thought Content: Intrusive suicidal thoughts, fear of the future. Cognition: A&O X4 Insight: Fair Judgment: Fair Interventions PRN's used: Oxycodone x2, Motrin x1 Therapeutic interventions: Introduced self and established rapport, ensured contract for safety, maintained a safe and therapeutic environment, monitored pain and need for intervention, ensured daily dressing change to bilateral arms completed, provided assistance with ADLs r/t non-weight bearing order, and maintained Q 15min safety checks. Restraints/seclusion/emergency medication: N/A Justification of Continued Inpatient Treatment: Per Dr. He, due to ongoing s/s, pt. remains a high risk for discharge.
[2019-07-20 07:30] VITALS: BP 137/58
[2019-07-20] MEDS: gabapentin 400mg capsule PO SCH ×3 (08:00→21:04)
[2019-07-20] MEDS: docusate sod 100mg capsule PO SCH ×2 (08:00→21:02)
[2019-07-20] MEDS: lithium carbonate 150mg capsule PO SCH ×2 (08:01→21:03)
[2019-07-20] MEDS: venlafaxine XR 37.5mg cap (Q24H) PO SCH (08:01)
[2019-07-20] MEDS: JUVEN Shake w/Arg/Glut/Ca2+Bmb (Juven 19.3gm) pkt 240ml PO SCH ×2 (08:01→18:16)
[2019-07-20] MEDS: magnesium hydroxide 30ml (MOM) UD suspension PO SCH (08:03)
[2019-07-20] MEDS: oxyCODONE IR 5mg (immed. release) tablet PO PRN ×3 (08:13→19:04)
--- NOTE | 2019-07-20 10:00 | NUR ---
Group Therapy: Process Group This Clinicians goal for this process group were as follows: (1) Share psychoeducation about the cognitive behavioral triangle, specifically regarding the interrelationship of thoughts, feelings, and behaviors. (2) Introduce the concept of thinking errors, or cognitive distortions, as they contribute to unhelpful, unbalanced, and/or irrational thinking. (3) Identify several common cognitive distortions in group. (4) Process with Patients how they relate to the different cognitive distortions that were brought up within the group milieu. Patient identified experiencing the following levels of anxiety, depression, and anger/irritability while present in the group milieu. Anxiety: 06/03 Depression: 07/03 Anger irritability: 03/05 Patient presented as open and cooperative within the group milieu. Patient was open in sharing comments when called upon by this Clinician to discuss his thoughts on the CBT triangle as it related to the interrelationship between thoughts, feelings, and behaviors as they are triggered by specific situations. Patient identified that he sometimes engaged in, "What if thinking..." in which he would wonder what it would be like if certain family members or friends whom were close to him . Patient reported that this kind of thinking wasn't helpful for him, as it usually only served to increase his unwanted depression symptoms. In the discussion of the cognitive distortion, "Hindsight," thinking Patient made a jovial comment, when asked by this Clinician whether or not he had figured out how to, "See the future." Patient stated, "I'm still working on that." Babak Guevara MA, VIDEO SURVEILLANCE TECHNICIAN Addendum: 07/20/19 at 1142 by Babak Guevara Amended: Links added.
--- NOTE | 2019-07-20 11:56 | NUR ---
DISCHARGE PLANNING Pascual reported he is thinking about going to his aunt and uncle's house in [facility] upon discharge. He has not spoken to them about this. He reported his mom suggested it and he will ask his mom if she talked to the aunt and uncle about it. Pascual's psychiatrist and therapist are both in [place] and the availability of a psychiatrist in [facility] that takes Pascual's insurance is unclear. Provided Pascual with the book Feeling Good by Inderjit Salmeron. Challenged some of Pascual's negative thoughts and reframed them in a more positive way. He reported he is still feeling really depressed and has such a hard time thinking positively. TERRENCE Resendiz
[2019-07-20] MEDS: ibuprofen tablet 400 MG TABLET PO PRN ×2 (13:43→21:05)
--- NOTE | 2019-07-20 17:40 | NUR ---
Nursing Progress Note: Legal hold: 527 Client on involuntary status for DTS Report received from Maru NAVARRETE with use of SBAR Why are they here: Pt admitted to [facility] on 5150 for DTS. Pt was transferred from [facility] where he was in the ICU for several days due to overdose on 3000mg Wellbutrin. He also has self-inflicted lacerations with sutures to bilateral wrists with tendon and nerve damage. Pt states that this is his first suicidal attempt and was diagnosed with depression in 2016. Pt states feeling "out of it, and just very depressed and hopeless." Assessment What has happened this shift: Received pt. in bed sleeping w/o distress at the beginning of the shift. He awoke for vitals and was cooperative and pleasant. Pt.'s affect is brighter although he still appears depressed. Pt. took AM medications and ate all his meals in the community room. 1:1 done in Rec Room. Pt. reports waking up feeling suicidal today, pt. states, "I felt the exact same as I did a week before my suicide attempt". Pt. reports that group brought up thoughts of his suicide attempt. Pt. denies current SI but reports depression 07/03. Pt. reports feeling anxious and overwhelmed about thoughts of discharge and what he needs to do. Pt. reports he hopes to talk with his therapist on . Pt. spoke with social welfare administrator and reported that helped him and he was feeling less anxious. Pt.'s dressings were changed per wound care nurse orders (see [facility]). S/I, H/I: Pt. reports intrusive suicidal thoughts that come and go. Pt. reports this morning he felt the same as he felt a week before his SA. A/VH: Denies Sleep: Pt. napped about 30 minutes on day shift. ADL's: With assistance Group attendance: Yes Were meds taken: Yes Any med S/E: None Mental Status Exam Appearance: Neat and appropriately dressed Eye contact: Good Behavior: Cooperative, social with peers in the community room, reading in his room. Speech: Soft and WNL Mood: Depressed and withdrawn Affect: Constricted Thought process: Linear but catastrophizes Thought Content: Intrusive suicidal thoughts, fear of the future. Cognition: A&O X4 Insight: Fair Judgment: Fair Interventions PRN's used: Oxycodone x2, Motrin x1 Therapeutic interventions: Introduced self and established rapport, ensured contract for safety, maintained a safe and therapeutic environment, monitored pain and need for intervention, ensured daily dressing change to bilateral arms completed, provided assistance with ADLs r/t non-weight bearing order, and maintained Q 15min safety checks. Restraints/seclusion/emergency medication: N/A Justification of Continued Inpatient Treatment: Per Dr. He, due to ongoing s/s, pt. remains a high risk for discharge
[2019-07-20] MEDS ORDERED: venlafaxine XR 37.5mg cap (Q24H) PO ONE (17:55)
[2019-07-20 20:10] VITALS: BP 144/90
[2019-07-20] MEDS: traZODone 50mg tablet PO SCH (21:04)
--- NOTE | 2019-07-21 00:20 | NUR ---
Nursing Progress Note: Legal hold: 5270 Client on involuntary status for DTS Report received from Maru NAVARRETE with use of SBAR Why are they here: Pt admitted to [facility] on 5150 for DTS. Pt was transferred from [facility] where he was in the ICU for several days due to overdose on 3000mg Wellbutrin. He also has self-inflicted lacerations with sutures to bilateral wrists with tendon and nerve damage. Pt states that this is his first suicidal attempt and was diagnosed with depression in 2016. Pt states feeling "out of it, and just very depressed and hopeless." Assessment What has happened this shift: Pt in room most of shift out for snacks and walked the sutton with roommate for a few laps. Pt states that he feels depressed and is having intermittent thoughts of SI. Pt talked with friends and family on the phone and the conversation was positive. Rt splint rewrapped and he was med compliant. S/I, H/I: Pt. reports intrusive suicidal thoughts that come and go. Pt. reports this morning he felt the same as he felt a week before his SA. A/VH: Denies Sleep: Pt. napped about 30 minutes on day shift. ADL's: With assistance Group attendance: Yes Were meds taken: Yes Any med S/E: None Mental Status Exam Appearance: Neat and appropriately dressed Eye contact: Good Behavior: Cooperative, social with peers in the community room, reading in his room. Speech: Soft and WNL Mood: Depressed and withdrawn Affect: Constricted Thought process: Linear but catastrophizes Thought Content: Intrusive suicidal thoughts, fear of the future. Cognition: A&O X4 Insight: Fair Judgment: Fair Interventions PRN's used: Oxycodone x1, Motrin x1 Therapeutic interventions: Introduced self and established rapport, ensured contract for safety, maintained a safe and therapeutic environment, monitored pain and need for intervention, ensured daily dressing change to bilateral arms completed, provided assistance with ADLs r/t non-weight bearing order, and maintained Q 15min safety checks. Restraints/seclusion/emergency medication: N/A Justification of Continued Inpatient Treatment: Per Dr. He, due to ongoing s/s, pt. remains a high risk for discharge
[2019-07-21] MEDS ORDERED: venlafaxine XR 37.5mg cap (Q24H) PO SCH (08:00)
[2019-07-21] MEDS: JUVEN Shake w/Arg/Glut/Ca2+Bmb (Juven 19.3gm) pkt 240ml PO SCH ×2 (08:00→17:30)
[2019-07-21] MEDS: magnesium hydroxide 30ml (MOM) UD suspension PO SCH (08:00)
[2019-07-21 08:07] VITALS: BP 103/58
[2019-07-21] MEDS: lithium carbonate 150mg capsule PO SCH ×2 (08:08→20:50)
[2019-07-21] MEDS: gabapentin 400mg capsule PO SCH ×3 (08:08→20:50)
[2019-07-21] MEDS: docusate sod 100mg capsule PO SCH ×2 (08:09→20:50)
[2019-07-21] MEDS: oxyCODONE IR 5mg (immed. release) tablet PO PRN ×3 (08:10→17:12)
--- NOTE | 2019-07-21 10:00 | NUR ---
Group Therapy: Process Group This Clinicians goal for this process group were as follows: (1) Introduce and provide psychoeducation on Valdez ABC method. (2) Continue psychoeducation and discussion on different cognitive distortions. (3) Introduce the concept of thought-stopping, and thought-reframing as an interventions to stop unhelpful/irrational thinking processes. (4) Practice examples of thought-reframing using Valdez ABC method. (5) Process Clients thoughts and reflections on this topic within the group milieu. Patient identified experiencing the following levels of anxiety, depression, and anger/irritability while present in the group milieu. Anxiety: 07/03 Depression: 06/03 Anger irritability: 03/05 Patient presented as open and cooperative within the group milieu. Patient was able to articulate a basic understanding of Valdez' ABC methodology. As an activating event that he identified, Patient reported that he was going to call a girl later in the day, and was feeling "excited," about that possibility. This Clinician used this scenario as a activity to explain the ABC method in more detail. Patient stated that he was having difficulty identifying any thoughts or scenarios outside of being in the medical milieu currently, for which he felt hopeful. Patient stated, "I'm still working on that." Babak Guevara MA, TERRENCE Addendum: 07/21/19 at 1140 by Babak Guevara SS Amended: Links added.
[2019-07-21] MEDS: ibuprofen tablet 400 MG TABLET PO PRN (11:14)
[2019-07-21] MEDS ORDERED: venlafaxine XR 37.5mg cap (Q24H) PO ONE (15:20)
--- NOTE | 2019-07-21 18:10 | NUR ---
Nursing Progress Note: Legal hold: 5270 Client on involuntary status for DTS Report received from Maru NAVARRETE with use of SBAR Why are they here: Pt admitted to [facility] on 5150 for DTS. Pt was transferred from [facility] where he was in the ICU for several days due to overdose on 3000mg Wellbutrin. He also has self-inflicted lacerations with sutures to bilateral wrists with tendon and nerve damage. Pt states that this is his first suicidal attempt and was diagnosed with depression in 2016. Pt states feeling "out of it, and just very depressed and hopeless." Assessment What has happened this shift: Pt sleeping at the change of shift. He was cooperative with assessment and compliant with medication administration. Pt reports that group therapy added to his depressed feelings. When asked about SI he reported that this question triggers SI thoughts. Regarding AH, pt indicates that he hears his name called when he wakes up. He also reports seeing yellow blotches on his sheets when he enters the room. Pt indicates a coping skill he utilizes is reading his Bible and focusing on God. He attended AM group and went outside to the patio with other patients. He continues to have pain in his L hand ranging from 4-6/10. Oxycontin IR x2 and Motrin x1 given which helped the pain. Pt refused his AM Milk of Magnesia and had a BM following lunch. Medication education provided. Discussed with Dr. Mcgregor the patients use of both [place] and Motrin, pt encouraged to inform provider of any NSAID use while on [place]. Pt socializing with other patients. S/I, H/I: Suicide thoughts increase when he is asked about them A/VH: Hears his name called when he wakes up Sleep: Slept well during the night ADL's: With assistance Group attendance: Yes Were meds taken: Yes Any med S/E: None reported or observed Mental Status Exam Appearance: Neat and clean Eye contact: Direct Behavior: Friendly and cooperative Speech: Normal rate and rhythm Mood: Depressed during group Affect: Constricted Thought process: Linear Thought Content: Intrusive suicidal thoughts Cognition: A&O X4 Insight: Fair Judgment: Fair Interventions PRN's used: Oxycodone x2, Motrin x1 Therapeutic interventions: Ensured contract for safety, maintained a safe and therapeutic environment, monitored pain and need for intervention, medication education/administration/monitoring for effects, monitored pts dressings, provided assistance with ADLs r/t non-weight bearing order, and maintained Q 15min safety checks. Restraints/seclusion/emergency medication: N/A Justification of Continued Inpatient Treatment: Pt continues to have suicidal thoughts and remains a high risk for discharge
[2019-07-21] MEDS: traZODone 50mg tablet PO SCH (20:50)
[2019-07-21 20:59] VITALS: BP 146/85
--- NOTE | 2019-07-21 22:17 | NUR ---
Nursing Progress Note Legal hold: 5270 Client on an involuntary hold for danger to self Report received from Raul NAVARRETE with use of SBAR Why are they here: The patient is a 24 year old male who was admitted on a 5150 hold after being medically treated following a suicide attempt by overdosing on Wellbutrin and cutting both his arms with a saw. He has a history of being in psychiatric hospitals in the past. Current diagnosis is Bipolar 1 disorder with depression severe. Assessment What has happened this shift: The patient has been somewhat withdrawn to his room but he is socializing with his roommate. He also spent time making calls to his family. The patient was friendly and cooperative during the evening assessment. States his anxiety was moderate but stated in the morning his anxiety was improved. The patient reports he is still feeling depressed and stated "Almost all of my thoughts aren't great" Stated he continues to have suicidal thoughts with a plan to hang himself. He is stating he can be safe here on the unit. He denies psychosis. He stated that he feels "33%" improvement in his depression since admit. recovery collector made aware of patient report of SI with plan to hang himself. S/I, H/I: Suicidal with a plan to hang himself A/VH: patient denies ADL's: the patient stated he showered in the AM and he appears clean and well groomed Were meds taken: yes Any med S/E none apparent Mental Status Exam Appearance: Appears to be his stated age. Dressed appropriately for the unit Eye contact: WNL Behavior: See above note Speech: Moderate rate and rhythm. Spontaneous Mood: Depressed Affect: congruent to mood Thought process: negative thinking Thought Content: Suicidal thoughts Cognition: Alert and oriented. Insight: Fair Judgment: fair Interventions PRN's used: none Therapeutic interventions: One to one with the patient to assess severity of depressed mood and self harm risk Restraints/seclusion/emergency medication: NA Justification of Continued Inpatient Treatment: The patient continues to have suicidal thoughts to hang himself.
[2019-07-22 07:21] VITALS: BP 111/58
[2019-07-22] MEDS: docusate sod 100mg capsule PO SCH ×2 (07:21→20:38)
[2019-07-22] MEDS: lithium carbonate 150mg capsule PO SCH ×2 (07:22→20:38)
[2019-07-22] MEDS: ibuprofen tablet 400 MG TABLET PO PRN (07:22)
[2019-07-22] MEDS: gabapentin 400mg capsule PO SCH ×3 (07:22→20:38)
[2019-07-22] MEDS: LORazepam 1 MG tablet PO PRN (07:26)
[2019-07-22] MEDS: JUVEN Shake w/Arg/Glut/Ca2+Bmb (Juven 19.3gm) pkt 240ml PO SCH ×2 (07:30→17:51)
[2019-07-22] MEDS ORDERED: venlafaxine XR 37.5mg cap (Q24H) PO SCH (08:00)
[2019-07-22] MEDS: magnesium hydroxide 30ml (MOM) UD suspension PO SCH (08:00)
--- NOTE | 2019-07-22 10:00 | NUR ---
Group Therapy: Process Group This Clinicians goal for this process group were as follows: (1) Ask scaling questions about Patients current anxiety, depression, and irritability symptoms as a check-in. (2) Introduce the concept of emotional and situational triggers. (3) Discuss how triggering events can produce negative, and unwanted thoughts, feelings and behaviors. (4) Provide psychoeducation on what an intervention is; in this context, an action, or thought that can reduce the acuity of unwanted mental health symptoms. (5) Review the concept of thought-stopping, and thought-reframing as interventions to stop unhelpful/irrational thinking processes. (6) Process Clients thoughts and reflections on this topic within the group milieu. Patient identified experiencing the following levels of anxiety, depression, and anger/irritability while present in the group milieu. Anxiety: 3/10 Depression: 4/10 Anger irritability: 03/05 Patient presented as open and cooperative within the group milieu. Patient wore a dark t-shirt, with a [employer] sweat shirt and dark pants. Patient presented as verbally engaged during the conversation about identifying thoughts, feelings and actions that he experiences when he becomes emotionally triggered. Patient reported that within the medical milieu, a triggering experience for him is when medical providers, and others on the unit ask him if he has any plans to hurt, or kill himself. Patient reports that this question sometimes puts intrusive thoughts regarding self harm and/or suicide into his had. Patient mentioned that his anxiety was a 6/10 right before he came to group, but he reported that he took an "Ativan," which reduced his symptoms to a 3. This Clinician encouraged Patient to consider interventions that he could use when he returned home to reduce emotional escalation when he became triggered by people who asked him about his, "Future," when he was feeling depressed. Patient reported that he would do his best to redirect the conversation by making attempts to talk about something else. In the attempt to assist Patient in strategizing about what he would do if his first intervention was not successful--in order to assist him in strategic thinking in the future, Patient reported that he would try to engage the person that he was talking to in an activity that they could do together that would redirect the conversation away from his, "Future plans," particularly if he was becoming triggered by the conversation. Babak Guevara MA, BLISTER PACK OPERATOR Addendum: 07/22/19 at 1151 by Babak GRANADOS Amended: Links added.
--- NOTE | 2019-07-22 11:36 | NUR ---
Nursing Progress Note: Legal hold: 5270 Client on involuntary status for DTS Report received from nurse with use of SBAR: ROSALBA Mahoney Why are they here: Pt admitted to [place] for [facility] on 5150 for DTS. Pt was transferred from [facility] where he was in the ICU for several days due to overdose on 3000mg Wellbutrin. He also has self-inflicted lacerations with sutures to bilateral wrists with tendon and nerve damage. Pt states that this is his first suicidal attempt and was diagnosed with depression in 2016. Pt states feeling "out of it, and just very depressed and hopeless." Assessment What has happened this shift: Received pt. awake in bed at the beginning of the shift, he requested PRN pain medication for chronic pain in left hand, administered with effectiveness. 1:1 completed at bedside, pt. presents as cooperative, however reports anxiety, PRN Ativan administered. When this display card writer questioned pt. in regard to what was contributing to his anxiety, he stated, "I'm not sure, but I was feeling this way before when I did what I did" (referring to the event that brought him into the hospital). However, pt. denies any current S/I, and is able to contract for safety on the unit. He also reports that he has been feeling less depressed. This display card writer encouraged pt. to let staff know if he began having any suicidal thoughts or increased anxiety, and he reported understanding. Pt. admits that he is having decreased pain, and continues to enjoy participating in physical therapy (has not been receiving PT daily r/t physical therapist on vacation). Dressing change completed per orders and lacerations to bilateral lower arms appear to be healing well, skin is CDI with scabs in place. Pt. intermittently paces and reads in his room throughout the shift, and is observed to be interacting appropriately with others. S/I, H/I: Denies A/VH: Denies, does not appear internally preoccupied Sleep: Pt. reports he slept well, sleep hours are 7.75 ADL's: Pt. continues to be non weight bearing to bilateral wrists and splints will remain in place for 6-8 weeks. Pt. requires full assistance with all ADLs requiring use of bilateral arms Group attendance: Yes Were meds taken: Yes Any med S/E: None Mental Status Exam Appearance: Neat and appropriately dressed Eye contact: Good Behavior: Cooperative, somewhat withdrawn Speech: Soft and WNL Mood: Depressed and withdrawn Affect: Blunted Thought process: Linear Thought Content: Continued depression and hopelessness with some increased anxiety Cognition: A&O X4 Insight: Fair Judgment: Fair Interventions PRN's used: Motrin and Ativan Therapeutic interventions: Ensured contract for safety, maintained a safe and therapeutic environment, monitored pain and need for intervention, completed ordered dressing change to bilateral arms, provided assistance with ADLs r/t non-weight bearing order, Provided active listening and positive encouragement, and maintained Q 15min safety checks. Restraints/seclusion/emergency medication: N/A Justification of Continued Inpatient Treatment: Pt. continues to require medication adjustments, assistance to perform ADLs, and a safe and therapeutic environment.
[2019-07-22] MEDS ORDERED: venlafaxine XR 37.5mg cap (Q24H) PO ONE (15:40)
--- NOTE | 2019-07-22 15:56 | NUR ---
Physical Therapy: Per PT, therapy will be decreased from daily to 3-4 times a week. PT will come and consult with patient tomorrow, will advise pt. of this .
[2019-07-22 19:00] VITALS: BP 134/80
[2019-07-22] MEDS: traZODone 50mg tablet PO SCH (20:37)
--- NOTE | 2019-07-23 04:56 | NUR ---
Nursing Progress Note: Legal hold: 5270 Client on involuntary status for DTS Report received from nurse with use of SBAR: BARAK Mixon Why are they here: Pt admitted to [place] [facility] on 5150 for DTS. Pt was transferred from [facility] where he was in the ICU for several days due to overdose on 3000mg Wellbutrin. He also has self-inflicted lacerations with sutures to bilateral wrists with tendon and nerve damage. Pt states that this is his first suicidal attempt and was diagnosed with depression in 2016. Pt states feeling "out of it, and just very depressed and hopeless." Assessment What has happened this shift: Patient observed socializing with peers at the beginning of shift. Observed holding hands with female peer and by staff. Patient remains pleasant and cooperative; compliant with medication. Declined PRNs this shift. He participated in HS snack and briefly on the phone. Later observed reading in his room. Patient continues to report hopelessness and anxiousness but feeling a little better. He denies SI, HI, A/VH. Patient DSGs to bilateral arms CDI. S/I, H/I: Denies A/VH: Denies Sleep: Refer to sleep assessment ADL's: Pt. continues to be non weight bearing to bilateral wrists and splints will remain in place for 6-8 weeks. Pt. requires full assistance with all ADLs requiring use of bilateral arms Group attendance: No groups this shift Were meds taken: Yes Any med S/E: None observed or reported Mental Status Exam Appearance: Neat, clean and appropriately dressed. Eye contact: Good Behavior: Socializing with peers, reading Speech: Soft and WNL Mood: Depressed and withdrawn Affect: Constricted Thought process: Linear Thought Content: Hopelessness and anxiety Cognition: A&O X4 Insight: Fair Judgment: Fair Interventions PRN's used: None Therapeutic interventions: Ensured contract for safety, maintained a safe and therapeutic environment, monitored pain and need for intervention, completed ordered dressing change to bilateral arms, provided assistance with ADLs r/t non-weight bearing order, Provided active listening and positive encouragement, and maintained Q 15min safety checks. Restraints/seclusion/emergency medication: N/A Justification of Continued Inpatient Treatment: Pt. continues to require medication adjustments, assistance to perform ADLs, and a safe and therapeutic environment.
[2019-07-23] MEDS: JUVEN Shake w/Arg/Glut/Ca2+Bmb (Juven 19.3gm) pkt 240ml PO SCH ×2 (07:30→18:03)
[2019-07-23 08:00] VITALS: BP 113/65
[2019-07-23] MEDS: magnesium hydroxide 30ml (MOM) UD suspension PO SCH (08:00)
[2019-07-23] MEDS: gabapentin 400mg capsule PO SCH ×3 (08:50→20:49)
[2019-07-23] MEDS: venlafaxine XR 37.5mg cap (Q24H) PO SCH (08:50)
[2019-07-23] MEDS: lithium carbonate 150mg capsule PO SCH ×2 (08:50→20:48)
[2019-07-23] MEDS: docusate sod 100mg capsule PO SCH ×2 (08:50→20:48)
--- NOTE | 2019-07-23 10:00 | NUR ---
Group Therapy: Process Group This Clinicians goal for this process group were as follows: (1) Ask scaling questions about Patients current anxiety, depression, and irritability symptoms as a check-in. (2) Review the concept of emotional and situational triggers as it relates to potential onsets of maladaptive episodes of emotional escalation. (3) Introduce the concept of an intervention, as a thought, or activity that can reduce unwanted thoughts and feelings that contribute to maladaptive emotional escalation. (4) Review the concept of thought-stopping, and thought-reframing as interventions to stop unhelpful/irrational thinking processes. (5) Process Clients thoughts and reflections on this topic within the group milieu. Patient identified experiencing the following levels of anxiety, depression, and anger/irritability while present in the group milieu. Anxiety: 3.510 Depression: 410 Anger irritability: 03/05 Patient presented as open and cooperative within the group milieu. Patient was dressed in a white tank top with black running pants. Patient wore bandages on both arms, as he continues to recover from deep cuts to both arms, sustained in a suicide attempt. Patient was able to align and relate to other Patients who contributed verbally to the process group, in sharing that he becomes emotionally triggered when they ask him on the unit floor about his current suicidal ideation, and plans for the future. Patient reported that this line of questioning fills him with, "Dark thoughts." This Clinician shared the intervention of thought-stopping, and thought-reframing in the context of holding more hopeful thoughts about the future, as it is possible that one, "Will see more of what they are looking for." More specifically, if you think negative thoughts you will see more negativity, if you think more balanced, helpful, hopeful or rational thoughts, then you will see more things to be positive and hopeful for. Babak Guevara MA, MANAGER SHIFT Addendum: 07/23/19 at 1151 by Babak Guevara Amended: Links added.
--- NOTE | 2019-07-23 11:06 | NUR ---
Nursing Progress Note: Legal hold: 5270 Client on involuntary status for DTS Report received from nurse with use of SBAR: LAMAR Taylor Why are they here: Pt admitted to [place] for [facility] on 5150 for DTS. Pt was transferred from [facility] where he was in the ICU for several days due to overdose on 3000mg Wellbutrin. He also has self-inflicted lacerations with sutures to bilateral wrists with tendon and nerve damage. Pt states that this is his first suicidal attempt and was diagnosed with depression in 2016. Pt states feeling "out of it, and just very depressed and hopeless." Assessment What has happened this shift: Received pt. asleep in bed at the beginning of the shift, he awoke and began exercising in his room. 1:1 completed at bedside, pt. continues to endorse anxiety, however he denies the need for a PRN Anxiolytic at this and reports that he feels exercising helped to quell some of his anxiety. When this appeals writer questioned further regarding his anxiety, he stated, '"They are reoccurring thoughts, fears, and scenarios. It's hard to push them out of my head like they teach you to do." He continues to deny S/I, and admits that his depression has lessened. This appeals writer again encouraged pt. to let staff know if he began having any suicidal thoughts or increased anxiety, and he reported understanding. Pt. denies the need for pain medication, however continues to experience some chronic pain in his left hand. He is looking forward to working with PT today, dressings to bilateral arms remain CDI. Pt. intermittently reading in his room, pacing the hallway, and attends group this AM. S/I, H/I: Denies A/VH: Denies, does not appear internally preoccupied Sleep: Pt. reports he slept well, sleep hours are 8 ADL's: Pt. continues to be non weight bearing to bilateral wrists and splints will remain in place for 6-8 weeks. Pt. requires full assistance with all ADLs requiring use of bilateral arms Group attendance: Yes Were meds taken: Yes Any med S/E: None Mental Status Exam Appearance: Neat and appropriately dressed Eye contact: Good Behavior: Cooperative, somewhat withdrawn Speech: Soft and WNL Mood: Depressed and withdrawn Affect: Blunted Thought process: Linear Thought Content: Continued depression and hopelessness with some increased anxiety, however pt. able to use effective coping mechanisms Cognition: A&O X4 Insight: Fair Judgment: Fair Interventions PRN's used: None Therapeutic interventions: Ensured contract for safety, maintained a safe and therapeutic environment, monitored pain and need for intervention, provided assistance with ADLs r/t non-weight bearing order, Provided active listening and positive encouragement, and maintained Q 15min safety checks. Restraints/seclusion/emergency medication: N/A Justification of Continued Inpatient Treatment: Per Dr. Mcgregor, pt. continues to require medication adjustments, assistance to perform ADLs, and a safe and therapeutic environment.
--- NOTE | 2019-07-23 13:05 | NUR ---
Reassessment: Patient's weight fluctuates, currently -15 kg since admit however likely scaled wt error as pt continues with 75-100% PO intake of meals and 100% PO intake of Edward shakes throughout LOS meeting nutrient needs. LBM 07/21. No further nutrition intervention warranted at this time. Will continue to follow. Rec: 1. continue regular diet 2. Edward shake BIDBD 3. routine bowel care 4. wt per rx Addendum: 07/23/19 at [address] Amended: Links added.
--- NOTE | 2019-07-23 13:47 | NUR ---
Nursing Note: Called [facility] [place] (Dr. Galeano[facility]) pt's orthopedic surgeon and left a message for them to call the unit back, regarding when pt. will be able to permanently remove his bilateral arm splints and if it is alright for him to shower without dressings on at this time. Awaiting a call back, will endorse to oncoming shift.
--- NOTE | 2019-07-23 14:09 | NUR ---
Physical Therapy: Pt. received PT today, and per PT team it was decided that pt. will now receive PT on M, W, and F.
--- NOTE | 2019-07-23 15:45 | NUR ---
CATHY: Pt's medication is unavailable tonight per pharmacy and is on order, will arrive tomorrow. Dr. He is aware, and reports it is okay for pt. to miss one dose.
--- NOTE | 2019-07-23 15:48 | NUR ---
RIGHT & LEFT SURGICAL SPLINTS: Per physical therapy, pt. is cleared from having to wear splint on his left forearm at this time. He will be cleared from having to wear the right splint on Friday06/25/19. It is alright for pt. to shower without wearing splints or dressings at this time. Dr. He is aware and agrees with this plan. Will consult with wound care. Addendum: 07/23/19 at 1604 by Renate Woodruff RN Wound care is aware and they will be in to visit patient on Friday and re-evaluate any needed wound care orders. Will D/C would care intervention regarding the need for dressings to be wrapped in the shower.
[2019-07-23 20:00] VITALS: BP 146/87
[2019-07-23] MEDS: traZODone 50mg tablet PO SCH (20:47)
--- NOTE | 2019-07-24 04:53 | NUR ---
Nursing Progress Note: Legal hold: 5270 Client on involuntary status for DTS Report received from nurse with use of SBAR: BARAK Mixon Why are they here: Pt admitted to [place] [facility] on 5150 for DTS. Pt was transferred from [facility] where he was in the ICU for several days due to overdose on 3000mg Wellbutrin. He also has self-inflicted lacerations with sutures to bilateral wrists with tendon and nerve damage. Pt states that this is his first suicidal attempt and was diagnosed with depression in 2016. Pt states feeling "out of it, and just very depressed and hopeless." Assessment What has happened this shift: Patient observed socializing with peers at the beginning of shift. Pleasant and cooperative with all care; compliant with medication. No PRNs provided this shift. Rex[facility]i not provided d/t unavailability this shift. Patient expressed possible D/C plan to go to [facility] with his aunt and reported, "if it happens I'll be really happy with it." Patient's affect appeared brighter this shift the previous night as he was socializing with peers, initiating conversation with board writer and smiling when talking. Patient DSGs remain CDI and no longer using splint for L arm and he reports looking forward to R splint coming off Friday. S/I, H/I: Denies A/VH: Denies Sleep: Refer to sleep assessment ADL's: Pt. continues to be non weight bearing to bilateral wrists and splints will remain in place for 6-8 weeks. Pt. requires full assistance with all ADLs requiring use of bilateral arms Group attendance: No groups this shift Were meds taken: Yes Any med S/E: None observed or reported Mental Status Exam Appearance: Neat, clean and appropriately dressed. Eye contact: Good Behavior: Socializing with peers, pleasant and cooperative Speech: Clear, audible, regular rate/rhythm Mood: "Not bad" Affect: Brightening Thought process: Linear Thought Content: Possible discharge planning, arms doing better, less hopelessness Cognition: A&O X4 Insight: Fair Judgment: Fair Interventions PRN's used: None Therapeutic interventions: Ensured contract for safety, maintained a safe and therapeutic environment, monitored pain and need for intervention, completed ordered dressing change to bilateral arms, provided assistance with ADLs r/t non-weight bearing order, Provided active listening and positive encouragement, and maintained Q 15min safety checks. Restraints/seclusion/emergency medication: N/A Justification of Continued Inpatient Treatment: Pt. continues to require medication adjustments, assistance to perform ADLs, and a safe and therapeutic environment.
[2019-07-24 08:00] VITALS: BP 132/55
[2019-07-24] MEDS: gabapentin 400mg capsule PO SCH ×3 (08:17→20:54)
[2019-07-24] MEDS: docusate sod 100mg capsule PO SCH ×2 (08:17→20:54)
[2019-07-24] MEDS: LORazepam 1 MG tablet PO PRN (08:17)
[2019-07-24] MEDS: venlafaxine XR 37.5mg cap (Q24H) PO SCH (08:18)
[2019-07-24] MEDS: lithium carbonate 150mg capsule PO SCH ×2 (08:18→20:53)
[2019-07-24] MEDS: JUVEN Shake w/Arg/Glut/Ca2+Bmb (Juven 19.3gm) pkt 240ml PO SCH ×2 (08:19→18:03)
[2019-07-24] MEDS: magnesium hydroxide 30ml (MOM) UD suspension PO SCH (08:19)
--- NOTE | 2019-07-24 17:06 | NUR ---
Nursing Progress Note: Legal hold: 5270 Client on involuntary status for DTS Report received from nurse with use of SBAR: Why are they here: Pt admitted to [place] [facility] on 5150 for DTS. Pt was transferred from [facility] where he was in the ICU for several days due to overdose on 3000mg Wellbutrin. He also has self-inflicted lacerations with sutures to bilateral wrists with tendon and nerve damage. Pt states that this is his first suicidal attempt and was diagnosed with depression in 2016. Pt states feeling "out of it, and just very depressed and hopeless." Assessment What has happened this shift: Patient was awake and out of bed at change of shift. He was visible on the unit. He took all of his medications as prescribed. He reported some anxiety early in the shift. He was sociable and friendly. He was able to work with the physical therapist who removed his second splint. He took a shower and scrubbed both forearms. Lotion was applied and skin prep. Patient is very excited to see how well he is healing. He is planning to be able to discharge by next week. S/I, H/I: Denies A/VH: Denies, does not appear internally preoccupied Sleep: Pt. reports he slept well, sleep hours are 6.75 ADL's: Pt. continues to be non-weight bearing to bilateral wrists and splints will remain in place for 6-8 weeks. Pt. requires full assistance with all ADLs requiring use of bilateral arms Group attendance: Yes Were meds taken: Yes Any med S/E: None Mental Status Exam Appearance: Neat, clean and appropriately dressed Eye contact: Good Behavior: Cooperative, calm Speech: Normal rate and rhythm Mood: I feel a lot better because I know I am healing and getting better. I can see the end now. Affect: Full Thought process: Linear Thought Content: Future oriented and planning to discharge this next week Cognition: A&O X4 Insight: Poor Judgment: Poor Interventions PRN's used: None Therapeutic interventions: Ensured contract for safety, maintained a safe and therapeutic environment, monitored pain and need for intervention, provided assistance with ADLs r/t non-weight bearing order, Provided active listening and positive encouragement, and maintained Q 15min safety checks. Restraints/seclusion/emergency medication: N/A Justification of Continued Inpatient Treatment: Per Dr. Mcgregor, pt. continues to require medication adjustments, assistance to perform ADLs, and a safe and therapeutic environment.
[2019-07-24 19:45] VITALS: BP 138/92
[2019-07-24] MEDS: traZODone 50mg tablet PO SCH (20:54)
--- NOTE | 2019-07-25 02:48 | NUR ---
Nursing Progress Note: Legal hold: 5270 Client on involuntary status for DTS Report received from nurse with use of SBAR: BARAK Mixon Why are they here: Pt admitted to [place] for [facility] on 5150 for DTS. Pt was transferred from [facility] where he was in the ICU for several days due to overdose on 3000mg Wellbutrin. He also has self-inflicted lacerations with sutures to bilateral wrists with tendon and nerve damage. Pt states that this is his first suicidal attempt and was diagnosed with depression in 2016. Pt states feeling "out of it, and just very depressed and hopeless." Assessment What has happened this shift: Patient on the unit talking on the phone at the beginning of shift. Pleasant and cooperative with all care; compliant with medication. Although he reported mild anxiety and mild pain this shift he refused PRNs and appeared to tolerate well. Patient presented to literary writer in enjoyment and showed that his splints removed from bilateral arms. Patient reports "feeling really good" continuing to express "I don't know what tomorrow holds but I also don't want to downplay feeling good." Patient denies all mental healthy symptoms. S/I, H/I: Denies A/VH: Denies Sleep: Refer to sleep assessment ADL's: Requires assist Group attendance: No groups this shift Were meds taken: Yes Any med S/E: None observed or reported Mental Status Exam Appearance: Neat, clean and appropriately dressed. Eye contact: Good Behavior: Socializing with peers, pleasant and cooperative Speech: Clear, audible, regular rate/rhythm Mood: Euthymic Affect: Brightening Thought process: Linear Thought Content: Happy with splints being removed and looking forward to possibly d/c to aunt Cognition: A&O X4 Insight: Fair Judgment: Fair Interventions PRN's used: None Therapeutic interventions: Ensured contract for safety, maintained a safe and therapeutic environment, monitored pain and need for intervention, completed ordered dressing change to bilateral arms, provided assistance with ADLs r/t non-weight bearing order, Provided active listening and positive encouragement, and maintained Q 15min safety checks. Restraints/seclusion/emergency medication: N/A Justification of Continued Inpatient Treatment: Pt. continues to require medication adjustments, assistance to perform ADLs, and a safe and therapeutic environment.
[2019-07-25 07:47] VITALS: BP 111/63
[2019-07-25] MEDS: magnesium hydroxide 30ml (MOM) UD suspension PO SCH (08:22)
[2019-07-25] MEDS: lithium carbonate 150mg capsule PO SCH ×2 (08:23→21:09)
[2019-07-25] MEDS: gabapentin 400mg capsule PO SCH ×3 (08:23→21:09)
[2019-07-25] MEDS: docusate sod 100mg capsule PO SCH ×2 (08:23→21:10)
[2019-07-25] MEDS: venlafaxine XR 37.5mg cap (Q24H) PO SCH (08:23)
[2019-07-25] MEDS: JUVEN Shake w/Arg/Glut/Ca2+Bmb (Juven 19.3gm) pkt 240ml PO SCH ×2 (08:28→17:53)
--- NOTE | 2019-07-25 11:43 | NUR ---
Nursing Progress Note: Legal hold: 5270 Client on involuntary status for DTS Report received from [facility] nurse with use of SBAR: Why are they here: Pt admitted to [place] for [facility] on 5150 for DTS. Pt was transferred from [facility] where he was in the ICU for several days due to overdose on 3000mg Wellbutrin. He also has self-inflicted lacerations with sutures to bilateral wrists with tendon and nerve damage. Pt states that this is his first suicidal attempt and was diagnosed with depression in 2016. Pt states feeling "out of it, and just very depressed and hopeless." Assessment What has happened this shift: Patient was asleep at change of shift. He was easily awakened. He came for breakfast and was sociable. He took all of his medications as prescribed. He is friendly and personable with staff and with other patients. He took a shower after breakfast. He is really pleased to have his bandages and his splints removed. Physical therapy removed the splints yesterday and dressings are no longer needed. He has some loss of feeling in his left hand. He states that yesterday was a really good day for him and he is hopeful for the future. He has been calling his family members and making plans for when he is able to discharge. S/I, H/I: Denies A/VH: Denies Sleep: Refer to sleep assessment ADL's: Independent Group attendance: Yes and participates Were meds taken: Yes Any med S/E: None observed or reported Mental Status Exam Appearance: Neat, clean and appropriately dressed. Eye contact: Good Behavior: Socializing with peers, pleasant and cooperative Speech: Clear, audible, regular rate/rhythm Mood: Yesterday was a great day and I am feeling better. Affect: Brightening Thought process: Linear Thought Content: Happy with splints being removed and looking forward to possibly d/c to aunt Cognition: A&O X4 Insight: Fair Judgment: Fair Interventions PRN's used: None Therapeutic interventions: Ensured contract for safety, maintained a safe and therapeutic environment, monitored pain and need for intervention, completed ordered dressing change to bilateral arms, provided assistance with ADLs r/t non-weight bearing order, Provided active listening and positive encouragement, and maintained Q 15min safety checks. Restraints/seclusion/emergency medication: N/A Justification of Continued Inpatient Treatment: Pt. continues to require medication adjustments, assistance to perform ADLs, and a safe and therapeutic environment.
[2019-07-25 19:43] VITALS: BP 131/87
[2019-07-25] MEDS: traZODone 50mg tablet PO SCH (21:09)
--- NOTE | 2019-07-26 03:11 | NUR ---
Nursing Progress Note: Legal hold: 5270 Client on involuntary status for DTS Report received from nurse with use of SBAR: BARAK Mixon Why are they here: Pt admitted to [place] for [facility] on 5150 for DTS. Pt was transferred from [facility] where he was in the ICU for several days due to overdose on 3000mg Wellbutrin. He also has self-inflicted lacerations with sutures to bilateral wrists with tendon and nerve damage. Pt states that this is his first suicidal attempt and was diagnosed with depression in 2016. Pt states feeling "out of it, and just very depressed and hopeless." Assessment What has happened this shift: Patient socializing with peers and staff at the beginning of shift. Pleasant and cooperative with all care; compliant with medication. No PRNs needed this shift. Continues to talk with family about plans for discharge over the phone. Patient confirmed with his uncle that patient will be allowed to stay with aunt and uncle post discharge. Continues to deny SI, HI, A/VH and does not appear internally preoccupied. He remains in an upbeat mood throughout the shift. Participated in HS snack and walking the unit with roommate. S/I, H/I: Denies A/VH: Denies Sleep: Refer to sleep assessment ADL's: Independent Group attendance: No groups this shift Were meds taken: Yes Any med S/E: None observed or reported Mental Status Exam Appearance: Neat, clean and appropriately dressed. Eye contact: Good Behavior: Socializing with peers, pleasant and cooperative Speech: Clear, audible, regular rate/rhythm Mood: Euthymic Affect: Brightening Thought process: Linear Thought Content: Discharge planning, feeling better Cognition: A&O X4 Insight: Fair Judgment: Fair Interventions PRN's used: None Therapeutic interventions: Ensured contract for safety, maintained a safe and therapeutic environment, monitored pain and need for intervention, completed ordered dressing change to bilateral arms, provided assistance with ADLs r/t non-weight bearing order, Provided active listening and positive encouragement, and maintained Q 15min safety checks. Restraints/seclusion/emergency medication: N/A Justification of Continued Inpatient Treatment: Pt. continues to require medication adjustments, assistance to perform ADLs, and a safe and therapeutic environment.
[2019-07-26 08:00] VITALS: BP 112/63
[2019-07-26] MEDS: magnesium hydroxide 30ml (MOM) UD suspension PO SCH (08:08)
[2019-07-26] MEDS: gabapentin 400mg capsule PO SCH ×3 (08:09→21:05)
[2019-07-26] MEDS: venlafaxine XR 37.5mg cap (Q24H) PO SCH (08:09)
[2019-07-26] MEDS: lithium carbonate 150mg capsule PO SCH ×2 (08:10→21:04)
[2019-07-26] MEDS: docusate sod 100mg capsule PO SCH ×2 (08:10→21:05)
[2019-07-26] MEDS: JUVEN Shake w/Arg/Glut/Ca2+Bmb (Juven 19.3gm) pkt 240ml PO SCH ×2 (08:12→09:12)
--- NOTE | 2019-07-26 10:00 | NUR ---
Group Therapy: Process Group This Clinicians goal for this process group were as follows: (1) Ask scaling questions about Patients current anxiety, depression, and irritability symptoms as a check-in. (2) Review the concept of emotional and situational triggers as it relates to potential onsets of maladaptive episodes of emotional escalation. (3) Review the concept of thought-stopping, and thought-reframing as interventions to stop unhelpful/irrational thinking processes. (4) Provide psychoeducation on mindfulness as a principle that can assist in reducing maladaptive symptoms of emotional escalation. (5) Process Clients thoughts and reflections on this topic within the group milieu. Patient identified experiencing the following levels of anxiety, depression, and anger/irritability while present in the group milieu. Anxiety: 05/03 Depression: 07/03 Anger irritability: 03/05 Patient presented as open and cooperative within the group milieu. Patient brought a blue, squeeze ball with him that he squeezed occasionally in an unobtrusive fashion as he recently had bandages removed from his forearms, that had been present due to his suicide attempt by cutting his risks. Patient again shared the comment that he becomes emotionally triggered when he is asked about his suicidal ideation, or his future in the context of this risk. This Clinician encouraged Patient to try to identify specific thoughts, feelings, and actions that he may find himself engaging in that could lead to a negative cascade, or chain reaction that could amplify his unwanted feelings of depression in an attempt to identify behaviors that could stop said chain reaction. Babak Guevara MA, TERRENCE Addendum: 07/26/19 at 1140 by Babak Guevara SS Amended: Links added.
--- NOTE | 2019-07-26 17:45 | NUR ---
Nursing Progress Note: Legal hold: 5270 Client on involuntary status for DTS Report received from [facility] nurse with use of SBAR: Why are they here: Pt admitted to [place] [facility] on 5150 for DTS. Pt was transferred from [facility] where he was in the ICU for several days due to overdose on 3000mg Wellbutrin. He also has self-inflicted lacerations with sutures to bilateral wrists with tendon and nerve damage. Pt states that this is his first suicidal attempt and was diagnosed with depression in 2016. Pt states feeling "out of it, and just very depressed and hopeless." Assessment What has happened this shift: Received pt. at change of shift in bed sleep. Pt. awake for breakfast, pt. seen smiling. Pt. talking about practical jokes and is in a pleasant mood. 1:1 done at bedside, pt. denies SI/HI, A/V hallucinations. Pt. reports some dark thoughts this morning when he went to take a nap after breakfast, but reports keeping himself busy to keep those thoughts away. Pt. states, "I'm not trying to analyze it though" Pt. states, "I'm feeling better, two days ago I felt hopeful and excited and I have not felt like that in a long time." Pt. reports feeling hopeful about moving in with his aunt and uncle and applying for a discipleship school where he can furhter recover. Pt. reports he continues to have numbness and tingling in his left hand and restricted range of motion in bilateral hands. Pt. received PT today. Pt.'s wounds are well approximated and show no S&S of infection. S/I, H/I: Denies A/VH: Denies Sleep: Pt. did not nap today. ADL's: Independent Group attendance: Yes Were meds taken: Yes Any med S/E: None observed or reported Mental Status Exam Appearance: Neat, clean and appropriately dressed. Eye contact: Good Behavior: Socializing with peers, pleasant and cooperative Speech: WNL Mood: "Better" Affect: Bright Thought process: Linear Thought Content: Hopeful about discharge plans Cognition: A&O X4 Insight: Fair Judgment: Fair Interventions PRN's used: None Therapeutic interventions: Ensured contract for safety, maintained a safe and therapeutic environment, monitored pain and need for intervention, completed ordered dressing change to bilateral arms, provided assistance with ADLs r/t non-weight bearing order, Provided active listening and positive encouragement, and maintained Q 15min safety checks. Restraints/seclusion/emergency medication: N/A Justification of Continued Inpatient Treatment: Pt. continues to require medication adjustments, assistance to perform ADLs, and a safe and therapeutic environment.
[2019-07-26 20:40] VITALS: BP 129/90
[2019-07-26] MEDS: traZODone 50mg tablet PO SCH (21:04)
--- NOTE | 2019-07-27 04:06 | NUR ---
Nursing Progress Note: Legal hold: 5270 Client on involuntary status for DTS Report received from nurse with use of SBAR: BARAK Mixon Why are they here: Pt admitted to [place] for [facility] on 5150 for DTS. Pt was transferred from [facility] where he was in the ICU for several days due to overdose on 3000mg Wellbutrin. He also has self-inflicted lacerations with sutures to bilateral wrists with tendon and nerve damage. Pt states that this is his first suicidal attempt and was diagnosed with depression in 2016. Pt states feeling "out of it, and just very depressed and hopeless." Assessment What has happened this shift: Patient socializing with peers at the beginning of shift. Pleasant and cooperative with all care; compliant with medication. No PRNs provided this shift. Patient denies SI, HI, A/VH this shift and remains hopeful and goal oriented this shift. 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 He continued to engage without prompting this shift. Patient reports looking forward to discharging to his aunt and uncle. Describes himself as "hopeful." He participated in HS snack and read bible before retiring to bed. S/I, H/I: Denies A/VH: Denies Sleep: Refer to sleep assessment ADL's: Independent Group attendance: No groups this shift Were meds taken: Yes Any med S/E: None observed or reported Mental Status Exam Appearance: Neat, clean and appropriately dressed. Eye contact: Good Behavior: Socializing with peers, pleasant and cooperative Speech: Clear, audible, regular rate/rhythm Mood: "Hopeful" Affect: Bright Thought process: Linear Thought Content: Goal oriented, looking forward to discharge Cognition: A&O X4 Insight: Fair Judgment: Fair Interventions PRN's used: None Therapeutic interventions: Ensured contract for safety, maintained a safe and therapeutic environment, monitored pain and need for intervention, completed ordered dressing change to bilateral arms, provided assistance with ADLs r/t non-weight bearing order, Provided active listening and positive encouragement, and maintained Q 15min safety checks. Restraints/seclusion/emergency medication: N/A Justification of Continued Inpatient Treatment: Pt. continues to require medication adjustments, assistance to perform ADLs, and a safe and therapeutic environment.
[2019-07-27 08:00] VITALS: BP 100/47
[2019-07-27] MEDS: magnesium hydroxide 30ml (MOM) UD suspension PO SCH (08:00)
[2019-07-27] MEDS: docusate sod 100mg capsule PO SCH ×2 (08:22→21:17)
[2019-07-27] MEDS: lithium carbonate 150mg capsule PO SCH ×2 (08:22→21:17)
[2019-07-27] MEDS: gabapentin 400mg capsule PO SCH ×3 (08:22→21:19)
[2019-07-27] MEDS: venlafaxine XR 37.5mg cap (Q24H) PO SCH (08:22)
[2019-07-27] MEDS: JUVEN Shake w/Arg/Glut/Ca2+Bmb (Juven 19.3gm) pkt 240ml PO SCH ×2 (08:24→18:09)
--- NOTE | 2019-07-27 09:00 | NUR ---
Individual Therapy This Clinician provided individual therapeutic support to Patient within his room in the medical milieu. This Clinicians goal in providing this service was to develop rapport with Patient, and explore with Patient his thoughts and feelings about his spiritual tradition, as he identifies his konstantin as being of significant importance to him as a protective factor in his life. This Clinician asked Patient questions about his hindu history, as Patient was enthusiastic about talking about this area of his life. Patient expressed his interest in Voodoo theology and noted that he had spent a year at a [facility] in [facility]. Patient reported that he enjoyed his time there, but had to leave the program, at least partially because he stopped taking his medications. Patient expressed uncertainty about where his interest in Voodoo theology would lead him, but he reported feeling strengthened when he read the Bible. This Clinician validated Patients initiative in pursuing his konstantin as a protective factor in his life. He encouraged Patient to focus on the message of healing, love, and hope that he identified in his personal study as being meaningful to him in the [id number], and encouraged him not to worry about the unknowns in the future as this may cause unnecessary negative rumination and worry that may be contraindicated at the moment for Patient. Patient presented as open and cooperative within the milieu of individual therapy, and was open and receptive to the thoughts shared by this Clinician. Babak Guevara MA, TERRENCE Addendum: 07/28/19 at 0844 by Babak Guevara SS Amended: Links added.
--- NOTE | 2019-07-27 10:00 | NUR ---
Group Therapy: Process Group This Clinicians goal for this process group were as follows: (1) Ask scaling questions about Patients current anxiety, depression, and irritability symptoms as a check-in. (2) Provide psychoeducation about CBT schema, presuppositions and filters through which all people view the world. (3) Discuss how thinking errors can skew the way we think, which can negatively impact our thoughts, feelings, and actions. (4) Provide psychoeducation on several different thinking errors. (5) Process Clients thoughts and reflections on this topic within the group milieu. Patient identified experiencing the following levels of anxiety, depression, and anger/irritability while present in the group milieu. Anxiety: 07/03 Depression: 06/03 Anger irritability: 03/05 Patient presented as open and cooperative within the group milieu. Patient arrived within the group milieu approximately 20 minutes after the beginning the group. Patient wore a [employer] sweatshirt and black athletic pants. He presented as subdued and unobtrusive within the group milieu. Patient did not participate verbally in session during the discussion on thinking errors and thought reframing; however, he did raise his hand on occasion--along with other members of the group--when he identified with the kind of thinking error being discussed. Babak Guevara MA, TERRENCE Addendum: 07/28/19 at 0810 by Babak Guevara SS Amended: Links added.
[2019-07-27] MEDS: LORazepam 1 MG tablet PO PRN (12:25)
--- NOTE | 2019-07-27 15:26 | NUR ---
DISCHARGE PLANNING Psacual interviewed with Pk (ph# [phone]) at [facility] in [place]. He would like to go into their 9 month program upon discharge. Called Pk to inquire about Pascual's follow up care. Pk reported Pascual will have access to a phone for follow up with his therapist and psychiatrist. They will also assist Pascual with going to PT or any other appointments he may have. Pk asked about Pascual's limitations and asked that the physical therapist give him a call. Road Worker will ask Pascual to ask PT to call Pk the next time she works with him. Called and left a message at [facility] (ph# [phone]) to schedule follow up appts. TERRENCE Resendiz
--- NOTE | 2019-07-27 18:18 | NUR ---
Nursing Progress Note: Legal hold: 5270 Client on involuntary status for DTS Report received from [facility] with use of SBAR: Why are they here: Pt admitted to [place] for [facility] on 5150 for DTS. Pt was transferred from [facility] where he was in the ICU for several days due to overdose on 3000mg Wellbutrin. He also has self-inflicted lacerations with sutures to bilateral wrists with tendon and nerve damage. Pt states that this is his first suicidal attempt and was diagnosed with depression in 2016. Pt states feeling "out of it, and just very depressed and hopeless." Assessment What has happened this shift: Received pt. at change of shift in bed sleep. Pt. awake for breakfast, pt. seen smiling. Pt. joking and is in a pleasant mood. 1:1 done at bedside, pt. denies SI/HI, A/V hallucinations. Pt. reports some dark thoughts this morning but reads and keeps himself busy to keep them away. Pt. reports being anxious about the future but also excited and hopeful for the future, especially about a discipleship school he will apply for. Pt. doing exercises for his fingers. S/I, H/I: Denies A/VH: Denies Sleep: Pt. did not nap today. ADL's: Independent Group attendance: Yes Were meds taken: Yes Any med S/E: None observed or reported Mental Status Exam Appearance: Neat, clean and appropriately dressed. Eye contact: Good Behavior: Socializing with peers, pleasant and cooperative Speech: WNL Mood: Euthymic with some anxiety Affect: congruent to mood. Thought process: Linear Thought Content: Hopeful about discharge plans but also anxious Cognition: A&O X4 Insight: Fair Judgment: Fair Interventions PRN's used: None Therapeutic interventions: Ensured contract for safety, maintained a safe and therapeutic environment, monitored pain and need for intervention, completed ordered dressing change to bilateral arms, provided assistance with ADLs r/t non-weight bearing order, Provided active listening and positive encouragement, and maintained Q 15min safety checks. Restraints/seclusion/emergency medication: N/A Justification of Continued Inpatient Treatment: Pt. continues to require medication adjustments, assistance to perform ADLs, and a safe and therapeutic environment.
[2019-07-27 20:00] VITALS: BP 146/92
[2019-07-27] MEDS: traZODone 50mg tablet PO SCH (21:17)
--- NOTE | 2019-07-28 03:48 | NUR ---
Nursing Progress Note: Legal hold: 5270 Client on involuntary status for DTS Report received from nurse with use of SBAR: BARAK Mixon Why are they here: Pt admitted to [place] for [facility] on 5150 for DTS. Pt was transferred from [facility] where he was in the ICU for several days due to overdose on 3000mg Wellbutrin. He also has self-inflicted lacerations with sutures to bilateral wrists with tendon and nerve damage. Pt states that this is his first suicidal attempt and was diagnosed with depression in 2016. Pt states feeling "out of it, and just very depressed and hopeless." Assessment What has happened this shift: Patient observed talking on the phone at the beginning of shift. Pleasant and cooperative with all care; compliant with all medication. No PRNs needed this shift. Patient reported mild anxiety r/t discharge planning but continues to look forward to d/c. He reported he will be going to aunt and uncle's home in [facility] for a few days before going to new facility. Per SS note patient interviewed with Pk at [facility] in [place] where patient would like to go for their 9 month program post discharge. Patient continues to deny SI, HI, A/VH. S/I, H/I: Denies A/VH: Denies Sleep: Refer to sleep assessment ADL's: Independent Group attendance: No groups this shift Were meds taken: Yes Any med S/E: None observed or reported Mental Status Exam Appearance: Neat, clean and appropriately dressed. Eye contact: Good Behavior: Socializing with peers, pleasant and cooperative Speech: Clear, audible, regular rate/rhythm Mood: Anxious but hopeful Affect: Bright Thought process: Linear Thought Content: Goal oriented, looking forward to discharge Cognition: A&O X4 Insight: Fair Judgment: Fair Interventions PRN's used: None Therapeutic interventions: Ensured contract for safety, maintained a safe and therapeutic environment, monitored pain and need for intervention, completed ordered dressing change to bilateral arms, provided assistance with ADLs r/t non-weight bearing order, Provided active listening and positive encouragement, and maintained Q 15min safety checks. Restraints/seclusion/emergency medication: N/A Justification of Continued Inpatient Treatment: Pt. continues to require medication adjustments, assistance to perform ADLs, and a safe and therapeutic environment.
[2019-07-28] MEDS: JUVEN Shake w/Arg/Glut/Ca2+Bmb (Juven 19.3gm) pkt 240ml PO SCH ×2 (07:30→17:46)
[2019-07-28 08:00] VITALS: BP 130/70
[2019-07-28] MEDS: magnesium hydroxide 30ml (MOM) UD suspension PO SCH (08:00)
[2019-07-28] MEDS: docusate sod 100mg capsule PO SCH ×2 (08:00→20:09)
[2019-07-28] MEDS: lithium carbonate 150mg capsule PO SCH ×2 (08:54→20:11)
[2019-07-28] MEDS: venlafaxine XR 37.5mg cap (Q24H) PO SCH (08:54)
[2019-07-28] MEDS: gabapentin 400mg capsule PO SCH ×3 (08:57→20:09)
--- NOTE | 2019-07-28 10:00 | NUR ---
Group Therapy: Process Group This Clinicians goals for this process group were as follows: (1) Ask scaling questions about Patients current anxiety, depression, and irritability symptoms as a check-in. (2) Share psychoeducation about emotional escalation as it relates to stress and negative symptoms, Fight, flight, freeze. (3) Share psychoeducation on principles of mindfulness and emotional relaxation techniques that Patients may utilize to reduce the acuity of unwanted emotional escalation. (4) Provide psychoeducation on the STOPP acronym: Stop, Take a Breath, Observe the situation, Put things into perspective, and, Practice what works. (5) Process Clients thoughts and reflections on this topic within the group milieu. Patient identified experiencing the following levels of anxiety, depression, and anger/irritability while present in the group milieu. Anxiety: 06/03 Depression: 06/03 Anger irritability: 03/05 Patient presented as open and cooperative within the group milieu. Patient presented as calm, unobtrusive, and verbally engaged during the discussion on emotional escalation and interventions that one could utilize to reduce episodes of unwanted emotional escalation. Patient often yuki his hand with other Patients in the group, when asked if he could identify with certain intrusive thoughts or unpleasant feelings in the body that corresponded to different levels of emotional escalation Patient identified his cousin as a supportive individual that he could reach out to during episodes of unwanted emotional escalation as a support person that he could rely on to assist him in calming down. Babak Guevara MA, TERRENCE Addendum: 07/29/19 at 0819 by Babak Guevara SS Amended: Links added.
--- NOTE | 2019-07-28 12:38 | NUR ---
Nursing Progress Note: Legal hold: 5270 Client on involuntary status for DTS Report received from nurse with use of SBAR: LAMAR Mahoney Why are they here: Pt admitted to [place] for [facility] on 5150 for DTS. Pt was transferred from [facility] where he was in the ICU for several days due to overdose on 3000mg Wellbutrin. He also has self-inflicted lacerations with sutures to bilateral wrists with tendon and nerve damage. Pt states that this is his first suicidal attempt and was diagnosed with depression in 2016. Pt states feeling "out of it, and just very depressed and hopeless." Assessment What has happened this shift: Received pt.sleeping in bed at the beginning of the shift, he awoke to attend breakfast and was observed to be interacting appropriately with others. 1:1 completed at bedside, pt. presents as cooperative, slightly anxious, and somewhat withdrawn. He continues to endorse anxiety, especially present in the morning upon first waking up. Pt. admits that this anxiety contributes to increased negative thoughts, and he reports that this morning he was having some S/I with a plan to drown himself. However, pt. denies any current S/I and is able to contract for safety on the unit, will continue to monitor. When this life insurance underwriter questioned pt. regarding his possible upcoming discharge he stated, "I'm nervous about leaving because I am going to miss everyone here, but I do feel more positive and have more energy." He continues to report chronic left hand pain, however denies the need for PRN pain medication, and reports he is looking forward to working with PT hopefully today. Lacerations on bilateral upper extremities remain BABY SITTER per orders and skin appears CDI. Pt. attends group and is observed to be up minimally interacting with others throughout the shift. S/I, H/I: Denies A/VH: Denies, does not appear internally preoccupied Sleep: Pt. reports he slept well, sleep hours are 7.25 ADL's: Pt. continues to to require some assistance from staff r/t bilateral wrist weakness. Group attendance: Yes Were meds taken: Yes Any med S/E: None Mental Status Exam Appearance: Neat and appropriately dressed Eye contact: Good Behavior: Cooperative, slightly anxious, and somewhat withdrawn Speech: Soft and WNL Mood: Somewhat anxious Affect: Blunted Thought process: Linear Thought Content: Anxiety r/t possible upcoming discharge Cognition: A&O X4 Insight: Fair Judgment: Fair Interventions PRN's used: None Therapeutic interventions: Ensured contract for safety, maintained a safe and therapeutic environment, monitored anxiety/ pain and need for intervention, provided needed assistance with ADLs, provided active listening and positive encouragement, and maintained Q 15min safety checks. Restraints/seclusion/emergency medication: N/A Justification of Continued Inpatient Treatment: Per Dr. He, pt. continues to assistance to perform some ADLs, and a safe and therapeutic environment. Placement is pending.
[2019-07-28 19:56] VITALS: BP 128/78
--- NOTE | 2019-07-28 23:02 | NUR ---
Nursing Progress Note: Legal hold: 5270 Client on involuntary status for DTS Report received from nurse with use of SBAR: Rainer Why are they here: Pt admitted to [place] for [facility] on 5150 for DTS. Pt was transferred from [facility] where he was in the ICU for several days due to overdose on 3000mg Wellbutrin. He also has self-inflicted lacerations with sutures to bilateral wrists with tendon and nerve damage. Pt states that this is his first suicidal attempt and was diagnosed with depression in 2016. Pt states feeling "out of it, and just very depressed and hopeless." Assessment What has happened this shift: Patient on the unit talking to peers and smiling. Pt is observed dancing in the sutton joking around with a peer. He said he is feeling "really good" and is excited about discharging on Friday. [place] and is very excited to be able to work with his hands and be outside. Patient denies all mental healthy symptoms. S/I, H/I: Denies A/VH: Denies Sleep: Refer to sleep assessment ADL's: Requires assist Group attendance: No groups this shift Were meds taken: Yes Any med S/E: None observed or reported Mental Status Exam Appearance: Neat, clean and appropriately dressed. Eye contact: Good Behavior: Socializing with peers, pleasant and cooperative Speech: Clear, audible, regular rate/rhythm Mood: Euthymic Affect: Brightening Thought process: Linear Thought Content: happy about DC soon Cognition: A&O X4 Insight: Fair Judgment: Fair Interventions PRN's used: None Therapeutic interventions: Ensured contract for safety, maintained a safe and therapeutic environment, monitored pain and need for intervention, completed ordered dressing change to bilateral arms, provided assistance with ADLs r/t non-weight bearing order, Provided active listening and positive encouragement, and maintained Q 15min safety checks. Restraints/seclusion/emergency medication: N/A Justification of Continued Inpatient Treatment: Pt. continues to require medication adjustments, assistance to perform ADLs, and a safe and therapeutic environment.
[2019-07-29] MEDS: JUVEN Shake w/Arg/Glut/Ca2+Bmb (Juven 19.3gm) pkt 240ml PO SCH ×2 (07:30→17:42)
[2019-07-29] MEDS: docusate sod 100mg capsule PO SCH ×4 (08:00→21:21)
[2019-07-29] MEDS: magnesium hydroxide 30ml (MOM) UD suspension PO SCH (08:00)
[2019-07-29 08:35] VITALS: BP 104/61
[2019-07-29] MEDS: lithium carbonate 150mg capsule PO SCH ×2 (08:44→20:49)
[2019-07-29] MEDS: gabapentin 400mg capsule PO SCH ×3 (08:44→20:49)
[2019-07-29] MEDS: venlafaxine XR 37.5mg cap (Q24H) PO SCH (08:44)
--- NOTE | 2019-07-29 10:00 | NUR ---
Group Therapy: Process Group This Clinicians goals for this process group were as follows: (1) Ask scaling questions about Patients current anxiety, depression, and irritability symptoms as a check-in. (2) Share with Patients psychoeducation about the importance of being able to identify safe, and supportive people who can assist them with their mental and emotional needs. (3) Share psychoeducation on interpersonal boundaries and considerations to assist Patients in developing the ability to discern which groups and individuals will be helpful in assisting them during times of emotional escalation and crisis. (4) Review emotional relaxation techniques (5) Engage Patients in discussion of the topics discussed within the group milieu. Patient identified experiencing the following levels of anxiety, depression, and anger/irritability while present in the group milieu. Anxiety: 06/03 Depression: 06/03 Anger irritability: 04/05 Patient presented as open and cooperative within the group milieu. Patient wore a ramí[employer] sweatshirt and black running pants within the group milieu. Patient arrived approximately 40 minutes after the start time of the group. Patient presented as subdued and unobtrusive within the group milieu. When called upon by this Clinician to share his thoughts on interpersonal boundaries and questions that he might ask individuals to see if they could become more trusted members of his mental health support system, Patient reported that he, "Came to group late, and didn't really know the answer to that question." In this context, this Clinician reviewed the importance of asking questions of potential support people so that Patients could ascertain whether or not a person would be safe to share their mental health history with. Babak Guevara MA, TERRENCE Addendum: 07/30/19 at 0803 by Babak Guevara SS Amended: Links added.
--- NOTE | 2019-07-29 10:37 | NUR ---
Nursing Progress Note: Legal hold: 5270 Client on involuntary status for DTS Report received from nurse with use of SBAR: LAMAR Mahoney Why are they here: Pt admitted to [place] for [facility] on 5150 for DTS. Pt was transferred from [facility] where he was in the ICU for several days due to overdose on 3000mg Wellbutrin. He also has self-inflicted lacerations with sutures to bilateral wrists with tendon and nerve damage. Pt states that this is his first suicidal attempt and was diagnosed with depression in 2016. Pt states feeling "out of it, and just very depressed and hopeless." Assessment What has happened this shift: Received pt. sleeping in bed at the beginning of the shift, he awoke and was observed to be interacting animatedly with his roommate. 1:1 completed at bedside, pt.continues to present as cooperative, however slightly restless. He denies S/I, but continues to endorse anxiety especially in the mornings, states, "I think it's this place." Pt. reports he is having some negative intrusive thoughts/flashbacks this morning regarding the incident which brought him to the hospital, but he is able to distract himself effectively and contract for safety. Pt. reports that he is looking forward to discharging tomorrow. He attends morning groups, and is observed to be interacting appropriately with others throughout the morning. PT in to work with patient today, and provided him and nursing staff with a handout of exercises he can continue to do to strengthen his bilateral upper extremities. PT has also been communicating with pt's surgeon, and the coordinator of the program which he will be attending, in order to arrange outpatient PT follow-up. Pt. may use bilateral extremities to perform ADLs, however may not perform any resistance or lifting. Lacerations on bilateral upper extremities remain [employer]ER[employer]PER[employer] per orders and skin appears CDI. S/I, H/I: Denies A/VH: Denies, does not appear internally preoccupied Sleep: Pt. reports his sleep was restless and he experienced some nightmares, sleep hours are 8.25 ADL's: Pt. continues to to require some assistance from staff r/t bilateral wrist weakness. Group attendance: Yes Were meds taken: Yes Any med S/E: None Mental Status Exam Appearance: Neat and appropriately dressed Eye contact: Good Behavior: Cooperative, and slightly restless Speech: Soft and WNL Mood: Pleasant Affect: Slightly blunted, animates with conversation Thought process: Linear Thought Content: Some continued anxiety Cognition: A&O X4 Insight: Fair Judgment: Fair Interventions PRN's used: None Therapeutic interventions: Ensured contract for safety, maintained a safe and therapeutic environment, monitored anxiety/ pain and need for intervention, provided needed assistance with ADLs, communicated with PT and received a handout of exercises he can continue to do to strengthen his bilateral upper extremities, provided active listening and positive encouragement, and maintained Q 15min safety checks. Restraints/seclusion/emergency medication: N/A Justification of Continued Inpatient Treatment: Per Dr. He, pt. will be discharging tomorrow, he continues to require a safe and supportive environment.
--- NOTE | 2019-07-29 14:18 | NUR ---
DISCHARGE PLANNING Pascual's family will pick him up at 1:00 PM on Friday. His mother, Joycelyn (ph# [phone]), is concerned that his Rx of Rexulti may need a prior auth. TERRENCE Resendiz
[2019-07-29] MEDS ORDERED: VENL225T3 PO (16:58)
[2019-07-29] MEDS ORDERED: BREX3TAB PO (16:58)
[2019-07-29] MEDS ORDERED: LITH300T5 PO (16:58)
[2019-07-29] MEDS ORDERED: TRAZ150T78 PO (16:58)
[2019-07-29] MEDS ORDERED: GABA800T11 PO (16:58)
[2019-07-29 20:00] VITALS: BP 147/88
[2019-07-29] MEDS ORDERED: traZODone 150mg tablet PO ONE (20:00)
--- NOTE | 2019-07-30 04:16 | NUR ---
Nursing Progress Note: Legal hold: 5270 Client on involuntary status for DTS Report received from ROSALBA Carter with use of SBAR. Why are they here: Patient admitted to [place] [facility] on 5150 for DTS. Patient was transferred from [facility] where he was in the ICU for several days due to overdose on 3000mg Wellbutrin. He also has self-inflicted lacerations with sutures to bilateral wrists with tendon and nerve damage. Pt states that this is his first suicidal attempt and was diagnosed with depression in 2016. Patient states feeling "out of it, and just very depressed and hopeless." Assessment What has happened this shift: Received patient walking in the sutton listening to headphones at shift change. This promotion writer introduced self and established rapport. Patient states I am feeling hopeful for the first time in a long time. Patient talks about how grateful he is to the staff. Patient was asked, what is the first thing youre going to do when you get out of here, patient states eat ice cream! Patients affect is bright. Rake level 0.5 drawn on 07/15/19. S/I, H/I: Patient denies both. A/VH: Patient denies both. Sleep: Administered Trazadone 150mg. See Sleep Assessment for total hours. ADL's: Requires assistance. Group attendance: night shift, no group. Were meds taken: Takes medication without incident. Any med S/E: None observed or reported Mental Status Exam Appearance: Neat, clean and appropriately dressed in personal clothing. Eye contact: Good Behavior: Socializing with peers, pleasant and cooperative Speech: Clear, audible, regular rate/rhythm Mood: Euthymic Affect: Bright Thought process: Linear Thought Content: Discharge tomorrow. Grateful to staff. Cognition: A&O X4 Insight: Fair Judgment: Fair Interventions PRN's used: None Therapeutic interventions: 1:1 therapeutic assessment, maintained a safe and therapeutic environment, monitored pain and need for intervention, active listening and positive encouragement, maintained Q 15min safety checks. Restraints/seclusion/emergency medication: N/A Justification of Continued Inpatient Treatment: Per Dr. He, patient will be discharging tomorrow, patient continues to require a safe and supportive environment.
[2019-07-30] MEDS: JUVEN Shake w/Arg/Glut/Ca2+Bmb (Juven 19.3gm) pkt 240ml PO SCH (07:30)
[2019-07-30 08:00] VITALS: BP 105/50
[2019-07-30] MEDS: magnesium hydroxide 30ml (MOM) UD suspension PO SCH (08:00)
[2019-07-30] MEDS: venlafaxine XR 37.5mg cap (Q24H) PO SCH (09:16)
[2019-07-30] MEDS: docusate sod 100mg capsule PO SCH (09:16)
[2019-07-30] MEDS: lithium carbonate 150mg capsule PO SCH (09:17)
[2019-07-30] MEDS: gabapentin 400mg capsule PO SCH ×2 (09:17→13:19)
--- NOTE | 2019-07-30 09:55 | NUR ---
Nursing Note: This feature writer spoke with Fernando from physical therapy, who reported that he spoke with pt's surgeon, Dr. Galeano, who will be sending an order to [place] out-patient physical therapy for pt. to continue PT upon discharge. Pt. will continue out-patient PT X3 weeks, and until being evaluated by PT is not to engage in any lifting or resistance activities with bilateral upper extremities. Pt. advised of these plans and reports understanding.
--- NOTE | 2019-07-30 10:00 | NUR ---
Nursing Progress Note: Legal hold: 5270 Client on involuntary status for DTS Report received from nurse with use of SBAR: Karina RN Why are they here: Pt admitted to [place] for [facility] on 5150 for DTS. Pt was transferred from [facility] where he was in the ICU for several days due to overdose on 3000mg Wellbutrin. He also has self-inflicted lacerations with sutures to bilateral wrists with tendon and nerve damage. Pt states that this is his first suicidal attempt and was diagnosed with depression in 2016. Pt states feeling "out of it, and just very depressed and hopeless." Assessment What has happened this shift: Received pt. sleeping in bed at the beginning of the shift, he awoke and was observed to be interacting animatedly with others on the unit. 1:1 completed at bedside, pt. denies any S/I and is able to contract for safety. He reports he is still experiencing some depression, but it looking forward to discharge and attending the program that has been set up for him. Lacerations on bilateral upper extremities remain ANA MARIA per orders and skin appears CDI. S/I, H/I: Denies A/VH: Denies, does not appear internally preoccupied Sleep: Pt. he slept well ADL's: Pt. continues to to require some assistance from staff r/t bilateral wrist weakness. Group attendance: Yes Were meds taken: Yes Any med S/E: None Mental Status Exam Appearance: Neat and appropriately dressed Eye contact: Good Behavior: Cooperative, and slightly restless Speech: Soft and WNL Mood: Pleasant Affect: Animated Thought process: Linear Thought Content: Excitement r/t discharge Cognition: A&O X4 Insight: Fair Judgment: Fair Interventions PRN's used: None Therapeutic interventions: Ensured contract for safety, maintained a safe and therapeutic environment, monitored anxiety/ pain and need for intervention, provided needed assistance with ADLs, communicated with PT regarding follow-up plans, provided active listening and positive encouragement, and maintained Q 15min safety checks. Restraints/seclusion/emergency medication: N/A Justification of Continued Inpatient Treatment: Pt. is discharging with parents today.
--- NOTE | 2019-07-30 10:00 | NUR ---
Group Therapy: Process Group Ibeth Clinicians goals for this process group were as follows: (1) Ask scaling questions about Patients current anxiety, depression, and irritability symptoms as a check-in. (2) Share psychoeducation about the importance of being able to identify regular activities, support people, and thoughts (Anchors) that contribute to mental health well-being and stability. (3) Share psychoeducation about how the gradual removal of said activities, people and behaviors may lead to the erosion of mental well-being and stability. (4) Encourage Patients to identify support anchors that they need to maintain in their life that will promote their mental and emotional well-being. (5) Engage Patients in discussion of the topics shared within the group milieu. Patient identified experiencing the following levels of anxiety, depression, and anger/irritability while present in the group milieu. Anxiety: 06/03 Depression: 07/03 Anger irritability: 03/05 Patient presented as open and cooperative within the group milieu. Patient was only present within the group milieu for the last 5-7 minutes of the group milieu. Hence, he did not participate verbally in the topic being discussed today. This Clinician provided him with a synopsis of the topic that had been discussed; namely, the importance of recognizing and maintaining regular thoughts, actions, activities and people in our lives that help keep us "emotionally-anchored" to health mental health habits. This Clinician provided Patient with a handout on the material that was discussed at the end of the process group. Babak Guevara MA, TERRENCE Addendum: 07/30/19 at 1142 by Babak Guevara SS Amended: Links added.
--- NOTE | 2019-07-30 13:26 | NUR ---
Discharge Note: Pt. discharged from the unit at approximately 1326, accompanied by Mich Pack. He is being picked up by his parents and taken to [place]. This continuity writer reviewed discharge instructions, medications, and follow-up instructions with pt. and he reported understanding. He is able to contract for safety. Belongings inventoried and returned to pt. by Jyothi. No smoking cessation needed, and pt. is being sent with a hard copy of his prescriptions.
== END 2019-07-30 13:26 | disposition home or self-care (01) | DRG 885 ==
LOC: ADULT MH 15:45
PROVIDERS: ADMIT Psychiatry & Neurology Psychiatry; ATTEND Psychiatry & Neurology Psychiatry
DX: F31.5 Bipolar disorder, current episode depressed, severe, with psychotic features (principal); T43.292A Poisoning by other antidepressants, intentional self-harm, initial encounter; F15.90 Other stimulant use, unspecified, uncomplicated; K59.00 Constipation, unspecified; S61.511A Laceration without foreign body of right wrist, initial encounter; S61.512A Laceration without foreign body of left wrist, initial encounter; X78.9XXA Intentional self-harm by unspecified sharp object, initial encounter; Y92.89 Other specified places as the place of occurrence of the external cause; Z79.899 Other long term (current) drug therapy
CPT/HCPCS: 36415; 73221; 80048; 80053; 80061; 80178; 83036; 84443; 85025; 87081; 97110; 97140; 97161; 97530